=== PATIENT | male | born 1960 | race Caucasian/White ===

== ENCOUNTER 2021-07-21 10:37 | Emergency (ER) | payer OTHER ==
[2021-07-21 12:10] LABS: BUN Blood Urea Nitrogen 10 mg/dL (7-18); Bicarbonate 29 mmol/L (21-32); Glucose Level 88 mg/dL (74-106); Sodium Level 143 mmol/L (136-145)
--- NOTE | 2021-07-21 12:12 | ER ---
Nurse's Notes [facility] Name: Jose Ny Age: 60 yrs Sex: Male : 1960 Arrival Date: 07/21/2021 Time: 10:40 Bed 4 Private MD: Juan Carlos Adams Diagnosis: Pruritus, unspecified Presentation: 07/21 10:57 Chief complaint: Pt's sister states "he had shingles back in June but he says the aa5 burning it's getting worse". Coronavirus screen: At this time, the client does not indicate any symptoms associated with coronavirus-19. Ebola Screen: No symptoms or risks identified at this time. Initial Sepsis Screen: Does the patient meet any 2 criteria? No. Patient's initial sepsis screen is negative. Does the patient have a suspected source of infection? No. Patient's initial sepsis screen is negative. Risk Assessment: Do you want to hurt yourself or someone else? Unable to obtain. Onset of symptoms was July 2021. 10:57 Method Of Arrival: Ambulatory aa5 10:57 Acuity: DREAD 4 aa5 Triage Assessment: 11:00 General: Appears distressed, uncomfortable, Behavior is cooperative, appropriate for bp age, anxious. Pain: Complains of pain in anterior aspect of left shoulder. EENT: No deficits noted. Neuro: Level of Consciousness is awake, alert, obeys commands, Oriented to Appropriate for age. Cardiovascular: Rhythm is sinus rhythm. Respiratory: No deficits noted. GI: No signs and/or symptoms were reported involving the gastrointestinal system. : No signs and/or symptoms were reported regarding the genitourinary system. Derm: Rash noted that is NONE NOTED. Musculoskeletal: No signs and/or symptoms reported regarding the musculoskeletal system. Historical: - Allergies: 10:56 No Known Allergies; aa5 - PMHx: 10:56 CVA; Hypercholesterolemia; aa5 - Immunization history:: Client reports having NOT received the Covid vaccine. - Social history:: Smoking status: Patient denies any tobacco usage or history of. Screenin:00 Abuse screen: Denies threats or abuse. Denies injuries from another. Nutritional bp screening: No deficits noted. Tuberculosis screening: No symptoms or risk factors identified. Fall Risk None identified. Assessment: 11:00 General: SEE TRIAGE NOTE. bp 12:00 Reassessment: No changes from previously documented assessment. Patient and/or family ll1 updated on plan of care and expected duration. Pain level reassessed. 13:00 Reassessment: No changes from previously documented assessment. Patient and/or family ll1 updated on plan of care and expected duration. Pain level reassessed. Vital Signs: 10:57 BP 141 / 90; Pulse 64; Resp 16 S; Temp 97.0(TE); Pulse Ox 100% on R/A; aa5 11:45 BP 137 / 70; Pulse 66; Resp 16; Pulse Ox 100% on R/A; mh5 13:04 BP 131 / 75; Pulse 65; Resp 16; Pulse Ox 100% ; ll1 ED Course: 10:40 Patient arrived in ED. mr 10:40 Juan Carlos Adams DO is Private Physician. mr 10:56 Tabitha Machado FNP-C is [facility]. kb 10:56 Nicole Adams MD is Attending Physician. kb 10:56 Arm band placed on. aa5 10:59 Triage completed. aa5 11:12 Elroy Brown, RN is Primary Nurse. bp 11:44 Patient has correct armband on for positive identification. Bed in low position. Call [facility] light in reach. Side rails up X 1. Warm blanket given. Pulse ox on. NIBP on. 11:44 Basic Metabolic Panel Sent. mh5 11:44 Basic Metabolic Panel Sent. mh5 13:04 No provider procedures requiring assistance completed. Patient did not have IV access ll1 during this emergency room visit. Administered Medications: No medications were administered Outcome: 12:11 Discharge ordered by MD. kb 13:05 Discharged to home ambulatory. ll1 13:05 Condition: stable 13:05 Discharge instructions given to patient, family, Instructed on discharge instructions, follow up and referral plans. medication usage, Demonstrated understanding of instructions, follow-up care, medications, Prescriptions given X 1. 13:06 Patient left the ED. ll1 Signatures: Tabitha Machado FNP-C FNP-Ckb RiveraShea mr BrooksOmayra RN RN Shelby Rodas Elroy Huffman, Jonatan Reilly RN, RN RN ll1 Corrections: (The following items were deleted from the chart) 10:57 10:56 PMHx: CVA 2016; aa5 aa5 11:00 10:57 Acuity: DREAD 5 aa5 aa5
--- NOTE | 2021-07-21 12:12 | EDPHYS ---
Physician Documentation [facility] Name: Jose Ny Age: 60 yrs Sex: Male : 1960 Arrival Date: 07/21/2021 Time: 10:40 Bed 4 Private MD: Bryan [facility] ED Physician Nicole Adams HPI: 07/21 11:24 This 60 yrs old Male presents to ER via Ambulatory with complaints of kb Shingles. 11:24 The patient's rash thought to be caused by an unknown cause. The rash is located on the kb anterior aspect of left shoulder. The rash can be described as erythematous. Onset: The symptoms/episode began/occurred 1 month(s) ago. Associated signs and symptoms: Pertinent positives: burning sensation, itching, Pertinent negatives: fever, Pain. Severity of symptoms: At their worst the symptoms were moderate in the emergency department the symptoms have improved. The patient has not experienced similar symptoms in the past. The patient has not recently seen a physician. Pt reports he had shingles to left shoulder in June. Reports rash has gone away, but burning sensation and itching are still there. Also reports skin burning and itching to right leg, abd, back and head. . Historical: - Allergies: 10:56 No Known Allergies; aa5 - PMHx: 10:56 CVA; Hypercholesterolemia; aa5 - Immunization history:: Client reports having NOT received the Covid vaccine. - Social history:: Smoking status: Patient denies any tobacco usage or history of. ROS: 11:24 Constitutional: Negative for fever, chills, and weight loss. kb 11:24 Skin: Positive for of the face, scalp, chest, abdomen, left arm and right leg, itching and burning. 11:24 All other systems are negative. Exam: 11:24 Constitutional: This is a well developed, well nourished patient who is awake, alert, kb and in no acute distress. Head/Face: Normocephalic, atraumatic. ENT: Moist Mucous membranes Respiratory: Respirations even and unlabored. No increased work of breathing, no retractions or nasal flaring. MS/ Extremity: Pulses equal, no cyanosis. Neurovascular intact. Full, normal range of motion. Neuro: Awake and alert, GCS 15, oriented to person, place, time, and situation. Moves all extremities. Normal gait. Psych: Awake, alert, with orientation to person, place and time. Behavior, mood, and affect are within normal limits. 11:24 Skin: rash a mild rash is noted, rash can be described as erythematous, on the anterior aspect of left shoulder. Vital Signs: 10:57 BP 141 / 90; Pulse 64; Resp 16 S; Temp 97.0(TE); Pulse Ox 100% on R/A; aa5 11:45 BP 137 / 70; Pulse 66; Resp 16; Pulse Ox 100% on R/A; mh5 13:04 BP 131 / 75; Pulse 65; Resp 16; Pulse Ox 100% ; ll1 MDM: 11:02 Patient medically screened. kb 11:26 Data reviewed: vital signs, nurses notes. Data interpreted: Pulse oximetry: on room air kb is 100 %. Interpretation: normal. 12:10 Counseling: I had a detailed discussion with the patient and/or guardian regarding: the kb historical points, exam findings, and any diagnostic results supporting the discharge/admit diagnosis, the need for outpatient follow up, a family practitioner, to return to the emergency department if symptoms worsen or persist or if there are any questions or concerns that arise at home. 07/21 11:13 Order name: Basic Metabolic Panel kb 07/21 11:13 Order name: Basic Metabolic Panel; Complete Time: 12:10 EDMS Administered Medications: No medications were administered Disposition Summary: 07/21/21 12:11 Discharge Ordered Location: Home kb Condition: Stable kb Diagnosis - Pruritus, unspecified kb Followup: kb - With: Emergency Department - When: As needed - Reason: Worsening of condition Followup: kb - With: Private Physician - When: 2 - 3 days - Reason: Recheck today's complaints, Continuance of care, Re-evaluation by your physician Discharge Instructions: - Discharge Summary Sheet kb - Rash, Adult, [id number] kb - Pruritus kb Forms: - Medication Reconciliation Form kb - Thank You Letter kb - Antibiotic Education kb - Prescription Opioid Use kb Prescriptions: - Neurontin 300 mg Oral Capsule - take 1 capsule by ORAL route At bedtime; 20 capsule; Refills: 0, Product kb Selection Permitted Addendum: 07/22/2021 14:20 Co-signature as Attending Physician, Nicole Adams MD I agree with the assessment and s p3 plan of care. Signatures: Dispatcher [employer] Tabitha Dean, [employer]UME CHUTE OPERATOR-Omayra Acevedo RN RN aa5 Nicole dAams MD MD sp3 Corrections: (The following items were deleted from the chart) 07/21 10:57 10:56 PMHx: CVA 2016; aa5 aa5
[2021-07-21 13:20] VITALS: TEMP 97; O2SAT 100
[2021-07-21 13:23] VITALS: BP 131/75
== END 2021-07-21 13:06 | disposition home or self-care (01) ==
LOC: ER 10:37
DX: L29.9 Pruritus, unspecified (principal); Z86.73 Personal history of transient ischemic attack (TIA), and cerebral infarction without residual deficits
CPT/HCPCS: 36415; 80048; 99284

== ENCOUNTER 2021-08-13 17:14 | Emergency (ER) | payer OTHER ==
--- NOTE | 2021-08-13 18:28 | RAD REPORT ---
EXAM DESCRIPTION: CT - Head Brain Wo Cont - 08/13/2021 6:14 pm CLINICAL HISTORY: dizzines, N/V HX of vertigo and CVA Headache, drowsiness COMPARISON: Brain Wo Cont dated 08/11/2021 TECHNIQUE: All CT scans are performed using dose optimization technique as appropriate and may inclu de automated exposure control or mA/KV adjustment according to patient size. FINDINGS: No intracranial hemorrhage, hydrocephalus or extra-axial fluid collection.Large area of gl iosis is seen in the left temporoparietal region compatible with old infarct.No areas of brain edema or evidence of midline shift. Mild vertebral atherosclerosis. The paranasal sinuses and mastoids are clear. The calvarium is intact. IMPRESSION: No acute intracranial abnormality.
[2021-08-13] MEDS ORDERED: ONDANSETRON 4 MG/2 ML VIAL ONE (19:33)
[2021-08-13] MEDS ORDERED: NA CHLORIDE 0.9% 1,000 ML ONE (19:33)
[2021-08-13] MEDS ORDERED: MECLIZINE HCL 12.5 MG TAB ONE (19:36)
[2021-08-13 20:13] LABS: ALT/SGPT 17 U/L (12-78); AST/SGOT 13 U/L (15-37); Albumin 3.3 g/dL (3.4-5.0); Alkaline Phosphatase 97 U/L (45-117); BUN Blood Urea Nitrogen 13 mg/dL (7-18); Bicarbonate 26 mmol/L (21-32); Bilirubin Direct 0.1 mg/dL (0-0.2); Bilirubin Total 0.5 mg/dL (0.2-1.0); Glucose Level 101 mg/dL (74-106); Lipase 44 U/L (73-393); Potassium 3.5 mmol/L (3.5-5.1); Protein, Total 7.8 g/dL (6.4-8.2); Sodium Level 143 mmol/L (136-145)
[2021-08-13 20:19] LABS: Absolute Lymphocytes (CBC) 0.9 K/uL (0.7-4.9); Basophils % 0.7 % (0-1.3); Hematocrit 38.5 % (39.6-49.0); Lymphocytes % 17.1 % (15.3-44.8); MPV 8.9 fL (7.6-11.3); RBC Red Blood Cell Count 4.82 M/uL (4.33-5.43)
--- NOTE | 2021-08-13 20:50 | ER ---
Nurse's Notes [facility] Name: Jose Ny Age: 61 yrs Sex: Male : 1960 Arrival Date: 08/13/2021 Time: 17:16 Bed 15 Private MD: Juan Carlos Adams Diagnosis: Other peripheral vertigo Presentation: 08/13 17:38 Chief complaint: Patient states: N/V and dizziness that began approximately 1630. Pt ss had an episode of vertigo before and states that this feels similar. Coronavirus screen: Client denies travel out of the [place] in the last 14 days. Ebola Screen: Patient denies exposure to infectious person. Patient denies travel to an Ebola-affected area in the 21 days before illness onset. Initial Sepsis Screen: Does the patient meet any 2 criteria? No. Patient's initial sepsis screen is negative. Does the patient have a suspected source of infection? No. Patient's initial sepsis screen is negative. Risk Assessment: Do you want to hurt yourself or someone else? Patient reports no desire to harm self or others. Onset of symptoms was August 13, 2021 at 16:30. 17:38 Method Of Arrival: Wheelchair ss 17:38 Acuity: DREAD 3 ss Historical: - Allergies: 17:41 No Known Allergies; ss - PMHx: 17:41 CVA; Hypercholesterolemia; vertigo; ss - PSHx: 17:41 None; ss - Immunization history:: Client reports having NOT received the Covid vaccine. - Social history:: Smoking status: Patient denies any tobacco usage or history of. Assessment: 19:15 General: Appears uncomfortable, Behavior is calm, cooperative. Pain:. jt3 19:15 Pain:. jt3 19:16 Pain:. jt3 19:59 Reassessment: Patient appears in no apparent distress at this time. Patient and/or ld1 family updated on plan of care and expected duration. Pain level reassessed. Patient is alert, oriented x 3, equal unlabored respirations, skin warm/dry/pink. Patient states feeling better. GI: Abdomen is round non-distended, Bowel sounds present X 4 quads. Abd is soft Abdomen is tender to palpation X 4 quads. Reports nausea, vomiting. Vital Signs: 17:38 BP 145 / 84; Pulse 71; Resp 16; Temp 97.5(TE); Pulse Ox 98% on R/A; Weight 79.38 kg; Height 5 ft. 8 in. (172.72 cm); Pain 0/10; 20:00 BP 144 / 80; Pulse 77; Resp 20; Pulse Ox 100% on R/A; ld1 20:28 BP 138 / 77; Pulse 68; Resp 19; Pulse Ox 99% on R/A; ld1 17:38 Body Mass Index 26.61 (79.38 kg, 172.72 cm) ED Course: 17:16 Patient arrived in ED. mr 17:17 Juan Carlos Adams, is Private Physician. mr 17:41 Triage completed. ss 17:41 Arm band placed on right wrist. 18:07 Kemar Tiwari, VASHTI is Primary Nurse. jt3 18:13 CT Head Brain wo Cont In Process Unspecified. EDWY 19:08 Nicole Adams MD is Attending Physician. sp3 21:01 No provider procedures requiring assistance completed. IV discontinued, intact, ld1 bleeding controlled, No redness/swelling at site. Administered Medications: 19:51 Drug: NS 0.9% 1000 ml Route: IV; Rate: 1 bolus; Site: left forearm; ld1 19:51 Drug: Zofran (Ondansetron) 4 mg Route: IVP; Site: left forearm; ld1 19:51 Follow up: Response: No adverse reaction ld1 19:51 Drug: Meclizine 25 mg Route: PO; ld1 19:51 Follow up: Response: No adverse reaction ld1 Outcome: 20:49 Discharge ordered by . sp3 21:01 Discharged to home ambulatory. ld1 21:01 Condition: stable 21:01 Discharge instructions given to patient, family, Instructed on discharge instructions, follow up and referral plans. medication usage, Demonstrated understanding of instructions, follow-up care, medications, Prescriptions given X 1. 21:01 Patient left the ED. ld1 Signatures: Dispatcher [employer] [facility] RaulShea mr GiordanoMiranda, RN RN Payton Esparza RN RN ld1 Nicole Adams MD MD sp3 Kemar Tiwari RN RN jt3
--- NOTE | 2021-08-13 20:50 | EDPHYS ---
Physician Documentation [facility] Name: Jose Ny Age: 61 yrs Sex: Male : 1960 Arrival Date: 08/13/2021 Time: 17:16 Bed 15 Private MD: Bryan [facility] ED Physician Nicole Adams HPI: 08/13 19:27 This 61 yrs old Male presents to ER via Wheelchair with complaints of sp3 Vomiting, Dizziness. 19:27 61-year-old male with a history of prior CVA, hypercholesterolemia, peripheral vertigo sp3 now presents with nausea, vomiting, dizziness that started approximately 4:30 PM suddenly while preparing to get into the vehicle to attend bahai. Patient denies any pain of any sort including headache, neck pain, chest pain, shortness of breath, back pain, abdominal pain, diarrhea, extremity pain, focal weakness, rash, changes in baseline speech and mentation patterns, memory, any other significant findings on ROS at this time. And of ROS is negative. Symptoms are tolerable at rest but worsened on any movement of his head. Patient's had several bouts of emesis today without any blood or mucus. Patient denies any injury. He also states that this feels like his prior vertigo episodes.. Historical: - Allergies: 17:41 No Known Allergies; ss - PMHx: 17:41 CVA; Hypercholesterolemia; vertigo; ss - PSHx: 17:41 None; ss - Immunization history:: Client reports having NOT received the Covid vaccine. - Social history:: Smoking status: Patient denies any tobacco usage or history of. ROS: 19:28 Constitutional: Negative for fever, chills, and weight loss, Eyes: Negative for injury, sp3 pain, redness, and discharge, ENT: Negative for injury, pain, and discharge, Neck: Negative for injury, pain, and swelling, Cardiovascular: Negative for chest pain, palpitations, and edema, Respiratory: Negative for shortness of breath, cough, wheezing, and pleuritic chest pain, Abdomen/GI: Negative for abdominal, diarrhea, and constipation, MS/Extremity: Negative for injury and deformity, Skin: Negative for injury, rash, and discoloration, Neuro: Negative for headache, weakness, numbness, tingling, and seizure, Psych: Negative for depression, anxiety, suicide ideation, homicidal ideation, and hallucinations, Allergy/Immunology: Negative for hives, rash, and allergies. 19:29 All other systems are negative. sp3 Exam: 19:29 Constitutional: This is a well developed, well nourished patient who is awake, alert, sp3 and in no acute distress. Head/Face: Normocephalic, atraumatic. Eyes: Pupils equal round and reactive to light, extra-ocular motions intact. Lids and lashes normal. Conjunctiva and sclera are non-icteric and not injected. Cornea within normal limits. Periorbital areas with no swelling, redness, or edema. Patient has horizontal nystagmus. Remainder of extraocular movements are normal and patient has no other cranial nerve findings. ENT: Nares patent. No nasal discharge, no septal abnormalities noted. External auditory canals are clear. Oropharynx with no redness, swelling, or masses, exudates, or evidence of obstruction, uvula midline. Mucous membranes moist. Neck: Trachea midline, no thyromegaly or masses palpated, and no cervical lymphadenopathy. Supple, full range of motion without nuchal rigidity, or vertebral point tenderness. No Meningismus. Chest/axilla: Normal chest wall appearance and motion. Nontender with no deformity. No lesions are appreciated. Cardiovascular: Regular rate and rhythm with a normal S1 and S2. No gallops, murmurs, or rubs. Normal PMI, no JVD. No pulse deficits. Respiratory: Lungs have equal breath sounds bilaterally, clear to auscultation and percussion. No rales, rhonchi or wheezes noted. No increased work of breathing, no retractions or nasal flaring. Abdomen/GI: Soft, non-tender, with normal bowel sounds. No distension or tympany. No guarding or rebound. No evidence of tenderness throughout. Back: No spinal tenderness. No costovertebral tenderness. Full range of motion. Skin: Warm, dry with normal turgor. Normal color with no rashes, no lesions, and no evidence of cellulitis. MS/ Extremity: Pulses equal, no cyanosis. Neurovascular intact. Full, normal range of motion. Neuro: Awake and alert, GCS 15, oriented to person, place, time, and situation. Cranial nerves II-XII grossly intact. Motor strength 5/5 in all extremities. Sensory grossly intact. Cerebellar exam normal. Gait not tested. Patient's mentation is slowed secondary to his prior CVA but per family member is at his baseline. Psych: Awake, alert, with orientation to person, place and time. Behavior, mood, and affect are within normal limits. Vital Signs: 17:38 BP 145 / 84; Pulse 71; Resp 16; Temp 97.5(TE); Pulse Ox 98% on R/A; Weight 79.38 kg; ss Height 5 ft. 8 in. (172.72 cm); Pain 0/10; 20:00 BP 144 / 80; Pulse 77; Resp 20; Pulse Ox 100% on R/A; ld1 20:28 BP 138 / 77; Pulse 68; Resp 19; Pulse Ox 99% on R/A; ld1 17:38 Body Mass Index 26.61 (79.38 kg, 172.72 cm) ss MDM: 19:12 Patient medically screened. sp3 19:30 Data reviewed: vital signs, nurses notes. ED course: 61-year-old male with vertigo and sp3 vomiting consistent with another episode of peripheral vertigo as per his history. I am not concerned about another CVA, meningitis, ICH, sepsis/infection, vascular compromise, embolic event, carotid dissection, aortic dissection, ACS, PE, or any other critical findings at this time. Will administer meclizine 25 mg p.o., Zofran 4 mg IV, normal saline 1 L as well as routine laboratory values and CT scan of the head. If work-up is negative patient feels better we will discharge him home on meclizine prescription with follow-up to his PCP.. 20:48 ED course: Patient is mildly improved. CT scan is negative and laboratory values sp3 demonstrate no significant abnormality. Will discharge patient on meclizine with PCP follow-up.. 08/13 19:17 Order name: Basic Metabolic Panel; Complete Time: 20:48 sp3 08/13 19:17 Order name: CBC with Diff; Complete Time: 20:48 sp3 08/13 17:44 Order name: CT Head Brain wo Cont; Complete Time: 18:32 ss 08/13 19:17 Order name: Hepatic Function; Complete Time: 20:48 sp3 08/13 19:17 Order name: Lipase; Complete Time: 20:48 sp3 08/13 19:17 Order name: IV Saline Lock; Complete Time: 19:51 sp3 08/13 19:17 Order name: Labs collected and sent; Complete Time: 19:51 sp3 Administered Medications: 19:51 Drug: NS 0.9% 1000 ml Route: IV; Rate: 1 bolus; Site: left forearm; ld1 19:51 Drug: Zofran (Ondansetron) 4 mg Route: IVP; Site: left forearm; ld1 19:51 Follow up: Response: No adverse reaction ld1 19:51 Drug: Meclizine 25 mg Route: PO; ld1 19:51 Follow up: Response: No adverse reaction ld1 Disposition Summary: 08/13/21 20:49 Discharge Ordered Location: Home sp3 Condition: Stable sp3 Diagnosis - Other peripheral vertigo sp3 Followup: sp3 - With: Private Physician - When: Upon discharge from the Emergency Department - Reason: Recheck today's complaints Discharge Instructions: - Discharge Summary Sheet sp3 - Vertigo sp3 Forms: - Medication Reconciliation Form sp3 - Thank You Letter sp3 - Antibiotic Education sp3 - Prescription Opioid Use sp3 Prescriptions: - Meclizine 25 mg Oral Tablet - take 1 tablet by ORAL route every 8 hours As needed; 30 tablet; Refills: 0, sp3 Product Selection Permitted Signatures: Dispatcher [employer] Miranda Medina RN RN Amando Callahan MD MD ma2 Payton Esparza RN RN ld1 Nicole Adams MD MD sp3
[2021-08-13 21:05] VITALS: TEMP 97.5
[2021-08-13 21:08] VITALS: BP 138/77; O2SAT 99
--- OUTSIDE RECORDS SUMMARY | 2021-08-16 20:08 | XMS REPORT | Continuity of Care Document ---
:1960 Author Organization [facility] t Address [address] [place] [address] Care Team Providers Name Role Phone Aron Adams Primary Care Physician City, Nurse Visit Sandro Attending Clinician Unavailable Payers Payer Name Policy Type Policy Number Effective Date Expiration Date S ource Problems This patient has no known problems. Allergies, Adverse Reactions, Alerts This patient has no known allergies or adverse reactions. Social History Social Habit Start Date Stop Date Quantity Comments Source Sex Assigned At [birth year] [facility] 00:00:00 00:00:00 [facility] Smoking Status Start Date Stop Date Source Unknown if ever smoked General acute hospital Medications This patient has no known medications. Procedures This patient has no known procedures. Encounters Start End Encounter Admission Attending Care Care Encounter Source Date/Time Date/Time Type Type Clinicians Facility Department ID 2021-07-28 2021-07-28 Telephone Justine Rosalind [facility] [id number] [facility] 00:[facility] 00:[facility]:00 Nurse Visit NINO [id number] Jono ABRAHAM [id number] [facility] [id number] [address] [facility] 2021-07-09 2021-07-09 Out[facility] [id number] 2021-06-30 2021-06-30 Out[facility] [id number] [facility] 2021-06-06 2021-06-06 Out[facility] [id number] [facility] 2021-05-05 2021-05-05 Out[facility] [id number] [facility] 2021-04-22 2021-04-22 Out[facility] [id number] [facility] 2021-03-21 2021-03-21 Outpatient [facility] [id number] [facility] Results This patient has no known results.
== END 2021-08-13 21:01 | disposition home or self-care (01) ==
LOC: ER 17:14
DX: H81.399 Other peripheral vertigo, unspecified ear (principal); E78.00 Pure hypercholesterolemia, unspecified; Z86.73 Personal history of transient ischemic attack (TIA), and cerebral infarction without residual deficits
CPT/HCPCS: 85025; 80048; 36415; 80076; 83690; 70450; 96374; 99283; J7030; J2405

== ENCOUNTER 2022-05-27 16:23 | Emergency (ER) | payer OTHER ==
--- OUTSIDE RECORDS SUMMARY | 2022-05-27 16:27 | XMS REPORT | Continuity of Care Document ---
:1960 Author Organization [facility] t Address [address] [place] [address] Care Team Providers Name Role Phone Juan Carlos Adams Primary Care Physician Juan Carlos Adams Attending Clinician Unavailable GUU_SHENG_RADHAW Attending Clinician Unavailable Doctor Unassigned, [place] Attending Clinician Unavailable Lab, Ang - Db Attending Clinician Unavailable Romaine Gary MD Attending Clinician ROMAINE GARY Attending Clinician Unavailable Tiffanie Pat MD Attending Clinician Vasu Mcdermott MD Attending Clinician Marvin Liu MD Attending Clinician Jc Blanchard MD Attending Clinician JC BLANCHARD Attending Clinician Unavailable DESIRE BUCK Attending Clinician Unavailable GUU_SHENG_YAW Admitting Clinician Unavailable Payers Payer Name Policy Type Policy Number Effective Date Expiration Date [facility] [id number] 2021 [employer] [place] 00:00:00 (MEDICAID HMO) Problems Condition Condition Condition Status Onset Resolution Last Treating Co mments Source Name Details Category Date Date Treatment Clinician Date No known No known Disease Unive rs active active ity of problems problems [facility] Allergies, Adverse Reactions, Alerts Allergy Allergy Status Severity Reaction(s) Onset Inactive Treating Comm ents Source Name Type Date Date Clinician NO KNOWN Drug Active Univers ALLERGIE Class ity of S [facility] Social History Social Habit Start Date Stop Date Quantity Comments Source Exposure to Not sure [facility] SARS-CoV-2 (event) Medica l Branch [facility] [birth year] [facility] 00:00:00 00:00:00 Medical Branch Smoking Status Start Date Stop Date Source Tobacco smoking consumption [facility] Medical unknown Branch Medications Ordered Filled Start Stop Current Ordering Indication Dosage Frequency Signature Comments Components Source Medication Medication Date Date Medication? Clinician (SIG) Name Name cortese 2020-10 Yes [id number] Apply to Univers 0.1 % 2-15 area(s) 2 ity of lotion 00:00: (two) [place] 00 times Medical daily. Branch Avoid face, armpits, and groin. clobetasoL 2020-10 Yes [id number] Apply to Univers 0.05 % 2-15 area(s) 2 ity of cream 00:00: (two) [place] 00 times Medical daily. Branch mometasone 2020-10 Yes [id number] Apply to Univers 0.1 % 2-15 area(s) 2 ity of lotion 00:00: (two) [place] 00 times Medical daily. Branch Avoid face, armpits, and groin. clobetasoL 2020-10 Yes [id number] Apply to Univers 0.05 % 2-15 area(s) 2 ity of cream 00:00: (two) [place] 00 times Medical daily. Branch mometasone 2020-10 Yes [id number] Apply to Univers 0.1 % 2-15 area(s) 2 ity of lotion 00:00: (two) [place] 00 times Medical daily. Branch Avoid face, armpits, and groin. clobetasoL 2020- Yes [id number] Apply to Univers 0.05 % 2-15 area(s) 2 ity of cream 00:00: (two) [place] 00 times Medical daily. Branch mometasone 2020-10 Yes [id number] Apply to Univers 0.1 % 2-15 area(s) 2 ity of lotion 00:00: (two) [place] 00 times Medical daily. Branch Avoid face, armpits, and groin. clobetasoL 2020-10 Yes [id number] Apply to Univers 0.05 % 2-15 area(s) 2 ity of cream 00:00: (two) [place] 00 times Medical daily. Branch mometasone 2020-10 Yes [id number] Apply to Univers 0.1 % 2-15 area(s) 2 ity of lotion 00:00: (two) [place] 00 times Medical daily. Branch Avoid face, armpits, and groin. clobetasoL 2020-10 Yes [id number] Apply to Univers 0.05 % 2-15 area(s) 2 ity of cream 00:00: (two) [place] 00 times Medical daily. Branch mometasone 2020-10 Yes [id number] Apply to Univers 0.1 % 2-15 area(s) 2 ity of lotion 00:00: (two) [place] 00 times Medical daily. Branch Avoid face, armpits, and groin. clobetasoL 2020-10 Yes [id number] Apply to Univers 0.05 % 2-15 area(s) 2 ity of cream 00:00: (two) [place] 00 times Medical daily. Branch Procedures Procedure Date / Time Performing Clinician Source Performed AUTHORIZATION FOR 2022-03-08 05:01:00 Doctor Unassigned, No [facility] RELEASE OF PHI Name Medical Branch XR SHOULDER 2+ VW LEFT 2021-10-30 18:57:00 Tiffanie Pat [facility] Encounters Start End Encounter Admission Attending Care Care Encounter Source Date/Time Date/Time Type Type Clinicians Facility Department ID 2022-05-19 Outpatient Adams, [facility] [id number] Common 14:17:02 Juan Carlos [facility] 2022-05-07 Outpatient Adams, [facility] [id number] Common 10:23:02 Juan Carlos [facility] 2022-03-10 Outpatient Adams, [facility] [id number] Common 12:11:00 Juan Carlos [facility] 2022-03-09 Outpatient Adams, [facility] [id number] Common 14:45:01 Juan Carlos [facility] 2022-02-09 Outpatient Adams, [facility] [id number] Common 08:24:02 Juan Carlos [facility] 2021-12-18 Outpatient Adams, [facility] [id number] Common 09:55:02 Juan Carlos [facility] 2021-10-29 Outpatient Adams, [facility] [id number] Common 13:48:11 Juan Carlos 61997 [facility] 2021-10-29 Outpatient Adams, [facility] [id number] Common 13:47:27 Juan Carlos 22578 [facility] 2021-10-29 Outpatient Adams, [facility] [id number] Common 13:45:51 Juan Carlos 92926 [facility] 2021-10-29 Outpatient Adams, [facility] [id number] Common 13:28:02 Juan Carlos [id number] [facility] 2021-10-29 Outpatient Adams, [facility] [id number] Common 13:27:44 Juan Carlos 98217 [facility] 2021-10-29 Outpatient Adams, [facility] [id number] Common 13:16:51 Juan Carlos 83055 [facility] 2021-10-29 Outpatient Adams, [facility] [id number] Common 13:16:31 Juan Carlos 85482 [facility] 2022-05-25 2022-05-25 ambulatory [facility] [id number] Common 00:00:00 00:00:00 [facility] 2022-05-22 2022-05-22 Outpatient GUU_SHENG_Y MEHOP MEHOP [id number] [place] 00:00:00 00:[place] [id number] da [facility] Program 2022-05-21 2022-05-21 Outpatient GUU_SHENG_Y MEHOP MEHOP [id number] [place] 00:00:00 [place] [id number] [facility] 2022-05-21 2022-05-21 ambulatory STLMLC STL[facility]C [id number] Common 00:00:00 00:00:00 [facility] 2022-05-20 2022-05-20 ambulatory STLMLC STLMLC [id number] Common 00:00:00 00:00:00 [facility] 2022-05-19 2022-05-19 ambulatory STLMLC STLMLC [id number] Common 00:00:00 00:00:00 [facility] 2022-05-12 2022-05-12 Outpatient GUU_SHENG_Y MEHOP MEHOP [id number] [place] 00:00:00 00:[place] [id number] [facility] 2022-05-11 2022-05-11 ambulatory STLMLC STLMLC [id number] Common 00:00:00 00:00:00 [facility] 2022-05-08 2022-05-08 ambulatory STLMLC STLMLC [id number] Common 00:00:00 00:00:00 [facility] 2022-05-05 2022-05-05 ambulatory STLMLC STLMLC [id number] Common 00:00:00 00:00:00 [facility] 2022-04-29 2022-04-29 ambulatory STLMLC STLMLC [id number] Common 00:00:00 00:00:00 [facility] 2022-04-27 2022-04-27 ambulatory STLMLC STLMLC [id number] Common 00:00:00 00:00:00 [facility] 2022-04-27 2022-04-27 ambulatory STLMLC STLMLC [id number] Common 00:00:00 00:00:00 [facility] 2022-04-08 2022-04-08 Outpatient GUU_SHENG_Y MEHOP MEHOP [id number]- [place] 10:56:00 10:56:00 [place] [id number] [facility] 2022-04-06 2022-04-06 Outpatient GUU_SHENG_Y MEHOP MEHOP [id number] [place] 11:51:00 11:51:00 AW da [facility] 2022-03-09 2022-03-09 ambulatory STLMLC STLMLC [id number] Common 00:00:00 00:00:00 [facility] 2022-03-08 2022-03-08 Orders Doctor CHA [id number] Univers 00:00:00 00:00:00 Only Unassigned, STEFFEN [id number] [facility] [id number] Mumtaz as [phone] [address] 2022-03-04 2022-03-04 Outpatient GUU_SHENG_Y MEHOP MEHOP [id number] [place] 11:27:00 11:27:00 AW [facility] 2022-02-18 2022-02-18 ambulatory STLMLC STLMLC [id number] Common 00:00:00 00:00:00 [facility] 2022-02-18 2022-02-18 ambulatory STLMLC STLMLC [id number] Common 00:00:00 00:00:00 [facility] 2022-02-18 2022-02-18 ambulatory STLMLC STLMLC [id number] Common 00:00:00 00:00:00 [facility] 2022-02-10 2022-02-10 ambulatory STLMLC STLMLC [id number] Common 00:00:00 00:00:00 [facility] 2022-02-05 2022-02-05 ambulatory STLMLC STLMLC [id number] Common 00:00:00 00:00:00 [facility] 2022-02-02 2022-02-02 ambulatory STLMLC STLMLC [id number] Common 00:00:00 00:00:00 [facility] 2022-01-14 2022-01-14 Outpatient GUU_SHENG_Y MEHOP MEHOP [id number] [place] 03:25:00 03:25:00 AW [facility] 2022-01-13 2022-01-13 Outpatient GUU_SHENG_Y MEHOP MEHOP 116 [id number]- [place] 10:07:00 10:07:00 AW [facility] 2021-12-22 2021-12-22 Outpatient GUU_SHENG_Y MEHOP MEHOP [id number] [place] 11:02:00 11:02:00 AW [facility] 2021-12-10 2021-12-10 Outpatient GUU_SHENG_Y MEHOP MEHOP [id number] [place] 11:08:00 11:08:00 AW [facility] 2021-11-21 2021-11-21 Outpatient GUU_SHENG_Y MEHOP MEHOP [id number] [place] 01:31:00 01:31:00 AW [facility] 2021-11-17 2021-11-17 Asset Administrator Lab, Ang - Db [facility] [id number] Univers 10:30:00 10:45:00 [facility] [id number] [facility] [id number] Mumtaz as PATRICIA?BLEA [phone] [address] MEDICAL OFFICE BUILDING 2021-11-17 2021-11-17 Outpatient R [facility] [id number] Univers 10:30:00 10:30:00 [id number] [facility]-11-17 2021-11-17 [facility] [id number] Univers 10:30:00 10:30:00 [facility] 2021-11-07 2021-11-07 Outpatient GUU_SHENG_Y MEHOP MEHOP [id number] [place] 09:42:00 09:42:00 AW [facility] 2021-11-06 2021-11-06 Outpatient GUU_SHENG_Y MEHOP MEHOP [id number] [place] 06:28:00 06:28:00 AW [facility] 2021-11-05 2021-11-05 ambulatory STLMLC STLMLC [id number] Common 00:00:00 00:00:00 [facility] 2021-11-04 2021-11-04 Telephone Bi [facility] [id number] [id number] Univers 00:00:00 00:00:00 Tiffanie HEALTH [id number] i ty [id number] [id number] [facility] [id number] Branch 2021-10-30 2021-10-30 Hospital Sharron [facility] [id number] Univers 12:32:56 23:59:00 Encounter Vasu Pereyra Y HEALTH [id number] ity [id number] [id number] [facility] [id number] Branch 2021-10-30 2021-10-30 Office Marvin Liu [facility] 1.2.840. 114 [id number] Univers 11:15:00 12:31:56 Visit Jc Blanchard HEALTH [id number] it[id number] [id number] [facility] 027 Branch 2021-10-30 2021-10-30 Outpatient Tavon BLANCHARD [facility] [id number] Univers 11:15:00 12:31:56 JC [facility] 2021-10-13 2021-10-13 Outpatient Tavon BUCK [facility] [id number] Univers 10:15:00 10:11:02 [facility] 2021-10-08 2021-10-08 Outpatient Tavon BUCK [facility] [id number] Univers 10:00:00 11:18:31 [facility] 2021-10-01 2021-10-01 ambulatory STLMLC STLMLC [id number] Common 00:00:00 00:00:00 [facility] 2021-09-29 2021-09-29 ambulatory STLMLC STLC [id number] Common 00:00:00 00:00:00 [facility] 2021-09-19 2021-09-19 Outpatient GUU_SHENG_Y MEHOP MEHOP [id number] [place] 01:51:00 01:51:00 [place] [id number] [facility] 2021-09-18 2021-09-18 Outpatient GUU_SHENG_Y MEHOP MEHOP [id number] [place] 03:47:00 03:47:00 [place] [id number] [facility] 2021-09-17 2021-09-17 [facility] [id number] Univers 09:30:00 10:57:28 DESIRE campos [facility] 2021-07-09 2021-07-09 Outpatient STLC STLC [id number] Common 00:00:00 00:00:00 [facility] 2021-07-02 2021-07-02 Outpatient GUU_SHENG_Y MEHOP MEHOP [id number] [place] 11:34:00 11:34:00 [place] [id number] [facility] 2021-06-30 2021-06-30 Outpatient STLC STLC [id number] Common 00:00:00 00:00:00 [facility] 2021-06-25 2021-06-25 Outpatient GUU_SHENG_Y MEHOP MEHOP [id number] [place] 10:44:00 10:44:00 [place] [id number] [facility] 2021-06-23 2021-06-23 Outpatient GUU_SHENG_Y MEHOP MEHOP [id number] [place] 03:14:00 03:14:00 [place] [id number] [facility] 2021-06-06 2021-06-06 Outpatient STLMLC STLC [id number] Common 00:00:00 00:00:00 [facility] 2021-05-23 2021-05-23 Outpatient GUU_SHENG_Y MEHOP MEHOP [id number] [place] 02:20:00 02:20:00 AW [id number] da [facility] 2021-05-21 2021-05-21 Outpatient NYLAU_WILDERG_Y [facility] 116 [id number] [place] 10:55:00 10:55:00 AW [id number] da [facility] 2021-05-05 2021-05-05 Outpatient STLMLC STLMLC [id number] Common 00:00:00 00:00:00 [facility] 2021-04-22 2021-04-22 Outpatient STLMLC STLMLC [id number] Common 00:00:00 00:00:00 [facility] 2021-03-21 2021-03-21 Outpatient STLMLC STLMLC [id number] Common 00:00:00 00:00:00 [facility] Results This patient has no known results.
--- NOTE | 2022-05-27 18:21 | EDPHYS ---
Physician Documentation [facility] Name: Jose Ny Age: 61 yrs Sex: Male : 1960 Arrival Date: 05/27/2022 Time: 16:26 Bed DIS3 Private MD: ED Physician Yoseph Vail HPI: 05/27 23:50 This 61 yrs old Male presents to ER via Ambulatory with complaints of finger infection. kb 23:50 The patient presents with an abscess of the dorsal aspect of distal phalanx of left kb middle finger. Description: erythematous, swollen, warm. Onset: The symptoms/episode began/occurred 1 week(s) ago. Possible cause(s): unknown. Associated signs and symptoms: Pertinent positives: erythema, swelling. Modifying factors: the symptoms are alleviated by nothing, the symptoms are aggravated by pressure, squeezing the lesion and expressing the contents, touching. Severity of symptoms: At their worst the symptoms were moderate, in the emergency department the symptoms are unchanged. The patient has not experienced similar symptoms in the past. The patient has not recently seen a physician. Historical: - Allergies: 16:32 No Known Allergies; ap3 - PMHx: 16:32 CVA; Hypercholesterolemia; Vertigo; ap3 - Immunization history:: Client reports having NOT received the Covid vaccine. - Social history:: Smoking status: Patient denies any tobacco usage or history of. ROS: 23:29 Constitutional: Negative for fever, chills, and weight loss. kb 23:29 Skin: Positive for abscess, of the left middle fingernail. 23:29 All other systems are negative. Exam: 23:49 Constitutional: This is a well developed, well nourished patient who is awake, alert, kb and in no acute distress. Head/Face: Normocephalic, atraumatic. ENT: Moist Mucous membranes Cardiovascular: Regular rate and rhythm with a normal S1 and S2. No gallops, murmurs, or rubs. No pulse deficits. Respiratory: Respirations even and unlabored. No increased work of breathing. Talking in full sentences MS/ Extremity: Pulses equal, no cyanosis. Neurovascular intact. Full, normal range of motion. Neuro: Awake and alert, GCS 15, oriented to person, place, time, and situation. Moves all extremities. Normal gait. Psych: Awake, alert, with orientation to person, place and time. Behavior, mood, and affect are within normal limits. 23:49 Skin: abscess, that is small, of the left middle fingernail, with fluctuance. Vital Signs: 16:31 BP 134 / 74; Pulse 78; Resp 17; Temp 98.7; Pulse Ox 98% ; Weight 70.76 kg; Height 5 ft. ap3 8 in. (172.72 cm); 16:31 Body Mass Index 23.72 (70.76 kg, 172.72 cm) ap3 Procedures: 23:51 I \T\ D: Incision and drainage was performed for an abscess of the dorsal aspect of kb distal phalanx of left middle finger Prepped with alcohol, Incised with 18G needle. Drained moderate amount purulent fluid. the patient tolerated the procedure well. MDM: 18:13 Patient medically screened. 23:28 Data reviewed: vital signs, nurses notes. Data interpreted: Pulse oximetry: on room air kb is 98 %. Interpretation: normal. Counseling: I had a detailed discussion with the patient and/or guardian regarding: the historical points, exam findings, and any diagnostic results supporting the discharge/admit diagnosis, the need for outpatient follow up, a family practitioner, to return to the emergency department if symptoms worsen or persist or if there are any questions or concerns that arise at home. Administered Medications: 18:47 Drug: Bactrim (trimethoprim-sulfamethoxazole) (160 mg-800 mg (DS) 1 tablet Route: PO; jl7 18:47 Follow up: Response: Medication administered at discharge. jl7 Disposition Summary: 05/27/22 18:20 Discharge Ordered Location: Home kb Condition: Stable kb Diagnosis - Cutaneous abscess of right hand kb Followup: kb - With: Private Physician - When: 2 - 3 days - Reason: Recheck today's complaints, Continuance of care, Re-evaluation by your physician Followup: kb - With: Emergency Department - When: As needed - Reason: Worsening of condition Discharge Instructions: - Discharge Summary Sheet kb - Paronychia, Dyqy-nt-Nisj kb Forms: - Medication Reconciliation Form kb - Thank You Letter kb - Antibiotic Education kb - Prescription Opioid Use kb Prescriptions: - Bactrim DS 800-160 mg Oral Tablet - take 1 tablet by ORAL route every 12 hours for 10 days; 20 tablet; Refills: 0, kb Product Selection Permitted Signatures: Tabitha Machado, Kamron Salcedo, RN RN jl7 Ligia Harper, RN RN ap3
--- NOTE | 2022-05-27 18:21 | ER ---
Nurse's Notes [facility] Name: Jose Ny Age: 61 yrs Sex: Male : 1960 Arrival Date: 05/27/2022 Time: 16:26 Bed DIS3 Private MD: Diagnosis: Cutaneous abscess of right hand Presentation: 05/27 16:31 Chief complaint: Patient states: he has pain and pressure in the tip of his middle ap3 finger of his left hand near the fingernail. Coronavirus screen: At this time, the client does not indicate any symptoms associated with coronavirus-19. Ebola Screen: No symptoms or risks identified at this time. Initial Sepsis Screen: Does the patient meet any 2 criteria? No. Patient's initial sepsis screen is negative. Does the patient have a suspected source of infection? No. Patient's initial sepsis screen is negative. Risk Assessment: Do you want to hurt yourself or someone else? Patient reports no desire to harm self or others. Onset of symptoms was May 27, 2022. 16:31 Method Of Arrival: Ambulatory ap3 16:31 Acuity: DREAD 4 ap3 Triage Assessment: 16:32 General: Appears in no apparent distress. Behavior is calm, cooperative. Pain: ap3 Complains of pain in left middle fingernail. Neuro: Level of Consciousness is awake, alert, obeys commands, Oriented to person, place, time, situation, Gait is steady. Respiratory: Airway is patent Respiratory effort is even, unlabored. Derm: Wound noted left middle fingernail. Historical: - Allergies: 16:32 No Known Allergies; ap3 - PMHx: 16:32 CVA; Hypercholesterolemia; Vertigo; ap3 - Immunization history:: Client reports having NOT received the Covid vaccine. - Social history:: Smoking status: Patient denies any tobacco usage or history of. Screenin:33 Abuse screen: Denies threats or abuse. Nutritional screening: No deficits noted. ap3 Tuberculosis screening: No symptoms or risk factors identified. 18:57 Fall Risk None identified. jl7 Vital Signs: 16:31 BP 134 / 74; Pulse 78; Resp 17; Temp 98.7; Pulse Ox 98% ; Weight 70.76 kg; Height 5 ft. ap3 8 in. (172.72 cm); 16:31 Body Mass Index 23.72 (70.76 kg, 172.72 cm) ap3 ED Course: 16:26 Patient arrived in ED. as 16:32 Triage completed. ap3 16:33 Arm band placed on right wrist. ap3 16:40 Yoseph Vail MD is Attending Physician. kdr 18:13 Tabitha Machado FNP-C is [facility]. kb 18:13 Yoseph Vail MD is Attending Physician. kb 18:41 Park Landon, RN is Primary Nurse. bm7 18:47 Kamron Hernandez, RN is Primary Nurse. jl7 18:57 Patient has correct armband on for positive identification. jl7 18:57 No provider procedures requiring assistance completed. Patient did not have IV access jl7 during this emergency room visit. Administered Medications: 18:47 Drug: Bactrim (trimethoprim-sulfamethoxazole) (160 mg-800 mg (DS) 1 tablet Route: PO; jl7 18:47 Follow up: Response: Medication administered at discharge. jl7 Medication: 18:57 VIS not applicable for this client. jl7 Outcome: 18:20 Discharge ordered by . kb 18:57 Discharged to home ambulatory, with family. jl7 18:57 Condition: stable 18:57 Discharge instructions given to patient, family, Instructed on discharge instructions, follow up and referral plans. medication usage, Demonstrated understanding of instructions, follow-up care, medications, Prescriptions given X 1. 18:57 Patient left the ED. jl7 Signatures: Tabitha Machado FNP-C [facility]-b Yoseph Vail MD MD kdr Martinez, Amelia as Kamron Hernandez, VASHTI RN jl7 Ligia Harper RN RN ap3 Park Landon, VASHTI [place] bm7
[2022-05-27] MEDS ORDERED: SMZ./TMP. 800/160 MG TABLET ONE (18:51)
[2022-05-27 20:42] VITALS: BP 134/74; TEMP 98.7; O2SAT 98
== END 2022-05-27 18:57 | disposition home or self-care (01) ==
LOC: ER 16:23
DX: L02.511 Cutaneous abscess of right hand (principal)

== ENCOUNTER 2022-06-09 05:18 | Emergency (ER) | payer OTHER ==
--- OUTSIDE RECORDS SUMMARY | 2022-06-09 05:22 | XMS REPORT | Continuity of Care Document ---
:1960 Author Organization [facility] t Address [address] [place] [address] Care Team Providers Name Role Phone Juan Carlos Adams Primary Care Physician Juan Carlos Adams Attending Clinician Unavailable Mali Daniel MD Attending Clinician [phone] Abhijeet Soto Attending Clinician GUU_SHENG_YAW Attending Clinician Unavailable Doctor Unassigned, [place] Attending Clinician Unavailable Lab, Ang - Db [...] Type Policy Number Effective Date Expiration Date [facility] [id number] 2021 [employer] [place] 00:00:00 (MEDICAID HMO) Problems Condition Condition Condition Status Onset Resolution Last Treating Co mments Source Name Details Category Date Date Treatment Clinician Date No known No known Disease Metho di active active st problems problems Hospit [facility] l Aphasia Aphasia Problem Active 2022-05-30 Me moria (finding) (finding) 04:06:46 l Active Aryan Problem 05/30/2022 [facility] Hyperlipid Hyperlipi Problem Active 2022-05-30 Memoria emia demia 04:06:46 l (disorder) (disorder) He rmann Active Problem 05/30/2022 [facility] Paresthesi Paresthes Problem Active 2022-05-30 Memoria a ia 04:06:46 l (finding) (finding) Herm simi Active Problem 05/30/2022 [facility] Cerebrovas Cerebrova Problem Resolve 2022-05-30 Memoria cular scular d 04:06:46 l accident accident Krishna n (disorder) (disorder) Resolved Problem 05/30/2022 [facility] Allergies, Adverse Reactions, Alerts Allergy Allergy Status Severity Reaction(s) Onset Inactive Treating Comm ents Source Name Type Date Date Clinician NO KNOWN Drug Active Univers ALLERGIE Class it[facility] of [facility] [place] [facility] [place] Social History Social Habit Start Date Stop Date Quantity Comments Source Exposure to Not sure [facility] SARS-CoV-2 (event) [facility] Social History 2021-05-23 2021-05-23 [facility] 20:00:59 20:00:59 Sex Ass[birth year] At [birth year] [facility] 00:00:00 00:00:00 Smoking Status Start Date Stop Date Source Tobacco smoking consumption unknown [facility] Medications Ordered Filled Start Stop Current Ordering Indication Dosage Frequency Signature Comments Components Source Medication Medication Date Date Medication? Clinician (SIG) Name Name meloxicam 2022- Yes 7.5mg QD Take 1 Meth omaira (Mobic) 7.5 8-29 -[address] mg tablet 00:00: 04:59 (7.5 mg [facility] 00 :00 total) by l mouth daily. simvastatin Yes 10mg QD Take 1 Meth omaira (ZOCOR) 10 8-12 tablet (10 st MG tablet 00:00: mg total) Hos ro 00 by mouth l every evening. simvastatin Yes TAKE 1 Jairo sreedhar 10 mg oral 2-23 TABLET BY l tablet 15:28: MOUTH Aryan 00 EVERY DAY IN THE EVENING simvastatin Yes TAKE 1 Jairo sreedhar 10 mg oral 2-23 TABLET BY l tablet 15:28: MOUTH [place] 00 EVERY DAY IN THE EVENING mometasone 2020-10 Yes [id number] Apply to Univers 0.1 % 2-15 area(s) 2 ity of lotion 00:00: (two) [place] 00 times Medical daily. Branch Avoid face, armpits, and groin. clobetasoL 2020-10 Yes [id number] Apply to Univers 0.05 % 2-15 area(s) 2 ity of cream 00:00: (two) [place] 00 times Medical daily. Branch mometasone 2020-10 Yes [id number] Apply to Univers 0.1 % 2-15 area(s) 2 ity of lotion 00:00: (two) [place] 00 times Medical daily. Branch Avoid face, armpits, and groin. clobetasoL 2020-10 Yes [id number] Apply to Univers 0.05 % 2-15 area(s) 2 ity of cream 00:00: (two) [place] 00 times Medical daily. Branch mometasone 2020-10 Yes [id number] Apply to Univers 0.1 % 2-15 area(s) 2 ity of lotion 00:00: (two) [place] 00 times Medical daily. Branch Avoid face, armpits, and groin. clobetasoL 2020- Yes [id number] Apply to Univers 0.05 % 2-15 area(s) 2 ity of cream 00:00: (two) [place] 00 times Medical daily. Branch mometasone 2020-10 Yes [id number] Apply to Univers 0.1 % 2-15 area(s) 2 ity of lotion 00:00: (two) [place] 00 times Medical daily. Branch Avoid face, armpits, and groin. clobetasoL 2020- Yes [id number] Apply to Univers 0.05 % 2-15 area(s) 2 ity of cream 00:00: (two) [place] 00 times Medical daily. Branch mometasone 2020-10 Yes [id number] Apply to Univers 0.1 % 2-15 area(s) 2 ity of lotion 00:00: (two) [place] 00 times Medical daily. Branch Avoid face, armpits, and groin. clobetasoL 2020-10 Yes [id number] Apply to Univers 0.05 % 2-15 area(s) 2 ity of cream 00:00: (two) [place] 00 times Medical daily. Branch mometasone 2020-10 Yes [id number] Apply to Univers 0.1 % 2-15 area(s) 2 ity of lotion 00:00: (two) [place] 00 times Medical daily. Branch Avoid face, armpits, and groin. clobetasoL 2020-10 Yes [id number] Apply to Univers 0.05 % 2-15 area(s) 2 ity of cream 00:00: (two) [place] 00 times Medical daily. Branch meclizine 2020-10 Yes 0 Memoria 25 mg oral 1-22 Refill(s) l tablet 15:24: gabapentin 2020-10 Yes 0 Memoria 300 MG Oral 1-22 Refill(s) l Capsule 15:24: meclizine 2020-10 Yes 0 Memoria 25 mg oral 1-22 Refill(s) l tablet 15:24: gabapentin 2020-10 Yes 0 Memoria 300 MG Oral 1-22 Refill(s) l Capsule 15:24: atorvastati Yes 20 mg = 1 M emoria n 20 MG 8-20 tab, PO, l Oral Tablet 20:17: Bedtime, # Aryan [Lipitor] 00 30 tab, 2 Refill(s), Pharmacy: [id number], 165.1, cm, 05/23/21 14:27:00 CDT, Height, 75.455, kg, 05/23/21 14:27:00 CDT, Weight atorvastati Yes 20 mg = 1 M emoria n 20 MG 8-20 tab, PO, l Oral Tablet 20:17: Bedtime, # Aryan [Lipitor] 00 30 tab, 2 Refill(s), Pharmacy: [facility] #[id number], 165.1, cm, 05/23/21 14:27:00 CDT, Height, 75.455, kg, 05/23/21 14:27:00 CDT, Weight Aspirin 81 2020-0 Yes 81 mg = 1 Me moria MG Delayed 8-20 tab, PO, l Release 19:47: Daily, 0 Krishna n Oral Tablet 00 Refill(s) [Aspi-Cor] Aspirin 81 2020- Yes 81 mg = 1 Me moria MG Delayed 8-20 tab, PO, l Release 19:47: Daily, 0 Krishna n Oral Tablet 00 Refill(s) [Aspi-Cor] Vital Signs Vital Name Observation Time Observation Value Comments Source Systolic (mm Hg) 2022-05-27 14:11:00 Jairo rial [place] Diastolic (mm Hg) 2022-05-27 14:11:00 Mem orial [place] Heart Rate 2022-05-27 14:11:00 [facility] Respitory Rate 2022-05-27 14:11:00 Memori al [place]ryan Weight 2022-05-27 14:11:00 [facility] [place] Systolic (mm Hg) 2021-11-26 15:18:00 Jairo rial [place] Diastolic (mm Hg) 2021-11-26 15:18:00 Mem orial [place] Heart Rate 2021-11-26 15:18:00 [facility] [place] Respitory Rate 2021-11-26 15:18:00 Memori al [place] Height 2021-11-26 15:18:00 167.64 cm [facility] [place] Weight 2021-11-26 15:18:00 [facility] [place] BMI Calculated 2021-11-26 15:18:00 Memori al [place]ryan Systolic (mm Hg) 2021-08-25 15:12:00 Jairo rial [place] Diastolic (mm Hg) 2021-08-25 15:12:00 Mem orial [place] Heart Rate 2021-08-25 15:12:00 [facility] [place] Respitory Rate 2021-08-25 15:12:00 Memori al Aryan Height 2021-08-25 15:12:00 160.02 cm [facility] [place] Weight 2021-08-25 15:12:00 [facility] [place] BMI Calculated 2021-08-25 15:12:00 Memori al [place] Systolic (mm Hg) 2021-05-23 19:27:00 Jairo Martinann Diastolic (mm Hg) 2021-05-23 19:27:00 Dulce Baeza Heart Rate 2021-05-23 19:27:00 Papi Baeza Respitory Rate 2021-05-23 19:27:00 Diaz Benitez Height 2021-05-23 19:27:00 165.1 cm Papi Baeza Weight 2021-05-23 19:27:00 Papi Baeza BMI Calculated 2021-05-23 19:27:00 Diaz Benitez Procedures Procedure Date / Time Performing Clinician Source Performed PARTIAL THROMBOPLASTIN 2022-06-01 17:22:00 [facility] TIME (PTT) [place] PROTHROMBIN TIME WITH INR 2022-06-01 17:22:00 [facility] [place] COMPREHENSIVE METABOLIC 2022-06-01 17:22:00 [facility] PANEL [place]abel HC COMPLETE BLD COUNT 2022-06-01 17:22:00 [place] [facility] W/AUTO DIFF [place] ESTIMATED GFR 2022-06-01 17:22:00 [facility] Y[place] MRI UPPER EXTREMITY 2022-05-13 21:04:54 [place] [facility] EXTERNAL STUDY [place]abel AUTHORIZATION FOR RELEASE 2022-03-08 05:01:00 Doctor Unassigned, [facility] [place] [facility] XR SHOULDER 2+ VW LEFT 2021-10-30 18:57:00 Tiffanie Pat [facility] Plan of Care Planned Activity Planned Date Details Comments Source Future Scheduled 2022-06-05 HEPATITIS B VACCINES [facility] Test 15:03:14 (1 of 3 - 3-dose series) [code = HEPATITIS B VACCINES (1 of 3 - 3-dose series)] Future Scheduled 2022-06-05 COVID-19 VACCINE (#1) [facility] Test 15:03:14 [code = COVID-19 VACCINE (#1)] Future Scheduled 2022-06-05 Hepatitis C screening [facility] Test 15:03:14 (procedure) [code = 250068593] Future Scheduled 2022-06-05 COLONOSCOPY SCREENING [facility] Test 15:03:14 [code = COLONOSCOPY SCREENING] Future Scheduled 2022-06-05 SHINGLES VACCINES (1 [facility] Test 15:03:14 of 2) [code = SHINGLES VACCINES (1 of 2)] Future Scheduled 2022-06-[address] [facility] Test 15:03:14 [code = INFLUENZA VACCINE] Encounters Start End Encounter Admission Attending Care Care Encounter Source Date/Time Date/Time Type Type Clinicians Facility Department ID 2022-05-19 Outpatient Adams, [facility] [id number] Common 14:17:02 Juan Carlos [facility] 2022-05-07 [facility] [id number] Common 10:23:02 Juan Carlos [facility] 2022-03-10 Out[facility] Adams, [facility] [id number] Common 12:11:00 Juan Carlos [facility] 2022-03-09 Out[facility] Adams, [facility] [id number] Common 14:45:01 Juan Carlos [facility] 2022-02-09 Out[facility] Adams, [facility] [id number] Common 08:24:02 Juan Carlos [facility] 2021-12-18 Out[facility] Adams, [facility] [id number] Common 09:55:02 Juan Carlos [facility] 2021-10-29 Out[facility] Adams, [facility] [id number] Common 13:48:11 Juan Carlos 71518 [facility] 2021-10-29 Out[facility] Adams, [facility] [id number] Common 13:47:27 Juan Carlos [id number] [facility] 2021-10-29 Outpatient Adams, [facility] [id number] Common 13:45:51 Juan Carlos [id number] [facility] 2021-10-29 Out[facility] Adams, [facility] [id number] Common 13:28:02 Juan Carlos 89032 [facility] 2021-10-29 Outpatient Adams, [facility] [id number] Common 13:27:44 Juan Carlos [id number] [facility] 2021-10-29 Outpatient Adams, [facility] [id number] Common 13:16:51 Juan Carlos [id number] [facility] 2021-10-29 Out[facility] Adams, [facility] [id number] Common 13:16:31 Juan Carlos 79717 [facility] 2022-09-02 2022-09-02 Outpatient MHIE MHIE [id number] Memoria 09:00:00 09:00:00 05 [facility] 2022-09-02 2022-09-02 Outpatient MHIE MHIE [id number] Memoria 09:00:00 09:00:00 05 [facility] 2022-06-01 2022-06-01 [facility], 1.2.840.1 [id number] Methodi 11:13:39 23:59:00 Encounter Mali [address]8468.1.[address] [place] 3.430.2.7 Hospit a .3.151569 l .8 2022-06-01 2022-06-01 [facility] 1.2.840.1 [id number] Methodi 10:45:00 12:57:37 Visit [place] 86542.1.[address] [place] 3.430.2.7 Hospit a .3.405331 l .8 2022-06-01 2022-06-01 [place] [address].2.840.1 [id number] Methodi 12:05:00 12:10:[address] [place] 3.430.2.7 Hospit a .3.720971 l .8 2022-06-01 2022-06-01 Outpatient [facility] [id number] [place] 00:00:00 00:00:[address] MALI [address] 2022-06-01 2022-06-01 Travel 1.2.840.1 .2.632.005 [id number] Methodi 00:00:00 00:00:[address] 3.430.2.7 0.2.7.3.698 Ho spita .3.777767 084.8 l .8 2022-06-01 2022-06-01 Orders [place], 1.2.840.1 [id number] Methodi 00:00:00 00:00:00 Only [place] 16648.1.[address] [place] 3.430.2.7 Hospit a .3.607231 l .8 2022-06-01 2022-06-01 Outpatient [facility] [id number] [place] 00:00:00 00:00:00 MALI [address] 2022-06-01 2022-06-01 Outpatient [facility] [id number] [place] 00:00:00 00:00:00 MALI 110 Method i 2022-05-27 2022-05-28 Outpatient nullFlavo MNA [id number] Memoria 14:00:00 04:59:59 r Neurology 04 l Jarvis Baeza 2022-05-27 2022-05-28 Outpatient nullFlavo MNA [id number] Memoria 14:00:00 04:59:59 r Neurology 04 l Jarvis Baeza 2022-05-27 2022-05-27 Outpatient DIANNE Soto NOÉ [id number] 09:00:00 23:59:59 Abhijeet 04 Issac 2022-05-27 2022-05-27 Outpatient IE PAXTON [id number] Memoria 09:00:00 09:00:00 04 l Aryan 2022-05-27 2022-05-27 ambulatory [facility] [id number] Common 00:00:00 00:00:00 [facility] 2022-05-25 2022-05-25 ambulatory [facility]C [facility] [id number] Common 00:00:00 00:00:00 [facility] 2022-05-22 2022-05-22 Outpatient JONATAN_COSTA CAMPBELL 116 357- [place] 00:00:00 00:00:00 [facility] 2022-05-21 2022-05-21 Outpatient NYLAU_SHENG_Y PAHOP PAHOP 116 357- [place] 00:00:00 00:00:00 [facility] 2022-05-21 2022-05-21 Travel 1.2.840.1 1.2.605.464 [id number] Methodi 00:00:00 00:00:[address] 3.430.2.7 0.2.7.3.698 Ho spita .3.514753 084.8 l .8 2022-05-21 2022-05-21 ambulatory [facility]C [facility] [id number] Common 00:00:00 00:00:00 [facility] 2022-05-20 2022-05-20 ambulatory [facility] [id number] Common 00:00:00 00:00:00 [facility] 2022-05-19 2022-05-19 ambulatory [facility] [id number] Common 00:00:00 00:00:00 [facility] 2022-05-12 2022-05-12 Outpatient JONATAN_WILDERG_Y [facility] 116 [id number] [place] 00:00:00 00:00:00 AW [id number] [facility] 2022-05-11 2022-05-11 ambulatory [facility]LMLC ST[facility] [id number] Common 00:00:00 00:00:00 [facility] 2022-05-08 2022-05-08 ambulatory [facility]LMLC [facility] [id number] Common 00:00:00 00:00:00 [facility] 2022-05-05 2022-05-05 ambulatory STLMLC ST[facility]C [id number] Common 00:00:00 00:00:00 [facility] 2022-04-29 2022-04-29 ambulatory [facility]LMLC [facility] [id number] Common 00:00:00 00:00:00 [facility] 2022-04-27 2022-04-27 ambulatory [facility]LMLC [facility] [id number] Common 00:00:00 00:00:00 [facility] 2022-04-27 2022-04-27 ambulatory [facility]LMLC [facility] [id number] Common 00:00:00 00:00:00 [facility] 2022-04-08 2022-04-08 Outpatient GUU_SHENG_Y MEHOP [facility] 116 357- [place] 10:56:00 10:56:00 [place] [id number] [facility] 2022-04-06 2022-04-06 Outpatient GUU_SHENG_Y PAHOP [facility] 116 [place] 11:51:00 11:51:00 AW [id number] [facility] 2022-03-09 2022-03-09 ambulatory [facility]LMLC ST[facility] [id number] Common 00:00:00 00:00:00 [facility] 2022-03-08 2022-03-08 Orders Doctor SEMAJ 1.2.840.114 [id number] Univers 00:00:00 00:00:00 Only Unassigned, STEFFEN 350.1.13.10 ity of [place] [facility] 4.2.7.2.686 Mumtaz as [id number] [place] [address] Branch 2022-03-04 2022-03-04 Outpatient GUU_SHENG_Y PAHOP [facility] 116 [id number] [place] 11:27:00 11:27:00 AW [id number] [facility] 2022-02-18 2022-02-18 ambulatory [facility]LMLC [facility] [id number] Common 00:00:00 00:00:00 [facility] 2022-02-18 2022-02-18 ambulatory [facility]LMLC [facility] [id number] Common 00:00:00 00:00:00 [facility] 2022-02-18 2022-02-18 ambulatory [facility] [id number] Common 00:00:00 00:00:00 [facility] 2022-02-10 2022-02-10 ambulatory [facility]LMLC [facility] [id number] Common 00:00:00 00:00:00 [facility] 2022-02-05 2022-02-05 ambulatory [facility]C [facility] [id number] Common 00:00:00 00:00:00 [facility] 2022-02-02 2022-02-02 ambulatory [facility]LMLC [facility] [id number] Common 00:00:00 00:00:00 [facility] 2022-01-14 2022-01-14 Outpatient GUU_SHENG_Y MEHOP MEHOP [id number] [place] 03:25:00 03:25:00 [facility] 2022-01-13 2022-01-13 Outpatient GUU_SHENG_Y MEHOP MEHOP 116 [id number] [place] 10:07:00 10:07:00 [facility] 2021-12-22 2021-12-22 Outpatient GUU_SHENG_Y MEHOP MEHOP 116 [id number] [place] 11:02:00 11:02:00 AW [id number] [facility] 2021-12-10 2021-12-10 Outpatient GUU_SHENG_Y MEHOP MEHOP 116 [id number] [place] 11:08:00 11:08:00 [facility] 2021-11-26 2021-11-27 Outpatient nullFlavo MNA [id number] Memoria 15:15:00 05:59:59 r Neurology 03 l Jarvis Baeza 2021-11-26 2021-11-27 Outpatient nullFlavo MNA [id number] Memoria 15:15:00 05:59:59 r Neurology 03 l Jarvis Baeza 2021-11-26 2021-11-26 Outpatient DIANNE Soto [id number] 09:15:00 23:59:59 Abhijeet Davenport 2021-11-26 2021-11-26 Outpatient JA PERES [id number] Memoria 09:15:00 09:15:00 Dedrick Baeza 2021-11-21 2021-11-21 Outpatient GUU_SHENG_Y MEHOP MEHOP [id number] [place] 01:31:00 01:31:00 [facility] 2021-11-17 2021-11-17 [facility] Counsel[facility] Lab, Ang - Db [facility] 1.2.840.1 14 [id number] Univers 10:30:00 10:45:00 Visit Romaine Gary [facility] 350.1.13.10 [facility] 4.2.7.2.686 Mumtaz as PATRICIA?BLEA [id number] [address] MEDICAL OFFICE BUILDING 2021-11-17 2021-11-17 Outpatient R VARUN [facility] [id number] Univers 10:30:00 10:30:00 ROMAINE [facility] 2021-11-17 2021-11-17 Outpatient R [facility] [id number] Univers 10:30:00 10:30:00 [id number] [facility] 2021-11-07 2021-11-07 Outpatient GUU_SHENG_Y MEHOP MEHOP [id number] [place] 09:42:00 09:42:00 [facility] 2021-11-06 2021-11-06 Outpatient GUU_SHENG_Y MEHOP MEHOP [id number] [place] 06:28:00 06:28:00 [facility] 2021-11-05 2021-11-05 ambulatory [facility]LMLC [facility] [id number] Common 00:00:00 00:00:00 [facility] 2021-11-04 2021-11-04 Telephone WAI Pat 1.2.840.114 [id number] Univers 00:00:00 00:00:00 Tiffanie Y HEALTH 350.1.13.10 i ty [facility] 4.2.7.2.686 Mark s [id number] [place] [id number] Branch 2021-10-30 2021-10-30 Hospital [facility] 1.2.840.114 [id number] Univers 12:32:56 23:59:00 Encounter Vasu Pereyra Solomon HEALTH 350.1.13.10 ity of [place] [id number] [facility] 807 Branch 2021-10-30 2021-10-30 Office Marvin Liu 1.2.840. 114 [id number] Univers 11:15:00 12:31:56 Visit Jc Blanchard HEALTH 350.1.13.10 ity of [place] [id number] [facility] 027 Branch 2021-10-30 2021-10-30 Outpatient R OL [facility] [id number] Univers 11:15:00 12:31:56 JC [facility] 2021-10-13 2021-10-13 Outpatient Tavon [facility] [id number] Univers 10:15:00 10:11:02 [facility] 2021-10-08 2021-10-08 Outpatient Tavon [facility] [id number] Univers 10:00:00 11:18:31 [facility] 2021-10-01 2021-10-01 ambulatory [facility]LMLC [facility] [id number] Common 00:00:00 00:00:00 [facility] 2021-09-29 2021-09-29 ambulatory STLMLC ST[facility] [id number] Common 00:00:00 00:00:00 [facility] 2021-09-19 2021-09-19 Outpatient GUU_SHENG_Y [facility] 116 357- [place] 01:51:00 01:51:00 AW [id number] [facility] 2021-09-18 2021-09-18 Outpatient GUU_SHENG_Y [facility] 116 357- [place] 03:47:00 03:47:00 AW [id number] [facility] 2021-09-17 2021-09-17 Outpatient Tavon BUCK [facility] [id number] Univers 09:30:00 10:57:28 [facility] 2021-08-25 2021-08-26 Outpatient nullFlavo MNA [id number] Memoria 15:15:00 05:59:59 r Neurology 02 isidra Baeza 2021-08-25 2021-08-26 Outpatient nullFlavo MNA [id number] Memoria 15:15:00 05:59:59 r Neurology 02 isidra Baeza 2021-08-25 2021-08-25 Outpatient ANNIKA SotoSCHNICANOR MISCHER [id number] 09:15:00 23:59:59 Abhijeet 02 Issac 2021-08-25 2021-08-25 Outpatient MHIE MHIE [id number] Memoria 09:15:00 09:15:00 02 isidra Baeza 2021-07-09 2021-07-09 Ambulatory nullFlavo MNA [id number] Memoria 14:15:00 14:15:00 Pre-Reg r Neurology 01 isidra Baeza 2021-07-09 2021-07-09 Ambulatory nullFlavo MNA [id number] Memoria 14:15:00 14:15:00 Pre-Reg r Neurology 01 isidra Baeza 2021-07-09 2021-07-09 Outpatient MHIE MHIE [id number] Memoria 09:15:00 09:15:00 01 isidra Baeza 2021-07-09 2021-07-09 Out[id number] 09:15:00 09:15:00 Abhijeet 01 Issac 2021-07-09 2021-07-09 Out[facility] [id number] Common 00:00:00 00:00:00 [facility] 2021-07-02 2021-07-02 Outpatient GUU_SHENG_Y MEHOP MEHOP [id number] [place] 11:34:00 11:34:00 AW [id number] [facility] 2021-06-30 2021-06-30 Out[facility] [id number] Common 00:00:00 00:00:00 [facility] 2021-06-25 2021-06-25 Outpatient GUU_SHENG_Y MEHOP MEHOP [id number] [place] 10:44:00 10:44:00 AW [id number] [facility] 2021-06-23 2021-06-23 Outpatient GUU_SHENG_Y MEHOP MEHOP [id number] [place] 03:14:00 03:14:00 AW [id number] [facility] 2021-06-06 2021-06-06 Outpatient [facility] ST[facility] [id number] Common 00:00:00 00:00:00 [facility] 2021-05-23 2021-05-24 Outpatient nullFlavo MNA [id number] Memoria 20:15:00 04:59:59 r Neurology 00 l Straffordcharlene Baeza 2021-05-23 2021-05-24 Outpatient nullFlavo MNA [id number] Memoria 20:15:00 04:59:59 r Neurology 00 l Jarvis Martinann 2021-05-23 2021-05-23 Outpatient [facility] [id number] 15:15:00 23:59:59 Abhijeet 00 Issac 2021-05-23 2021-05-23 Out[facility] [id number] 15:15:00 00 l Aryan 2021-05-23 2021-05-23 Outpatient GUU_SHENG_Y MEHOP PAHOP [id number] [place] 02:20:00 02:20:00 AW [id number] [facility] 2021-05-21 2021-05-21 Outpatient GUU_SHENG_Y MEHOP MEHOP [id number] [place] 10:55:00 10:55:00 AW [id number] [facility] 2021-05-05 2021-05-05 Outpatient [facility] [id number] Common 00:00:00 00:00:00 [facility] 2021-04-22 2021-04-22 Outpatient [facility]C [facility] [id number] Common 00:00:00 00:00:00 [facility] 2021-03-21 2021-03-21 Outpatient STLMLC [facility] [id number] Common 00:00:00 00:00:00 [facility] Results This patient has no known results.
[2022-06-09] MEDS ORDERED: NA CHLORIDE 0.9% 500 ML ONE (06:21)
[2022-06-09] MEDS ORDERED: MORPHINE 2 MG/ML SYR ONE (06:21)
[2022-06-09] MEDS ORDERED: ONDANSETRON 4 MG/2 ML VIAL ONE (06:21)
[2022-06-09] MEDS ORDERED: KETOROLAC 30 MG/ML INJ ONE (06:21)
[2022-06-09] MEDS ORDERED: FENTANYL 25 MCG/PATCH TD ONE (06:21)
[2022-06-09] MEDS ORDERED: LIDOCAINE 1% W/EPI 1:100,000 MDV 50 ML VIAL ONE (06:22)
--- NOTE | 2022-06-09 06:32 | RAD REPORT ---
EXAM DESCRIPTION: RAD - Shoulder Left 2 View - 06/09/2022 6:09 am CLINICAL HISTORY: Pain COMPARISON: Shoulder Left Wo Cont dated 05/13/2022 TECHNIQUE: Internal and external rotation views of the left shoulder were obtained. FINDINGS: There is no fracture or dislocation. Acromiohumeral joint space is effaced and the glenohu meral joint space is significantly narrowed. There has been remodeling of the undersurface of the acr omion. These findings are usually associated with chronic rotator cuff tear in addition to degenerati ve joint disease. Superior and inferiorly directed spurs are seen at the head of the clavicle. No abnormal soft tissue calcifications seen. There is fullness of the soft tissues around the shoulde r joint. Patient has known joint abnormality pending further biopsy. IMPRESSION: Advanced shoulder joint degenerative change as detailed. Prominent soft tissues seen around the shoulder joint related to known joint capsule abnormality deta iled on recent MRI.
[2022-06-09 06:59] LABS: Hematocrit 35.7 % (39.6-49.0); Lymphocytes % 19.7 % (15.3-44.8); MCV 80.6 fL (80-100); RBC Red Blood Cell Count 4.42 M/uL (4.33-5.43)
[2022-06-09 07:09] LABS: Albumin 3.2 g/dL (3.4-5.0); Bilirubin Total 0.5 mg/dL (0.2-1.0); Protein, Total 7.2 g/dL (6.4-8.2)
--- NOTE | 2022-06-09 07:10 | ER ---
Nurse's Notes [facility] Name: Jose Ny Age: 61 yrs Sex: Male : 1960 Arrival Date: 06/09/2022 Time: 05:25 Bed 8 Private MD: Diagnosis: Pain in left shoulder-, EFFUSION;Villonodular synovitis (pigmented), left shoulder Presentation: 06/09 05:36 Chief complaint: Sister reports " We have been seeing someone for his shoulder, Dr. aayush Daniel, but he just said the pain in his shoulder is so bad that he cannot stand it. He is suppose to have an biopsy but the pain medication he was given isn't working for him.". Coronavirus screen: Vaccine status: Patient reports being unvaccinated. Ebola Screen: Patient negative for fever greater than or equal to 101.5 degrees Fahrenheit, and additional compatible Ebola Virus Disease symptoms Patient denies exposure to infectious person. Patient denies travel to an Ebola-affected area in the 21 days before illness onset. Initial Sepsis Screen: Does the patient meet any 2 criteria? No. Patient's initial sepsis screen is negative. Does the patient have a suspected source of infection? No. Patient's initial sepsis screen is negative. Risk Assessment: Do you want to hurt yourself or someone else? Patient reports no desire to harm self or others. Onset of symptoms is unknown. 05:36 Method Of Arrival: Ambulatory tw5 05:36 Acuity: DREAD 4 tw5 Triage Assessment: 05:38 General: Appears uncomfortable, Behavior is cooperative, appropriate for age. Pain: tw5 Complains of pain in anterior aspect of left shoulder Pain currently is 10 out of 10 on a pain scale. Historical: - Allergies: 05:38 No Known Allergies; tw5 - Home Meds: 05:38 meloxicam 7.5 mg oral TbDi 1 tab once daily [Active]; simvastatin 10 mg Oral tab 1 tab tw5 once daily [Active]; aspirin 81 mg Oral cap 1 cap once daily [Active]; - PMHx: 05:38 CVA; Hypercholesterolemia; Vertigo; tw5 - Immunization history:: Flu vaccine is not up to date. - Social history:: Smoking status: Patient denies any tobacco usage or history of. - Family history:: not pertinent. Screenin:42 Abuse screen: Denies threats or abuse. Denies injuries from another. Nutritional as6 screening: No deficits noted. Tuberculosis screening: No symptoms or risk factors identified. Fall Risk None identified. Assessment: 06:41 General: Appears uncomfortable, Behavior is calm, cooperative, flat. Pain: Complains of as6 pain in left shoulder and left arm and anterior aspect of left shoulder. Neuro: Level of Consciousness is awake, alert. Respiratory: Respiratory effort is even, unlabored. Musculoskeletal: Swelling present in left shoulder and anterior aspect of left shoulder. 07:00 Reassessment: RECD REPORT FROM PHILIPPE KINGSTON. 61YO WM P/W LEFT SHOULDER PAIN. bp 08:02 Reassessment: D/C HOME VIA W/C. bp Vital Signs: 05:36 BP 152 / 63; Pulse 18; Resp 18; Temp 98.4; Pulse Ox 98% on R/A; Weight 70.76 kg; Height tw5 5 ft. 8 in. (172.72 cm); Pain 10/10; 06:53 BP 166 / 86; Pulse 89; Resp 17 S; Pulse Ox 97% on R/A; as6 08:02 BP 131 / 78; Pulse 58; Resp 16; Pulse Ox 98% ; bp 05:36 Body Mass Index 23.72 (70.76 kg, 172.72 cm) tw5 ED Course: 05:25 Patient arrived in ED. ja2 05:38 Triage completed. tw5 05:38 Arm band placed on. tw5 05:39 Luis Dickson MD is Attending Physician. kaylynn 06:08 Philippe Magallanes, RN is Primary Nurse. as6 06:11 Shoulder Left (2 View) XRAY In Process Unspecified. EDMS 06:40 Inserted saline lock: 22 gauge in right forearm, using aseptic technique. Blood as6 collected. 06:42 Bed in low position. Call light in reach. as6 06:54 Assist provider with aspiration of left shoulder using 18 gauge needle, Lidocaine, as6 fluid removed was cloudy, Specimen sent to lab. Removed 15 ml's of fluid Set up for procedure. Performed by Luis Dickson MD Dressed with band aid, Patient tolerated well. 07:09 Kirk Hernandez MD is Referral Physician. kaylynn 08:02 IV discontinued, intact, bleeding controlled, No redness/swelling at site. Pressure bp dressing applied. Administered Medications: 06:40 Drug: NS 0.9% 500 ml Route: IV; Rate: bolus; Site: right forearm; as6 08:02 Follow up: IV Status: Completed infusion; IV Intake: 500ml bp 06:40 Drug: Ketorolac 30 mg Route: IVP; Site: right forearm; as6 08:01 Follow up: Response: Pain is decreased bp 06:40 Drug: morphine 2 mg Route: IVP; Infused Over: 4 mins; Site: right forearm; as6 08:01 Follow up: Response: Pain is decreased bp 06:41 Drug: Zofran (Ondansetron) 4 mg Route: IVP; Site: right forearm; as6 08:01 Follow up: Response: No adverse reaction bp 06:41 Drug: fentaNYL Patch (50 mcg/hr) 1 patches Route: Transdermal; Site: affected area; as6 08:02 Not Given (Other Intervention Used): morphine 2 mg IVP once over 4 mins bp Medication: 08:02 VIS not applicable for this client. bp Intake: 08:02 IV: 500ml; Total: 500ml. bp Outcome: 07:09 Discharge ordered by . kaylynn 08:02 Discharged to home via wheelchair, with family. bp 08:02 Condition: stable 08:02 Discharge instructions given to patient, Instructed on discharge instructions, follow up and referral plans. medication usage, Demonstrated understanding of instructions, follow-up care, medications, Prescriptions given X 2. 08:04 Patient left the ED. bp Signatures: Dispatcher [employer] Luis Martinez MD MD cha Peltier, Brian, RN RN Sandee Espinoza Tiffany tw Philippe Magallanes RN RN as6
--- NOTE | 2022-06-09 07:11 | EDPHYS ---
Physician Documentation [facility] Name: Jose Ny Age: 61 yrs Sex: Male : 1960 Arrival Date: 06/09/2022 Time: 05:25 Bed 8 Private MD: ALFONSO Physician Luis Dickson HPI: 06/09 06:08 This 61 yrs old Male presents to ER via Ambulatory with complaints of kaylynn Shoulder Pain. 06:08 The patient or guardian complains of decreased range of motion, pain. left shoulder. kaylynn Context: The problem was sustained at an unknown site. Onset: The symptoms/episode began/occurred 1 week(s) ago. Modifying factors: the symptoms are alleviated by remaining still, The symptoms are aggravated by lifting weight, movement, rotation of arm. Associated signs and symptoms: The patient has no apparent associated signs or symptoms. Severity of symptoms: At their worst the symptoms were mild, moderate, in the emergency department the symptoms have improved. Treatment prior to arrival includes: no previous treatment. The patient has experienced a previous episode, approximately 2 years ago. Historical: - Allergies: 05:38 No Known Allergies; tw5 - Home Meds: 05:38 meloxicam 7.5 mg oral TbDi 1 tab once daily [Active]; simvastatin 10 mg Oral tab 1 tab tw5 once daily [Active]; aspirin 81 mg Oral cap 1 cap once daily [Active]; - PMHx: 05:38 CVA; Hypercholesterolemia; Vertigo; tw5 - Immunization history:: Flu vaccine is not up to date. - Social history:: Smoking status: Patient denies any tobacco usage or history of. - Family history:: not pertinent. ROS: 06:08 Constitutional: Negative for fever, chills, and weight loss, Eyes: Negative for injury, kaylynn pain, redness, and discharge, ENT: Negative for injury, pain, and discharge, Neck: Negative for injury, pain, and swelling, Cardiovascular: Negative for chest pain, palpitations, and edema, Respiratory: Negative for shortness of breath, cough, wheezing, and pleuritic chest pain, Abdomen/GI: Negative for abdominal pain, nausea, vomiting, diarrhea, and constipation, Back: Negative for injury and pain, : Negative for injury, bleeding, discharge, and swelling, Skin: Negative for injury, rash, and discoloration, Neuro: Negative for headache, weakness, numbness, tingling, and seizure, Psych: Negative for depression, anxiety, suicide ideation, homicidal ideation, and hallucinations, Allergy/Immunology: Negative for hives, rash, and allergies, Endocrine: Negative for neck swelling, polydipsia, polyuria, polyphagia, and marked weight changes. 06:08 MS/extremity: Positive for decreased range of motion, pain, swelling, tenderness. Exam: 06:08 Constitutional: This is a well developed, well nourished patient who is awake, alert, kaylynn and in no acute distress. Head/Face: Normocephalic, atraumatic. Eyes: Pupils equal round and reactive to light, extra-ocular motions intact. Lids and lashes normal. Conjunctiva and sclera are non-icteric and not injected. Cornea within normal limits. Periorbital areas with no swelling, redness, or edema. ENT: Nares patent. No nasal discharge, no septal abnormalities noted. Tympanic membranes are normal and external auditory canals are clear. Oropharynx with no redness, swelling, or masses, exudates, or evidence of obstruction, uvula midline. Mucous membranes moist. Neck: Trachea midline, no thyromegaly or masses palpated, and no cervical lymphadenopathy. Supple, full range of motion without nuchal rigidity, or vertebral point tenderness. No Meningismus. Chest/axilla: Normal chest wall appearance and motion. Nontender with no deformity. No lesions are appreciated. Cardiovascular: Regular rate and rhythm with a normal S1 and S2. No gallops, murmurs, or rubs. Normal PMI, no JVD. No pulse deficits. Respiratory: Lungs have equal breath sounds bilaterally, clear to auscultation and percussion. No rales, rhonchi or wheezes noted. No increased work of breathing, no retractions or nasal flaring. Abdomen/GI: Soft, non-tender, with normal bowel sounds. No distension or tympany. No guarding or rebound. No evidence of tenderness throughout. Back: No spinal tenderness. No costovertebral tenderness. Full range of motion. Male : Normal genitalia with no discharge or lesions. Skin: Warm, dry with normal turgor. Normal color with no rashes, no lesions, and no evidence of cellulitis. Neuro: Awake and alert, GCS 15, oriented to person, place, time, and situation. Cranial nerves II-XII grossly intact. Motor strength 5/5 in all extremities. Sensory grossly intact. Cerebellar exam normal. Normal gait. Psych: Awake, alert, with orientation to person, place and time. Behavior, mood, and affect are within normal limits. 06:08 Musculoskeletal/extremity: ROM: limited active range of motion, limited passive range of motion, Circulation is intact in all extremities. Sensation intact. Compartment Syndrome exam of affected extremity: is normal. Vital Signs: 05:36 BP 152 / 63; Pulse 18; Resp 18; Temp 98.4; Pulse Ox 98% on R/A; Weight 70.76 kg; Height tw5 5 ft. 8 in. (172.72 cm); Pain 10/10; 06:53 BP 166 / 86; Pulse 89; Resp 17 S; Pulse Ox 97% on R/A; as6 08:02 BP 131 / 78; Pulse 58; Resp 16; Pulse Ox 98% ; bp 05:36 Body Mass Index 23.72 (70.76 kg, 172.72 cm) tw5 Procedures: 06:08 Joint Treatment: Aspiration of left shoulder. kaylynn 07:02 Joint Treatment: using 18 gauge needle, Lidocaine, Removed cloudy fluid, bloody fluid, kaylynn Specimen sent to lab. Dressed with band aid, 4x4s, Patient tolerated well. MDM: 05:39 Patient medically screened. kaylynn 06:18 Differential diagnosis: humeral head fracture, glenoid fracture, DJD, tendonitis. Data kaylynn reviewed: vital signs, nurses notes, lab test result(s), radiologic studies, plain films. Data interpreted: athletic monitor: rate is 81 beats/min. Counseling: I had a detailed discussion with the patient and/or guardian regarding: the historical points, exam findings, and any diagnostic results supporting the discharge/admit diagnosis, lab results, radiology results, the need for outpatient follow up. 06/09 05:58 Order name: CBC with Diff; Complete Time: 07:03 kaylynn 06/09 05:58 Order name: Comprehensive Metabolic Panel; Complete Time: 07:13 kaylynn 06/09 05:58 Order name: Shoulder Left (2 View) XRAY; Complete Time: 07:03 kaylynn 06/09 07:19 Order name: Body Fluid Cell Count EDMS 06/09 05:58 Order name: Misc. Order: SUTURE SET UP , 30 CC SYRINGES; Complete Time: 06:40 [facility] [place] 06/09 06:06 Order name: Sling; Complete Time: 08:01 [facility] [place] 06/09 07:19 Order name: Cytology Orders EDMS Administered Medications: 06:40 Drug: NS 0.9% 500 ml Route: IV; Rate: bolus; Site: right forearm; as6 08:02 Follow up: IV Status: Completed infusion; IV Intake: 500ml bp 06:40 Drug: Ketorolac 30 mg Route: IVP; Site: right forearm; as6 08:01 Follow up: Response: Pain is decreased bp 06:40 Drug: morphine 2 mg Route: IVP; Infused Over: 4 mins; Site: right forearm; as6 08:01 Follow up: Response: Pain is decreased bp 06:41 Drug: Zofran (Ondansetron) 4 mg Route: IVP; Site: right forearm; as6 08:01 Follow up: Response: No adverse reaction bp 06:41 Drug: fentaNYL Patch (50 mcg/hr) 1 patches Route: Transdermal; Site: affected area; as6 08:02 Not Given (Other Intervention Used): morphine 2 mg IVP once over 4 mins bp Disposition Summary: 06/09/22 07:09 Discharge Ordered Location: Home kaylynn Problem: new kaylynn Symptoms: have improved kaylynn Condition: Stable kaylynn Diagnosis - Pain in left shoulder - , EFFUSION kaylynn - Villonodular synovitis (pigmented), left shoulder kaylynn Followup: kaylynn - With: Private Physician - When: 2 - 3 days - Reason: Recheck today's complaints, Continuance of care, Re-evaluation by your physician Followup: kaylynn - With: - When: 2 - 3 days - Reason: Recheck today's complaints, Continuance of care, Re-evaluation by your physician Discharge Instructions: - Discharge Summary Sheet kaylynn - Joint Pain kaylynn - Musculoskeletal Pain kaylynn - Shoulder Pain kaylynn - Shoulder Pain, Post-yd-Nugi kaylynn Forms: - Medication Reconciliation Form kaylynn - Thank You Letter kaylynn - Antibiotic Education kaylynn - Prescription Opioid Use kaylynn Prescriptions: - Diclofenac Sodium 75 mg Oral tablet,delayed release (DR/EC) - take 1 tablet by ORAL route 2 times per day; 20 tablet; Refills: 0, Product kaylynn Selection Permitted - Tylenol-Codeine #3 300 mg-30 mg Oral - take 1 tablet by ORAL route every 4 hours; 20 tablet; Refills: 0, Product kaylynn Selection Permitted Signatures: Dispatcher [employer] Luis Martinez MD MD cha Wood, Tiffany tw5 Philippe Magallanes RN RN as6 Elroy Brown RN bp
[2022-06-09 09:48] VITALS: TEMP 98.4
[2022-06-09 09:52] VITALS: BP 131/78; O2SAT 98
[2022-06-09 14:26] LABS: Body Fluid Source OTHER
[2022-06-09 14:27] LABS: Appearance TURBID (CLEAR); Body Fluid WBC 22717 /mm^3; Color of fluid Pink (COLORLESS)
== END 2022-06-09 08:04 | disposition home or self-care (01) ==
LOC: ER 05:18
PROC: 0R9K3ZX Drainage of Left Shoulder Joint, Percutaneous Approach, Diagnostic (ICD-10-PCS; principal; 2022-06-09)
DX: M12.212 Villonodular synovitis (pigmented), left shoulder (principal); E78.00 Pure hypercholesterolemia, unspecified; Z86.73 Personal history of transient ischemic attack (TIA), and cerebral infarction without residual deficits
CPT/HCPCS: 85025; 36415; 88108; 89050; 88305; 80053; 73030; 20610; J2270; J7040; J2405; 96361; 96374; 96375; 99284

== ENCOUNTER 2022-06-11 08:25 | Observation (INO) | payer OTHER ==
--- OUTSIDE RECORDS SUMMARY | 2022-06-11 08:28 | XMS REPORT | Continuity of Care Document ---
:1960 Author Organization [facility] t Address [address] [place] [address] Care Team Providers Name Role Phone Juan Carlos Adams DO Nathan Primary Care Physician [phone] Juan Carlos Adams Attending Clinician Unavailable Mali Daniel MD Attending Clinician [phone] Abhijeet Soto Attending Clinician GUU_SHENG_YAW Attending Clinician Unavailable Doctor Unassigned, [place] Attending Clinician Unavailable Lab, Ang - Db [...] Number Effective Date Expiration Date S ource [facility] [id number] 2021 [employer] [place] 00:00:00 (MEDICAID HMO) [...] Active Univers ALLERGIE Class ity of S [facility] Social History Social Habit Start Date Stop Date Quantity Comments Source Exposure to Not sure [facility] SARS-CoV-2 (event) [facility] Social History 2021-05-23 2021-05-23 [facility] 20:00:59 20:00:59 Sex Ass[birth year] At [birth year] [facility] 00:00:00 00:00:00 Smoking Status Start Date Stop Date Source Tobacco smoking consumption unknown [facility] Medications Ordered Filled Start Stop Current Ordering Indication Dosage Frequency Signature Comments Components Source Medication Medication Date Date Medication? Clinician (SIG) Name Name meloxicam 2022- Yes 7.5mg QD Take 1 Meth omaira (Mobic) 7.5 06-[address] mg tablet 00:00: 04:59 (7.5 mg [facility] 00 :00 total) by l mouth daily. meloxicam 2022- Yes 7.5mg QD Take 1 Meth omaira (Mobic) 7.5 8-29 08-[address] mg tablet 00:00: 04:59 (7.5 mg [facility] 00 :00 total) by l mouth daily. simvastatin 0 Yes 10mg QD Take 1 Meth omaira (ZOCOR) 10 8-12 tablet (10 st MG tablet 00:00: mg total) Hos ro 00 by mouth l every evening. simvastatin 0 Yes 10mg QD Take 1 Meth omaira (ZOCOR) 10 8-12 tablet (10 st MG tablet 00:00: mg total) Hos ro 00 by mouth l every evening. simvastatin 0 Yes TAKE 1 Jairo sreedhar 10 mg oral 2-23 TABLET BY l tablet 15:28: MOUTH Aryan 00 EVERY DAY IN THE EVENING simvastatin 2021-0 Yes TAKE 1 Jairo sreedhar 10 mg oral 2-23 TABLET BY l tablet 15:28: MOUTH Ravena 00 EVERY DAY IN THE EVENING mometasone 2020- Yes [id number] Apply to Univers 0.1 % 2-15 area(s) 2 ity of lotion 00:00: (two) [place] 00 times Medical daily. Branch Avoid face, armpits, and groin. clobetasoL 2020- Yes [id number] Apply to Univers 0.05 % 2-15 area(s) 2 ity of cream 00:00: (two) [place] 00 times Medical daily. Branch mometasone 2020-10 Yes [id number] Apply to Univers 0.1 % 2-15 area(s) 2 ity of lotion 00:00: (two) [place] 00 times Medical daily. Branch Avoid face, armpits, and groin. clobetasoL 2020- Yes [id number] Apply to Univers 0.05 % 2-15 area(s) 2 ity of cream 00:00: (two) [place] 00 times Medical daily. Branch mometasone 2020- Yes [id number] Apply to Univers 0.1 % 2-15 area(s) 2 ity of lotion 00:00: (two) [place] 00 times Medical daily. Branch Avoid face, armpits, and groin. clobetasoL 2020- Yes [id number] Apply to Univers 0.05 % 2-15 area(s) 2 ity of cream 00:00: (two) [place] 00 times Medical daily. Branch mometasone 2020-10 Yes [id number] Apply to Univers 0.1 % 2-15 area(s) 2 ity of lotion 00:00: (two) [place] 00 times Medical daily. Branch Avoid face, armpits, and groin. clobetasoL 2020-10 Yes [id number] Apply to Univers 0.05 % 2-15 area(s) 2 ity of cream 00:00: (two) [place] 00 times Medical daily. Branch mometasone 2020-10 Yes [id number] Apply to Univers 0.1 % 2-15 area(s) 2 ity of lotion 00:00: (two) [place] 00 times Medical daily. Branch Avoid face, armpits, and groin. clobetasoL 2020-10 Yes [id number] Apply to Univers 0.05 % 2-15 area(s) 2 ity of cream 00:00: (two) [place] 00 times Medical daily. Branch mometasone 2020-10 Yes [id number] Apply to Univers 0.1 % 2-15 area(s) 2 ity of lotion 00:00: (two) [place] 00 times Medical daily. Branch Avoid face, armpits, and groin. clobetasoL 2020-10 Yes [id number] Apply to Univers 0.05 % 2-15 area(s) 2 ity of cream 00:00: (two) [place] 00 times Medical daily. Branch meclizine 2020-10 [...] [Lipitor] 00 30 tab, 2 Refill(s), Pharmacy: [facility] ST[facility] #[id number], 165.1, cm, 05/23/21 14:27:00 CDT, Height, 75.455, kg, 05/23/21 14:27:00 CDT, Weight atorvastati Yes 20 mg = 1 M emoria n 20 MG 8-20 tab, PO, l Oral Tablet 20:17: Bedtime, # Ravena [Lipitor] 00 30 tab, 2 Refill(s), Pharmacy: [facility] STORE #[id number], 165.1, cm, 05/23/21 14:27:00 CDT, Height, 75.455, kg, 05/23/21 14:27:00 CDT, Weight Aspirin 81 Yes 81 mg = 1 Me moria MG Delayed 8-20 tab, PO, l Release 19:47: Daily, 0 Krishna n Oral Tablet 00 Refill(s) [Aspi-Cor] Aspirin 81 Yes 81 mg = 1 Me moria MG Delayed 8-20 tab, PO, l Release 19:47: Daily, 0 Krishna n Oral Tablet 00 Refill(s) [Aspi-Cor] Vital Signs Vital Name Observation Time Observation Value Comments Source Systolic (mm Hg) 2022-05-27 14:11:00 Jairo rial Ravena Diastolic (mm Hg) 2022-05-27 14:11:00 Mem orial Aryan Heart Rate 2022-05-27 14:11:00 [facility] Respitory Rate 2022-05-27 14:11:00 Memori al Aryan Weight 2022-05-27 14:11:00 [facility] Systolic (mm Hg) 2021-11-26 15:18:00 Jairo rial Aryan Diastolic (mm Hg) 2021-11-26 15:18:00 Mem orial Aryan Heart Rate 2021-11-26 15:18:00 [facility] Respitory Rate 2021-11-26 15:18:00 Memori al [place]ena Height 2021-11-26 15:18:00 167.64 cm [facility] Weight 2021-11-26 15:18:00 [facility] BMI Calculated 2021-11-26 15:18:00 Memori al [place]ena Systolic (mm Hg) 2021-08-25 15:12:00 Jairo rial [place]ena Diastolic (mm Hg) 2021-08-25 15:12:00 Mem orial A[facility] Heart Rate 2021-08-25 15:12:00 [facility] Respitory Rate 2021-08-25 15:12:00 Memori al [place] Height 2021-08-25 15:12:00 160.02 cm [facility] Weight 2021-08-25 15:12:00 [facility] BMI Calculated 2021-08-25 15:12:00 Memori al [place]ena Systolic (mm Hg) 2021-05-23 19:27:00 Jairo rial Aryan Diastolic (mm Hg) 2021-05-23 19:27:00 Mem orial [facility] Heart Rate 2021-05-23 19:27:00 [facility] Respitory Rate 2021-05-23 19:27:00 Memori al [place] Height 2021-05-23 19:27:00 165.1 cm [facility] Weight 2021-05-23 19:27:00 [facility] BMI Calculated 2021-05-23 19:27:00 Memori al [facility] Procedures Procedure Date / Time Performing Clinician Source Performed COMPREHENSIVE METABOLIC 2022-06-01 17:22:00 [facility] PANEL [place] HC COMPLETE BLD COUNT 2022-06-01 17:22:00 [facility] W/AUTO DIFF [place] ESTIMATED GFR 2022-06-01 17:22:00 [facility] Y[place] PARTIAL THROMBOPLASTIN 2022-06-01 17:22:00 [facility] TIME (PTT) Ysabel PROTHROMBIN TIME WITH INR 2022-06-01 17:22:00 [facility] Ysabel MRI UPPER EXTREMITY 2022-05-13 21:04:54 [facility] EXTERNAL STUDY Ysabel AUTHORIZATION FOR RELEASE 2022-03-08 05:01:00 Doctor Unassigned, [facility] [place] [facility] XR SHOULDER 2+ VW LEFT 2021-10-30 18:57:00 Tiffanie Pat [facility] Plan of Care Planned Activity Planned Date Details Comments Source Future Scheduled 2022-06-11 HEPATITIS B VACCINES [facility] Test 08:27:28 (1 of 3 - 3-dose series) [code = HEPATITIS B VACCINES (1 of 3 - 3-dose series)] Future Scheduled 2022-06-11 COVID-19 VACCINE (#1) [facility] Test 08:27:28 [code = COVID-19 VACCINE (#1)] Future Scheduled 2022-06-11 Hepatitis C screening [facility] Test 08:27:28 (procedure) [code = 690980165] Future Scheduled 2022-06-11 COLONOSCOPY SCREENING [facility] Test 08:27:28 [code = COLONOSCOPY SCREENING] Future Scheduled 2022-06-11 SHINGLES VACCINES (1 Met [facility] Test 08:27:28 of 2) [code = SHINGLES VACCINES (1 of 2)] Future Scheduled 2022-06-11 INFLUENZA VACCINE [facility] Test 08:27:28 [code = INFLUENZA VACCINE] Future Scheduled 2022-06-05 HEPATITIS B VACCINES [facility] Test 15:03:14 (1 of 3 - 3-dose series) [code = HEPATITIS B VACCINES (1 of 3 - 3-dose series)] Future Scheduled 2022-06-05 COVID-19 VACCINE (#1) [facility] Test 15:03:14 [code = COVID-19 VACCINE (#1)] Future Scheduled 2022-06-05 Hepatitis C screening [facility] Test 15:03:14 (procedure) [code = 389091696] Future Scheduled 2022-06-05 COLONOSCOPY SCREENING [facility] Test 15:03:14 [code = COLONOSCOPY SCREENING] Future Scheduled 2022-06-05 SHINGLES VACCINES (1 [facility] Test 15:03:14 of 2) [code = SHINGLES VACCINES (1 of 2)] Future Scheduled 2022-06-05 INFLUENZA VACCINE [facility] Test 15:03:14 [code = INFLUENZA VACCINE] Encounters Start End Encounter Admission Attending Care Care Encounter Source Date/Time Date/Time Type Type Clinicians Facility Department ID 2022-05-19 Outpatient Bryan [facility] [id number] Common 14:17:02 [facility] [id number] [facility] 2022-05-07 Outpatient Adams, [facility] [id number] Common 10:23:02 Juan Carlos [facility] 2022-03-10 Outpatient Adams, [facility] [id number] Common 12:11:00 Juan Carlos [facility] 2022-03-09 Outpatient Adams, [facility] [id number] Common 14:45:01 Juan Carlos [facility] 2022-02-09 Outpatient Adams, [facility] [id number] Common 08:24:02 Juan Carlos [facility] 2021-12-18 Outpatient Adams, [facility] [id number] Common 09:55:02 Juan Carlos [facility] 2021-10-29 Outpatient Adams, [facility] [id number] Common 13:48:11 Juan Carlos 05417 [facility] 2021-10-29 Outpatient Adams, [facility] [id number] Common 13:47:27 Juan Carlos [id number] [facility] 2021-10-29 Outpatient Adams, [facility] Common 13:45:51 Juan Carlos [id number] [facility] 2021-10-29 Outpatient Adams, [facility] Common 13:28:02 Juan Carlos [id number] [facility] 2021-10-29 Outpatient Adams, [facility] Common 13:27:44 Juan Carlos [id number] [facility] 2021-10-29 Outpatient Adams, [facility] Common 13:16:51 Juan Carlos 82725 [facility] 2021-10-29 Outpatient Adasm, [facility] [id number] Common 13:16:31 Juan Carlos [id number] [facility] 2022-09-02 2022-09-02 Outpatient MHIE JA [id number] Memoria 09:00:00 09:00:00 05 isidra Baeza 2022-09-02 2022-09-02 [id number] Memoria 09:00:00 09:00:00 05 l Aryan 2022-06-01 2022-06-01 [facility], 1.2.840.1 [id number] Methodi 11:13:39 23:59:00 Encounter [place] [address]94.1.[address] Ysabel 3.430.2.7 Hospit a .3.968960 l .8 2022-06-01 2022-06-01 [facility], 1.2.840.1 [id number] 21 [id number] Methodi 10:45:00 12:57:37 Visit [place] 41228.1.[address] [place] 3.430.2.7 Hospit a .3.856238 l .8 2022-06-01 2022-06-01 [facility], 1.2.840.1 [id number] 21 [id number] Methodi 10:45:00 12:57:37 Visit [place] [address]220.1.[address] [place] 3.430.2.7 Hospit a .3.717105 l .8 2022-06-01 2022-06-01 [facility], 1.2.840.1 [id number] 21 [id number] Methodi 12:05:00 12:10:[address] [place] 3.430.2.7 Hospit a .3.760274 l .8 2022-06-01 2022-06-01 [facility], 1.2.840.1 [id number] 21 [id number] Methodi 12:05:00 12:10:[address] [place] 3.430.2.7 Hospit a .3.633793 l .8 2022-06-01 2022-06-01 Travel 1.2.840.1 1.2.165.990 8596 [id number] Methodi 00:00:00 00:00:[address] 3.430.2.7 0.2.7.3.698 Ho spita .3.650514 084.8 l .8 2022-06-01 2022-06-01 [facility], 1.2.840.1 [id number] 21 [id number] Methodi 00:00:00 00:00:00 Only [place] [address]377.1.[address] [place] 3.430.2.7 Hospit a .3.984107 l .8 2022-06-01 2022-06-01 [facility], 1.2.840.1 [id number] 21 [id number] Methodi 00:00:00 00:00:00 Only [place] 09522.1.[address] [place] 3.430.2.7 Hospit a .3.314117 l .8 2022-06-01 2022-06-01 [facility], 1.2.840.1 [id number] [id number] [facility] 00:00:00 00:00:00 Encounter MALI 59370.1.[address] .3.342679 .8 2022-06-01 2022-06-01 Travel 1.2.840.1 1.2.634.094 8005 [id number] Methodi 00:00:00 00:00:[address] 3.430.2.7 0.2.7.3.698 Ho spita .3.833653 084.8 l .8 2022-05-27 2022-05-28 Outpatient nullFlavo MNA [id number] Memoria 14:00:00 04:59:59 r Neurology 04 l Jarvis Baeza 2022-05-27 2022-05-28 Outpatient nullFlavo MNA [id number] Memoria 14:00:00 04:59:59 r Neurology 04 l Jarvis Baeza 2022-05-27 2022-05-27 Outpatient DIANNE Soto [id number] 09:00:00 23:59:59 Abhijeet Rolando Davenport 2022-05-27 2022-05-27 Outpatient JA PERES [id number] Memoria 09:00:00 09:00:00 Rolando Baeza 2022-05-27 2022-05-27 ambulatory STLMLC STLMLC [id number] Common 00:00:00 00:00:00 [facility] 2022-05-25 2022-05-25 ambulatory STLMLC STLMLC [id number] Common 00:00:00 00:00:00 [facility] 2022-05-22 2022-05-22 Outpatient GUU_SHENG_Y [facility] 116 [id number] [place] 00:00:00 00:00:00 AW da [facility] 2022-05-21 2022-05-21 Outpatient GUU_SHENG_Y [facility] 116 357- [place] 00:00:00 00:00:00 AW da [facility] 2022-05-21 2022-05-21 Travel 1.2.840.1 1.2.435.503 5314 [id number] Methodi 00:00:00 00:00:[address] 3.430.2.7 0.2.7.3.698 Ho spita .3.082972 084.8 l .8 2022-05-21 2022-05-21 Travel 1.2.840.1 1.2.936.582 9400 [id number] Methodi 00:00:00 00:00:[address] 3.430.2.7 0.2.7.3.698 Ho spita .3.453166 084.8 l .8 2022-05-21 2022-05-21 ambulatory STLMLC STLMLC [id number] Common 00:00:00 00:00:00 [facility] 2022-05-20 2022-05-20 ambulatory STLMLC STLMLC [id number] Common 00:00:00 00:00:00 [facility] 2022-05-19 2022-05-19 ambulatory STLMLC STLMLC [id number] Common 00:00:00 00:00:00 [facility] 2022-05-12 2022-05-12 Outpatient GUU_SHENG_Y [facility] [id number] [place] 00:00:00 00:00:00 [place] [id number] [facility] 2022-05-11 2022-05-11 ambulatory STLMLC STLMLC [id number] Common 00:00:00 00:00:00 [facility] 2022-05-08 2022-05-08 ambulatory STLMLC STLMLC [id number] Common 00:00:00 00:00:00 [facility] 2022-05-05 2022-05-05 ambulatory STLMLC STLMLC [id number] Common 00:00:00 00:00:00 [facility] 2022-04-29 2022-04-29 ambulatory STLMLC STLMLC [id number] Common 00:00:00 00:00:00 [facility] 2022-04-27 2022-04-27 ambulatory STLMLC STLMLC [id number] Common 00:00:00 00:00:00 [facility] 2022-04-27 2022-04-27 ambulatory STLMLC STLMLC [id number] Common 00:00:00 00:00:00 [facility] 2022-04-08 2022-04-08 Outpatient GUU_SHENG_Y [facility] 116 [id number] [place] 10:56:00 10:56:00 AW 50697 [facility] 2022-04-06 2022-04-06 Outpatient GUU_SHENG_Y [facility] 116 [id number] [place] 11:51:00 11:51:00 AW 87535 [facility] 2022-03-09 2022-03-09 ambulatory STLMLC STLMLC [id number] Common 00:00:00 00:00:00 [facility] 2022-03-08 2022-03-08 Orders Doctor CH[facility] 1.2.840.114 [id number] Univers 00:00:00 00:00:00 Only Unassigned, STEFFEN 350.1.13.10 ity [facility] 4.2.7.2.686 Mumtaz as [id number] [place] [address] Branch 2022-03-04 2022-03-04 Outpatient GUU_SHENG_Y [facility] [id number] [place] 11:27:00 11:27:00 AW [facility] 2022-02-18 2022-02-18 ambulatory STLMLC STLMLC [id number] Common 00:00:00 00:00:00 [facility] 2022-02-18 2022-02-18 ambulatory STLMLC STLMLC [id number] Common 00:00:00 00:00:00 [facility] 2022-02-18 2022-02-18 ambulatory STLMLC STLMLC [id number] Common 00:00:00 00:00:00 [facility] 2022-02-10 2022-02-10 ambulatory STLMLC STLMLC [id number] Common 00:00:00 00:00:00 [facility] 2022-02-05 2022-02-05 ambulatory STLMLC STLMLC [id number] Common 00:00:00 00:00:00 [facility] 2022-02-02 2022-02-02 ambulatory STLMLC STLMLC [id number] Common 00:00:00 00:00:00 [facility] 2022-01-14 2022-01-14 Outpatient GUU_SHENG_Y [facility] [id number] [place] 03:25:00 03:25:00 AW [id number] [facility] 2022-01-13 2022-01-13 Outpatient GUU_SHENG_Y [facility] 116 [id number] [place] 10:07:00 10:07:00 AW [facility] 2021-12-22 2021-12-22 Outpatient GUU_SHENG_Y [facility] 116 [id number] [place] 11:02:00 11:02:00 AW [facility] 2021-12-10 2021-12-10 Outpatient GUU_SHENG_Y [facility] 116 [id number] [place] 11:08:00 11:08:00 AW [facility] 2021-11-26 2021-11-27 Outpatient nullFlavo MNA [id number] Memoria 15:15:00 05:59:59 r Neurology 03 l Jarvis Baeza 2021-11-26 2021-11-27 Outpatient nullFlavo MNA [id number] Memoria 15:15:00 05:59:59 r Neurology 03 l Jarvis Martinann 2021-11-26 2021-11-26 Outpatient Charles MHMISCHER MHMISCHER [id number] 09:15:00 23:59:59 Abhijeet Dedrick [facility] 2021-11-26 2021-11-26 Outpatient MHIE MHIE [id number] Memoria 09:15:00 09:15:00 03 l Ravena 2021-11-21 2021-11-21 Outpatient GUU_SHENG_Y [facility] 116 [place] 01:31:00 01:31:00 AW [facility] 2021-11-17 2021-11-17 [facility], Ang - Db [facility] 1.2.840.1 14 [id number] Univers 10:30:00 10:45:00 [facility] 350.1.13.10 [facility] 4.2.7.2.686 Mumtaz as PATRICIA?BLEA [phone] [address] MEDICAL OFFICE BUILDING 2021-11-17 2021-11-17 Outpatient R [facility] [id number] Univers 10:30:00 10:30:00 [id number] [facility] 2021-11-17 2021-11-17 [facility] [id number] Univers 10:30:00 10:30:00 [facility] 2021-11-07 2021-11-07 Outpatient GUU_SHENG_Y [facility] 116 [place] 09:42:00 09:42:00 AW [facility] 2021-11-06 2021-11-06 Outpatient GUU_SHENG_Y [facility] 116 [id number] [place] 06:28:00 06:28:00 AW [facility] 2021-11-05 2021-11-05 ambulatory STLMLC STLMLC [id number] Common 00:00:00 00:00:00 [facility] 2021-11-04 2021-11-04 Telephone Bi [facility] 1.2.840.114 [id number] Univers 00:00:00 00:00:00 Tiffanie HEALTH 350.1.13.10 i ty of [place] [phone] [facility] 027 Branch 2021-10-30 2021-10-30 Hospital Sharron [facility] 1.2.840.114 [id number] Univers 12:32:56 23:59:00 Encounter Vasu Pereyra Y HEALTH 350.1.13.10 ity of CL[place] [phone] [facility] 807 Branch 2021-10-30 2021-10-30 Office Marvin Liu [facility] 1.2.840. 114 [id number] Univers 11:15:00 12:31:56 Visit Jc Blanchard HEALTH 350.1.13.10 ity of [place] [id number] [facility] 027 Branch 2021-10-30 2021-10-30 Outpatient Tavon BLANCHARD [facility] [id number] Univers 11:15:00 12:31:56 JC [facility] 2021-10-13 2021-10-13 Outpatient Tavon BUCK [facility] [id number] Univers 10:15:00 10:11:02 [facility] 2021-10-08 2021-10-08 Outpatient Tavon BUCK [facility] [id number] Univers 10:00:00 11:18:31 [facility] 2021-10-01 2021-10-01 ambulatory STLMLC STLMLC [id number] Common 00:00:00 00:00:00 [facility] 2021-09-29 2021-09-29 ambulatory STLMLC STLMLC [id number] Common 00:00:00 00:00:00 [facility] 2021-09-19 2021-09-19 Outpatient GUU_SHENG_Y [facility] [id number] [place] 01:51:00 01:51:00 AW 16662 [facility] 2021-09-18 2021-09-18 Outpatient GUU_SHENG_Y [facility] 116 [place] 03:47:00 03:47:00 AW 13603 [facility] 2021-09-17 2021-09-17 Outpatient Tavon BUCK [facility] [id number] [facility] 09:30:00 10:57:28 DESIRE campos [facility] 2021-08-25 2021-08-26 Outpatient nullFlavo MNA [id number] Memoria 15:15:00 05:59:59 r Neurology 02 isidra Baeza 2021-08-25 2021-08-26 Outpatient nullFlavo MNA [id number] Memoria 15:15:00 05:59:59 r Neurology 02 isidra Baeza 2021-08-25 2021-08-25 Outpatient DIANNE Soto MHMISCHER [id number] 09:15:00 23:59:59 Abhijeet Livier Davenport 2021-08-25 2021-08-25 Outpatient MHIE MHIE [id number] Memoria 09:15:00 09:15:00 02 isidra Baeza 2021-07-09 2021-07-09 Ambulatory nullFlavo MNA [id number] Memoria 14:15:00 14:15:00 Pre-Reg r Neurology 01 isidra Baeza 2021-07-09 2021-07-09 Ambulatory nullFlavo MNA [id number] Memoria 14:15:00 14:15:00 Pre-Reg r Neurology 01 isidra Baeza 2021-07-09 2021-07-09 Outpatient MHIE MHIE [id number] Memoria 09:15:00 09:15:00 01 isidra Baeza 2021-07-09 2021-07-09 Outpatient ANNIKA SotoSCHNICANOR MHMISCHER [id number] 09:15:00 09:15:00 Abhijeet 01 Issac 2021-07-09 2021-07-09 [facility] [id number] Common 00:00:00 00:00:00 [facility] 2021-07-02 2021-07-02 Outpatient GUU_SHENG_Y [facility] [id number] [place] 11:34:00 11:34:00 AW 04153 [facility] 2021-06-30 2021-06-30 [facility] [id number] Common 00:00:00 00:00:00 [facility] 2021-06-25 2021-06-25 Outpatient GUU_SHENG_Y [facility] 116 [place] 10:44:00 10:44:00 AW 66559 [facility] 2021-06-23 2021-06-23 Outpatient GUU_SHENG_Y [facility] 116 [id number]- [place] 03:14:00 03:14:00 AW 74222 [facility] 2021-06-06 2021-06-06 [facility] [id number] Common 00:00:00 00:00:00 [facility] 2021-05-23 2021-05-24 Outpatient nullFlavo MNA [id number] Memoria 20:15:00 04:59:59 r Neurology 00 l [facility] 2021-05-23 2021-05-24 Outpatient nullFlavo MNA [id number] Memoria 20:15:00 04:59:59 r Neurology 00 l [facility] 2021-05-23 2021-05-23 Outpatient DIANNE Soto [facility]UFS[facility]NICANOR [id number] 15:15:00 23:59:59 Abhijeet 00 Issac 2021-05-23 2021-05-23 Outpatient JA PERES [id number] Memoria 15:15:00 15:15:00 00 l [place] 2021-05-23 2021-05-23 Outpatient GUU_SHENG_Y MEHOP MEHOP [id number] [place] 02:20:00 02:20:00 [place] [id number] [facility] 2021-05-21 2021-05-21 Outpatient NYLAU_SHENG_Y [facility] [id number] [place] 10:55:00 10:55:00 [place] [id number] da [facility] 2021-05-05 2021-05-05 Outpatient STLMLC STLMLC [id number] Common 00:00:00 00:00:00 [facility] 2021-04-22 2021-04-22 Outpatient STLMLC STLMLC [id number] Common 00:00:00 00:00:00 [facility] 2021-03-21 2021-03-21 Outpatient STLMLC STLMLC [id number] Common 00:00:00 00:00:00 [facility] Results This patient has no known results.
--- NOTE | 2022-06-11 08:59 | RAD REPORT ---
EXAM DESCRIPTION: RAD - Chest Single View - 06/11/2022 8:48 am CLINICAL HISTORY: MALAISE COMPARISON: Chest Pa And Lat (2 Views) dated 08/11/2021 FINDINGS: Lines: None. Lungs: No evidence of edema or pneumonia. Pleural: No significant pleural effusions or pneumothorax. Cardiac: The heart size is within normal limits. Mediastinum: Within normal limits. Bones: No acute fractures. Other: None IMPRESSION: No acute cardiopulmonary disease.
--- NOTE | 2022-06-11 09:12 | RAD REPORT ---
EXAM DESCRIPTION: CT - Head Brain Wo Cont - 06/11/2022 9:00 am CLINICAL HISTORY: dizziness, nausea COMPARISON: Head Brain Wo Cont dated 08/13/2021 TECHNIQUE: All CT scans are performed using dose optimization technique as appropriate and may inclu de automated exposure control or mA/KV adjustment according to patient size. FINDINGS: No intracranial hemorrhage, hydrocephalus or extra-axial fluid collection.No areas of brai n edema or evidence of midline shift. Large remote left MCA territory infarct. The paranasal sinuses and mastoids are clear. The calvarium is intact. IMPRESSION: No acute intracranial abnormality. Remote large left MCA territory infarct.
[2022-06-11] MEDS ORDERED: ONDANSETRON 4 MG/2 ML VIAL ONE (09:14)
[2022-06-11] MEDS ORDERED: NA CHLORIDE 0.9% 1,000 ML ONE (09:14)
[2022-06-11 09:34] LABS: Absolute Lymphocytes (CBC) 0.6 K/uL (0.7-4.9); Hematocrit 37.6 % (39.6-49.0); Lymphocytes % 7.8 % (15.3-44.8); MCV 80.6 fL (80-100); MPV 7.5 fL (7.6-11.3); RBC Red Blood Cell Count 4.66 M/uL (4.33-5.43)
[2022-06-11 09:38] LABS: Protime INR 1.27
[2022-06-11] MEDS ORDERED: MECLIZINE HCL 12.5 MG TAB ONE (10:05)
[2022-06-11 10:14] LABS: Albumin 3.3 g/dL (3.4-5.0); Bilirubin Direct 0.2 mg/dL (0-0.2); Bilirubin Total 0.6 mg/dL (0.2-1.0); Magnesium 1.8 mg/dL (1.8-2.4); Protein, Total 7.7 g/dL (6.4-8.2); Troponin High Sensitivity 3.9 pg/mL (<58.9)
--- NOTE | 2022-06-11 11:02 | ER ---
Nurse's Notes [facility] Name: Jose Ny Age: 61 yrs Sex: Male : 1960 Arrival Date: 06/11/2022 Time: 08:27 Bed 8 Private MD: Juan Carlos Adams Diagnosis: Nausea with vomiting, unspecified;Dizziness Presentation: 06/11 08:33 Chief complaint: Patient states: nausea dizziness since yesterday, hasn't eaten since iw Wednesday, hx of stroke with right sided deficits. Coronavirus screen: Client presents with at least one sign or symptom that may indicate coronavirus-19. Ebola Screen: Patient negative for fever greater than or equal to 101.5 degrees Fahrenheit, and additional compatible Ebola Virus Disease symptoms Patient denies exposure to infectious person. Patient denies travel to an Ebola-affected area in the 21 days before illness onset. No symptoms or risks identified at this time. Initial Sepsis Screen: Does the patient meet any 2 criteria? No. Patient's initial sepsis screen is negative. Does the patient have a suspected source of infection? No. Patient's initial sepsis screen is negative. Risk Assessment: Do you want to hurt yourself or someone else? Patient reports no desire to harm self or others. Onset of symptoms was June 10, 2022. 08:33 Method Of Arrival: Wheelchair iw 08:33 Acuity: DREAD 3 iw Historical: - Allergies: 08:34 No Known Allergies; iw - Home Meds: 08:34 aspirin 81 mg Oral cap 1 cap once daily [Active]; simvastatin 10 mg Oral tab 1 tab once iw daily [Active]; Tylenol #3 Oral [Active]; diclofenac oral [Active]; - PMHx: 08:34 CVA; Hypercholesterolemia; Vertigo; iw Screenin:15 Abuse screen: Denies threats or abuse. Nutritional screening: No deficits noted. aa5 Tuberculosis screening: No symptoms or risk factors identified. Fall Risk Secondary diagnosis (15 points) impaired mobility, CVA, IV access (20 points). Gait- Impaired (20 pts.). Total Arciniega Fall Scale indicates High Risk Score (45 or more points). Fall prevention measures have been instituted. Side Rails Up X 2 Placed Close to Nursing Station. Assessment: 09:00 General: Appears uncomfortable, Behavior is calm, cooperative. Pain: Complains of pain aa5 in left shoulder. Reports he has follow-up appointment for possible biopsy to left shoulder. Neuro: Level of Consciousness is awake, alert, obeys commands, Oriented to person, place, time, situation, [employer].[place] are weak on right Weakness in right hand(s) arm(s) leg(s) foot/feet Reports he is ambulatory with limp and reports baseline numbness/tingling to right arm and right leg. . Speech slow with some difficulty speaking. . Facial symmetry appears normal, Reports dizziness. Cardiovascular: Heart tones S1 S2 present Rhythm is regular. Respiratory: Airway is patent Respiratory effort is even, unlabored, Respiratory pattern is regular, symmetrical. GI: Abdomen is flat, non-distended, Bowel sounds present X 4 quads. Abd is soft and non tender X 4 quads. Reports nausea, vomiting, Patient currently denies diarrhea. : No signs and/or symptoms were reported regarding the genitourinary system. EENT: No signs and/or symptoms were reported regarding the EENT system. Derm: Skin is pink, warm \T\ dry. Musculoskeletal: Right sided weakness noted, pt reports he is ambulatory with limp. 09:00 Reassessment: Pt's family/sister at bedside . aa5 09:30 Reassessment: Patient is alert, oriented x 3, equal unlabored respirations, skin aa5 warm/dry/pink. 10:45 Reassessment: Patient is alert, oriented x 3, equal unlabored respirations, skin aa5 warm/dry/pink. Patient states feeling better. Patient states symptoms have improved. 11:18 Reassessment: Pt tolerated cup of water well. . aa5 11:45 Reassessment: Patient is alert, oriented x 3, equal unlabored respirations, skin aa5 warm/dry/pink. 11:45 Neuro: Denies dizziness. GI: Patient currently denies nausea. aa5 13:00 Reassessment: Patient is alert, oriented x 3, equal unlabored respirations, skin aa5 warm/dry/pink. Awaiting room assigment. 16:30 Reassessment: Patient is alert, oriented x 3, equal unlabored respirations, skin aa5 warm/dry/pink. 17:00 Reassessment: Patient is alert, oriented x 3, equal unlabored respirations, skin aa5 warm/dry/pink. Vital Signs: 08:42 BP 139 / 78; Pulse 65; Resp 16; Pulse Ox 98% on R/A; iw 09:30 BP 140 / 71; Pulse 75; Resp 14 S; Temp 97.9(TE); Pulse Ox 97% on R/A; aa5 10:45 BP 136 / 75; Pulse 70; Resp 18 S; Pulse Ox 98% on R/A; aa5 11:45 BP 138 / 70; Pulse 65; Resp 16 S; Pulse Ox 98% on R/A; aa5 13:00 BP 135 / 69; Pulse 63; Resp 16 S; Temp 98.0(TE); Pulse Ox 99% on R/A; aa5 16:30 BP 131 / 69; Pulse 60; Resp 14 S; Temp 98.0(TE); Pulse Ox 98% on R/A; aa5 NIH Stroke Scale Scores: 09:46 NIHSS Score: 3 [facility] ED Course: 08:27 Patient arrived in ED. am2 08:27 Juan Carlos Adams DO is Private Physician. am2 08:27 Ting Szymanski FNP [facility] jh7 08:27 Nathaniel Jaramillo DO is Attending Physician. jh7 08:34 Triage completed. iw 08:35 Arm band placed on. iw 08:37 Omayra Brooks, RN is Primary Nurse. aa5 08:50 XRAY Chest (1 view) In Process Unspecified. EDMS 08:51 EKG done, by ED staff, reviewed by Ting GIRON. em1 09:00 Patient has correct armband on for positive identification. Bed in low position. Call aa5 light in reach. Side rails up X2. Adult w/ patient. Client placed on continuous cardiac and pulse oximetry monitoring. NIBP monitoring applied. 09:02 CT Head Brain wo Cont In Process Unspecified. EDMS 09:10 Missed attempt(s): 22 gauge in right wrist. Bleeding controlled, band aid applied, aa5 catheter tip intact. 09:15 Initial lab(s) drawn, by id, sent to lab. Inserted saline lock: 22 gauge in right aa5 antecubital area, using aseptic technique. Blood collected. 11:00 Nick Ross is Hospitalizing Provider. jh7 12:29 XRAY Abdomen 1 View (KUB) In Process Unspecified. EDMS 17:00 No provider procedures requiring assistance completed. Patient admitted, IV remains in aa5 place. Administered Medications: 09:20 Drug: NS 0.9% 1000 ml Route: IV; Rate: 1 bolus; Site: right antecubital; aa5 10:45 Follow up: IV Status: Completed infusion; IV Intake: 1000ml aa5 09:20 Drug: Zofran (Ondansetron) 4 mg Route: IVP; Site: right antecubital; aa5 09:25 Follow up: Response: No adverse reaction aa5 10:13 Drug: Meclizine 25 mg Route: PO; aa5 10:45 Follow up: Response: No adverse reaction aa5 Medication: 17:00 VIS not applicable for this client. aa5 Intake: 10:45 IV: 1000ml; Total: 1000ml. aa5 Outcome: 11:01 Decision to Hospitalize by Provider. 7 17:00 Admitted to Med/surg accompanied by tech, via stretcher, with chart, Report called to [facility] VASHTI Haywood 17:00 Condition: stable 17:00 Discharge instructions given to patient, family, Instructed on the need for admit, Demonstrated understanding of instructions. 17:15 Patient left the ED. aa5 NIH Stroke Scale - NIH Stroke Score Date: 06/11/2022 Time: 09:46 Total Score = 3 1a. Level of Consciousness (LOC) - 0(Alert) 1b. Level of Consciousness (LOC) (Month \T\ Age) - 0(Both) 1c. LOC Commands (Open \T\ Closes Eyes/Price Analyst) - 0(Both) 2. Best Gaze (Lateral Gaze Paresis) - 0(Normal) 3. Visual Field Loss - 0(No visual loss) 4. Facial Palsy - 0(Normal) 5a. Left Arm: Motor (10-second hold) - 0(No drift) 5b. Right Arm: Motor (10-second hold) - 0(No drift) 6a. Left Leg: Motor (5-second hold - always test supine) - 0(No drift) 6b. Right Leg: Motor (5-second hold - always test supine) - 0(No drift) 7. Limb Ataxia (finger/nose \T\ heel/west - test with eyes open) - 0(Absent) 8. Sensory Loss (pinprick arms/legs/face) - 1(Mild to moderate loss) 9. Best Language: Aphasia (description/naming/reading) - 1(Mild to moderate aphasia) 10. Dysarthria (speech clarity - read or repeat words) - 1(Mild to Moderate) 11. Extinction and Inattention (visual/tactile/auditory/spatial/personal) - 0(No abnormality) Initials: jh7 Signatures: Dispatcher [employer] Ysabel Maradiaga, Garcia Stacy RN em1 Omayra Brooks RN RN aa5 Ligia Turner am2 Ting Szymanski, BARREL STAVE INSPECTOR BARREL STAVE INSPECTOR jh7
--- NOTE | 2022-06-11 11:02 | EDPHYS ---
Physician Documentation [facility] Name: Jose Ny Age: 61 yrs Sex: Male : 1960 Arrival Date: 06/11/2022 Time: 08:27 Bed 8 Private MD: [facility] ED Physician Nathaniel Jaramillo HPI: 06/11 08:36 This 61 yrs old Male presents to ER via Wheelchair with complaints of Nausea, Dizziness.7 08:36 The patient presents to the emergency department with nausea, vomiting. Onset: The jh7 symptoms/episode began/occurred 1 day(s) ago. Associated signs and symptoms: Pertinent positives: nausea, vomiting, Pertinent negatives: abdominal pain, diarrhea, fever. 61-year-old male presents for nausea, vomiting, and dizziness since 3 PM on Wednesday. Reports a stroke in 2017 with right-sided deficits and HLD. Denies any increased difficulty with speech, weakness, syncope, or visual changes. States that he takes simvastatin and a baby aspirin daily.. Historical: - Allergies: 08:34 No Known Allergies; iw - Home Meds: 08:34 aspirin 81 mg Oral cap 1 cap once daily [Active]; simvastatin 10 mg Oral tab 1 tab once iw daily [Active]; Tylenol #3 Oral [Active]; diclofenac oral [Active]; - PMHx: 08:34 CVA; Hypercholesterolemia; Vertigo; iw ROS: 08:36 Constitutional: Negative for fever, chills, and weight loss, Eyes: Negative for injury, jh7 pain, redness, and discharge, ENT: Negative for injury, pain, and discharge, Cardiovascular: Negative for chest pain, palpitations, and edema, Respiratory: Negative for shortness of breath, cough, wheezing, and pleuritic chest pain, Back: Negative for injury and pain, MS/Extremity: Negative for injury and deformity, Skin: Negative for injury, rash, and discoloration. 08:36 Abdomen/GI: Positive for nausea, vomiting, Negative for abdominal pain, diarrhea, dysphagia. 08:36 Neuro: Positive for dizziness, Negative for altered mental status, headache, loss of consciousness, speech changes, syncope. 08:36 All other systems are negative. Exam: 08:36 Constitutional: The patient appears alert, awake, uncomfortable. jh7 08:36 Abdomen/GI: Inspection: abdomen appears normal, Bowel sounds: normal, Palpation: abdomen is soft and non-tender, in all quadrants. 08:36 Neuro: Orientation: is normal, Mentation: is normal, Memory: is normal, Motor: 08:41 Head/Face: Normocephalic, atraumatic. Eyes: Pupils equal round and reactive to light, jh7 extra-ocular motions intact. Lids and lashes normal. Conjunctiva and sclera are non-icteric and not injected. Cornea within normal limits. Periorbital areas with no swelling, redness, or edema. ENT: Nares patent. No nasal discharge, no septal abnormalities noted. Oropharynx with no redness, swelling, or masses, exudates, or evidence of obstruction, uvula midline. Mucous membranes moist. Neck: Trachea midline, no thyromegaly or masses palpated, and no cervical lymphadenopathy. Supple, full range of motion without nuchal rigidity, or vertebral point tenderness. No Meningismus. Cardiovascular: Regular rate and rhythm with a normal S1 and S2. No gallops, murmurs, or rubs. Normal PMI, no JVD. No pulse deficits. Respiratory: Lungs have equal breath sounds bilaterally, clear to auscultation and percussion. No rales, rhonchi or wheezes noted. No increased work of breathing, no retractions or nasal flaring. Back: No spinal tenderness. No costovertebral tenderness. Full range of motion. Skin: Warm, dry with normal turgor. Normal color with no rashes, no lesions, and no evidence of cellulitis. 09:46 Neuro: Cranial nerves: visual quintan[place] are intact. Funduscopic exam reveals no obvious jh7 abnormalities, extraocular movements are intact, Facial palsy and sensory deficits are absent. no gross hearing deficit,. Nystagmus is absent. Speech is slowed, Gag reflex present. Tongue strength is normal, Cerebellar function: is grossly normal, Sensation: numbness, that is moderate, of the right arm and right leg, Gait: not tested. Vital Signs: 08:42 BP 139 / 78; Pulse 65; Resp 16; Pulse Ox 98% on R/A; iw 09:30 BP 140 / 71; Pulse 75; Resp 14 S; Temp 97.9(TE); Pulse Ox 97% on R/A; aa5 10:45 BP 136 / 75; Pulse 70; Resp 18 S; Pulse Ox 98% on R/A; aa5 11:45 BP 138 / 70; Pulse 65; Resp 16 S; Pulse Ox 98% on R/A; aa5 13:00 BP 135 / 69; Pulse 63; Resp 16 S; Temp 98.0(TE); Pulse Ox 99% on R/A; aa5 16:30 BP 131 / 69; Pulse 60; Resp 14 S; Temp 98.0(TE); Pulse Ox 98% on R/A; aa5 NIH Stroke Scale Scores: 09:46 NIHSS Score: 3 [facility] MDM: 08:[address] [facility] 11:30 Differential diagnosis: viral gastroenteritis, Acute CVA, peripheral vertigo. Data [facility] reviewed: vital signs, nurses notes, lab test result(s), EKG, radiologic studies, CT scan, plain films. Data interpreted: front desk monitor: rate is 75 beats/min, rhythm is normal sinus rhythm, Interpretation: normal rate, normal rhythm, Pulse oximetry: is 97 %. Interpretation: normal. Counseling: I had a detailed discussion with the patient and/or guardian regarding: the historical points, exam findings, and any diagnostic results supporting the discharge/admit diagnosis, the need for further work-up and treatment in the hospital. Response to treatment: the patient's symptoms have mildly improved after treatment. ED course: Spoke to Dr. Ross regarding patient admission. The patient will be placed under observation and admitted for IV fluid therapy and antiemetics. The patient and family understood and agreed with the plan of care.. 06/11 08:36 Order name: Basic Metabolic Panel; Complete Time: 10:15 [facility] 06/11 08:36 Order name: CBC with Diff; Complete Time: : [facility] 06/11 08:36 Order name: LFT's; Complete Time: 10:15 [facility] 06/11 08:36 Order name: Magnesium; Complete Time: 10:15 [facility] 06/11 08:36 Order name: NT PRO-BNP; Complete Time: 10:15 [facility] 06/11 08:36 Order name: PT-INR; Complete Time: 09:42 [facility] 06/11 08:36 Order name: Troponin HS; Complete Time: 10:15 [facility] 06/11 08:36 Order name: XRAY Chest (1 view); Complete Time: 09:12 [facility] 06/11 08:36 Order name: CT Head Brain wo Cont; Complete Time: 09:12 [facility] 06/11 10:48 Order name: SARS RAPID; Complete Time: 12:33 [facility] 06/11 11:09 Order name: Urine Microscopic Only; Complete Time: 13:12 [facility] 06/11 11:44 Order name: XRAY Abdomen 1 View (KUB); Complete Time: 13:12 [facility] 06/11 12:21 Order name: Urine Dipstick-Ancillary; Complete Time: 12:33 EDMS 06/11 08:36 Order name: EKG; Complete Time: 08:37 [facility] 06/11 08:36 Order name: Cardiac monitoring; Complete Time: 09:08 [facility] 06/11 08:36 Order name: EKG - Nurse/Tech; Complete Time: 08:51 [facility] 06/11 08:36 Order name: IV Saline Lock; Complete Time: 09:43 [facility] 06/11 08:36 Order name: Labs collected and sent; Complete Time: 09:08 [facility] 06/11 08:36 Order name: O2 Per Protocol; Complete Time: 09:08 [facility] 06/11 08:36 Order name: O2 Sat Monitoring; Complete Time: 09:08 [facility] 06/11 10:25 Order name: PO challenge; Complete Time: 11:18 [facility] EC:50 Rate is 70 beats/min. Rhythm is regular. QRS [place] is Normal. [place] interval is normal at 7 116 msec. QRS interval is normal at 86 msec. QT interval is normal at 370 msec. No Q waves. T waves are Normal. No ST changes noted. Clinical impression: Normal ECG. Administered Medications: 09:20 Drug: NS 0.9% 1000 ml Route: IV; Rate: 1 bolus; Site: right antecubital; aa5 10:45 Follow up: IV Status: Completed infusion; IV Intake: 1000ml aa5 09:20 Drug: Zofran (Ondansetron) 4 mg Route: IVP; Site: right antecubital; aa5 09:25 Follow up: Response: No adverse reaction aa5 10:13 Drug: Meclizine 25 mg Route: PO; aa5 10:45 Follow up: Response: No adverse reaction aa5 Disposition: 08:36 Co-signature as Attending Physician, Nathaniel Jaramillo DO PA/RESOLUTION REP's history reviewed, patient ms3 interviewed, and examined. HPI: 61-year-old male with past medical history of stroke, hypercholesterolemia, vertigo presents for dizziness and vomiting that began yesterday. Patient denies abdominal pain. Patient endorses subjective fever and chills. My personal exam of patient reveals: On exam patient is alert, in no apparent distress, nontoxic-appearing. Heart rate and rhythm are regular without murmurs rubs or gallops. Lungs clear to auscultation bilaterally. Abdomen is nontender to palpation with bowel sounds present. Skin is without diaphoresis or rashes. Patient has previous right-sided deficits that family reports have not become worse. I agree with assessment and care plan and confirm the diagnosis (es) above. 16:23 Co-signature as Attending Physician, Nathaniel Jaramillo DO. ms3 Disposition Summary: 06/11/22 11:01 Hospitalization Ordered Hospitalization Status: Observation [facility] Provider: Nick Ross [facility] Location: Telemetry/MedSurg (observation) [facility] Condition: Stable [facility] Problem: new [facility] Symptoms: are unchanged [facility] Bed/Room Type: Standard [facility] Room Assignment: 410(06/11/22 15:34) bd Diagnosis - Nausea with vomiting, unspecified [facility] - Dizziness [facility] Forms: - Medication Reconciliation Form [facility] - SBAR form [facility] NIH Stroke Scale - NIH Stroke Score Date: 06/11/2022 Time: 09:46 Total Score = 3 1a. Level of Consciousness (LOC) - 0(Alert) 1b. Level of Consciousness (LOC) (Month \T\ Age) - 0(Both) 1c. LOC Commands (Open \T\ Closes Eyes/Keg Raiser) - 0(Both) 2. Best Gaze (Lateral Gaze Paresis) - 0(Normal) 3. Visual Field Loss - 0(No visual loss) 4. Facial Palsy - 0(Normal) 5a. Left Arm: Motor (10-second hold) - 0(No drift) 5b. Right Arm: Motor (10-second hold) - 0(No drift) 6a. Left Leg: Motor (5-second hold - always test supine) - 0(No drift) 6b. Right Leg: Motor (5-second hold - always test supine) - 0(No drift) 7. Limb Ataxia (finger/nose \T\ heel/west - test with eyes open) - 0(Absent) 8. Sensory Loss (pinprick arms/legs/face) - 1(Mild to moderate loss) 9. Best Language: Aphasia (description/naming/reading) - 1(Mild to moderate aphasia) 10. Dysarthria (speech clarity - read or repeat words) - 1(Mild to Moderate) 11. Extinction and Inattention (visual/tactile/auditory/spatial/personal) - 0(No abnormality) Initials: [facility] Signatures: Dispatcher [employer] EDDiana Prince Irene, RN RN iw Omayra Brooks RN RN aa5 Nathaniel Jaramillo, DO ms3 Ting Szymanski, MACHINE FILLER SHREDDER MACHINE FILLER SHREDDER [facility] Corrections: (The following items were deleted from the chart) 08:41 08:36 Constitutional: The patient appears alert, awake, uncomfortable, [place] [id number] 15:14 11:01 [facility] 15:34 15:[address] [place] [id number]
[2022-06-11 12:03] LABS: SARS-CoV-2 Antigen Rapid Res Negative (Negative)
[2022-06-11 12:21] LABS: Urine Blood 2+ (Negative); Urine Glucose Negative (Negative); Urine Protein Negative (Negative); Urine pH 5.5 (5.0-7.0)
--- NOTE | 2022-06-11 12:44 | RAD REPORT ---
EXAM DESCRIPTION: RAD - Abdomen 1 View (KUB) - 06/11/2022 12:27 pm CLINICAL HISTORY: CONSTIPATION COMPARISON: <Comparisons> FINDINGS: Moderately large stool volume is seen throughout most of the colon. The colon is not abnor reyes dilated. No small bowel dilatation. No obstruction, free air or pneumatosis. No suspicious calc ifications. Phleboliths are seen along the pelvic floor. Patient probably has punctate nonobstructing calyx calculi lower pole of the left kidney. No significant bony findings IMPRESSION: No obstruction or other acute abdomen or pelvis finding. Moderately large stool volume is present throughout most of the colon.
[2022-06-11 12:48] LABS: Urine Mucus 4+ /HPF (None Seen); Urine RBC <5 /HPF (None Seen)
--- NOTE | 2022-06-11 13:04 | P.HP ---
Certification for Inpatient Patient admitted to: Observation With expected LOS: <2 Midnights Practitioner: I am a practitioner with admitting privileges, knowledge of patient current condition, hospital course, and medical plan of care. Services: Services provided to patient in accordance with Admission requirements found in Title 42 Section 412.3 of the Code of Federal Regulations Patient History Date of Service: 06/11/22 Reason for admission: Nausea and vomiting History of Present Illness: 61-year-old gentleman with a history of CVA with right hemiparesis and aphasia was brought to the emergency department due to intractable nausea and vomiting of 2 days duration. Patient has been dry heaving, and complaining of dizziness. He denied any change in right extremity weakness or visual disturbance. He denied any fever but endorsed about 4 days of constipation. Head CT done in the emergency department showed old labs left MCA stroke, no acute event, UA negative for UTI. KUB demonstrates large amount of retained stool. He does not meet criteria for sepsis. Patient is not tolerating p.o. He is hospitalized for further management. Allergies No Known Allergies Allergy (Unverified 06/09/22 07:10) - Past Medical/Surgical History -: History of CVA -: Hyperlipidemia - Family History Father -: Hypertension - Social History Smoking Status: Never smoker Alcohol use: No CD- Drugs: No Place of Residence: Home Review of Systems Other: Except as documented, all other systems reviewed and negative. Physical Examination - Physical Exam General: Alert, In no apparent distress, Oriented x3 HEENT: Atraumatic, PERRLA, Mucous membr. moist/pink, EOMI, Sclerae nonicteric Neck: Supple, JVD not distended Respiratory: Clear to auscultation bilaterally, Normal air movement Cardiovascular: No edema, Regular rate/rhythm Capillary refill: <2 Seconds Gastrointestinal: Normal bowel sounds, Soft and benign, Non-distended, No tenderness Musculoskeletal: No swelling, No tenderness Integumentary: No rashes, No cyanosis Neurological: Other (Right-sided weakness) Lymphatics: No axilla or inguinal lymphadenopathy - Studies Laboratory Data (last 24 hrs) 06/11/22 09:21: PT 14.0 H, INR 1.27 06/11/22 09:21: WBC 7.60 D, Hgb 12.7 L, Hct 37.6 L, Plt Count 208 06/11/22 09:21: Sodium 136, Potassium 4.0, BUN 12, Creatinine 0.72, Glucose 107 H, Magnesium 1.8, Total Bilirubin 0.6, AST 9 L, ALT 13, Alkaline Phosphatase 99 Assessment and Plan - Problems (Diagnosis) (1) Intractable nausea and vomiting Current Visit: Yes Status: Acute (2) Dizziness Current Visit: Yes Status: Acute (3) History of CVA (cerebrovascular accident) Current Visit: Yes Status: Acute (4) Functional constipation Current Visit: Yes Status: Acute - Plan Place patient under observation. Patient's symptoms likely related to constipation. Possible acute viral illness. Hydrate with IV fluid Supportive measures-antiemetics as needed for nausea. Monitor and optimize electrolytes. Laxatives for constipation. UA shows no UTI. Reconcile and resume other home medications. - Advance Directives Does patient have a Living Will: No Does patient have a Durable POA for Healthcare: No
[2022-06-11] MEDS: NA CHLORIDE 0.9% 1,000 ML IV SCH (16:32)
[2022-06-11] MEDS ORDERED: ONDANSETRON 4 MG/2 ML VIAL IV PRN (16:32)
[2022-06-11] MEDS: LACTULOSE 20 GM/30 ML UCUP PO SCH ×2 (17:18→20:32)
[2022-06-11] MEDS: ENOXAPARIN 40 MG/0.4 ML SQ SCH (17:18)
[2022-06-11 17:32] VITALS: BMI 23.0
[2022-06-11] MEDS ORDERED: HYDROCODONE/APAP 5/325 MG TAB PO PRN (17:41)
[2022-06-11 18:26] VITALS: O2SAT 97
[2022-06-12] MEDS: NA CHLORIDE 0.9% 1,000 ML IV SCH (01:59)
[2022-06-12] MEDS: LACTULOSE 20 GM/30 ML UCUP PO SCH (08:06)
[2022-06-12] MEDS: ENOXAPARIN 40 MG/0.4 ML SQ SCH (08:07)
[2022-06-12 08:19] VITALS: BP 166/79; TEMP 98.5
--- NOTE | 2022-06-12 10:42 | P.DS ---
Admission Date: 06/11/22 Discharge Date: 06/12/22 Disposition: ROUTINE DISCHARGE Discharge Condition: FAIR Reason for Admission: Nausea and vomiting - Problems (1) Intractable nausea and vomiting Current Visit: Yes Status: Acute (2) Dizziness Current Visit: Yes Status: Acute (3) History of CVA (cerebrovascular accident) Current Visit: Yes Status: Acute (4) Functional constipation Current Visit: Yes Status: Acute Brief History of Present Illness: 61-year-old gentleman with a history of CVA with right hemiparesis and aphasia was brought to the emergency department due to intractable nausea and vomiting of 2 days duration. Patient has been dry heaving, and complaining of dizziness. He denied any change in right extremity weakness or visual disturbance. He denied any fever but endorsed about 4 days of constipation. Head CT done in the emergency department showed old labs left MCA stroke, no acute event, UA negative for UTI. KUB demonstrates large amount of retained stool. He does not meet criteria for sepsis. Patient was not tolerating p.o. He was hospitalized for further management. Hospital Course: Patient placed under observation on the medical floor. Patient symptoms likely related to constipation. Constipation was treated with lactulose. Patient successfully had multiple bowel movement and his symptoms resolved. Patient currently tolerating his meals. He has no complaint and is deemed stable for discharge. Vital Signs/Physical Exam: Temp Pulse Resp BP Pulse Ox 98.5 F 89 18 166/79 H 97 06/12/22 08:00 06/12/22 08:00 06/12/22 08:00 06/12/22 08:00 06/12/22 08:00 General: Alert, In no apparent distress, Oriented x3 HEENT: Mucous membr. moist/pink Neck: JVD not distended Respiratory: Clear to auscultation bilaterally, Normal air movement Cardiovascular: No edema, Regular rate/rhythm, Normal S1 S2 Gastrointestinal: Normal bowel sounds, Soft and benign, Non-distended, No tenderness Musculoskeletal: No swelling Integumentary: No cyanosis Neurological: Other (Right-sided weakness) Laboratory Data at Discharge: WBC 7.60 K/uL (4.3-10.9) D 06/11/22 09:21 Hgb 12.7 g/dL (13.6-17.9) L 06/11/22 09:21 Hct 37.6 % (39.6-49.0) L 06/11/22 09:21 Plt Count 208 K/uL (152-406) 06/11/22 09:21 PT 14.0 SECONDS (9.5-12.5) H 06/11/22 09:21 INR 1.27 06/11/22 09:21 Sodium 136 mmol/L (136-145) 06/11/22 09:21 Potassium 4.0 mmol/L (3.5-5.1) 06/11/22 09:21 BUN 12 mg/dL (7-18) 06/11/22 09:21 Creatinine 0.72 mg/dL (0.55-1.3) 06/11/22 09:21 Glucose 107 mg/dL (74-106) H 06/11/22 09:21 Magnesium 1.8 mg/dL (1.8-2.4) 06/11/22 09:21 Total Bilirubin 0.6 mg/dL (0.2-1.0) 06/11/22 09:21 AST 9 U/L (15-37) L 06/11/22 09:21 ALT 13 U/L (12-78) 06/11/22 09:21 Alkaline Phosphatase 99 U/L (45-117) 06/11/22 09:21 Home Medications: Aspirin 81 mg PO DAILY 06/11/22 Codeine/APAP [Tylenol #3*] 1 tab PO Q4HR PRN 06/11/22 Diclofenac Sodium [Voltaren] 75 mg PO BID 06/11/22 Simvastatin 10 mg PO BEDTIME 06/11/22 Polyethylene Glycol 3350 [Miralax] 17 gm PO BID PRN #30 packet 06/12/22 Sennosides [Senna] 17.2 mg PO BID #120 06/12/22 New Medications: Polyethylene Glycol 3350 [Miralax] 17 gm PO BID PRN #30 packet PRN Reason: Constipation Sennosides [Senna] 17.2 mg PO BID #120 Diet: AHA Activity: Fall precautions Followup: Juan Carlos Adams DO [Primary Care Provider] - (Call to schedule appointment.)
--- NOTE | 2022-06-12 13:58 | EKG ---
Test Date: 2022-06-11 Test Time: 08:43:40 Cook Supervisor: DIXIE MEASUREMENT RESULTS: Intervals: Rate: 70 GA: 116 QRSD: 86 QT: 370 QTc: 399 [place]: P: 69 GA: 116 QRS: 52 T: 62 INTERPRETIVE STATEMENTS: Normal sinus rhythm Normal ECG No previous ECG available for comparison Electronically Signed On 06-12-22 13:55:57 CDT by Barry Castro
== END 2022-06-12 11:55 | disposition home or self-care (01) ==
LOC: ER 08:25 → ERHOLD 12:45 → 4TH 16:32
PROVIDERS: ADMIT Internal Medicine; ATTEND Internal Medicine
DX: K59.04 Chronic idiopathic constipation (principal); R11.2 Nausea with vomiting, unspecified; R42 Dizziness and giddiness; E78.5 Hyperlipidemia, unspecified; I69.951 Hemiplegia and hemiparesis following unspecified cerebrovascular disease affecting right dominant side; I69.920 Aphasia following unspecified cerebrovascular disease; Z20.822 Contact with and (suspected) exposure to COVID-19
CPT/HCPCS: 96361; 93005; 85025; 80048; 36415; 83735; 85610; 80076; 84484; 83880; 70450; 74018; 71045; 97116; 97161; 96374; 99285; 87811; J8597; J1650; J7030 ×3; J2405 ×2; G0378 ×3; 81003; 81015

== ENCOUNTER 2022-06-14 10:26 | Emergency (ER) | payer OTHER ==
--- OUTSIDE RECORDS SUMMARY | 2022-06-14 10:30 | XMS REPORT | Continuity of Care Document ---
:1960 Author Organization [facility] t Address [address] [place] [address] Care Team Providers Name Role Phone Juan Carlos Adams DO Nathan Primary Care Physician [phone] Juan Carlos Adams Attending Clinician Unavailable Dinorah Daniel MD Attending Clinician [phone] Abhijeet Soto Attending Clinician GUU_SHENG_YAW Attending Clinician Unavailable Doctor Unassigned, [place] Attending Clinician Unavailable Lab, Ang - Db [...] Number Effective Date Expiration Date S ource [facility] [id number] 2021 [employer] [place] 00:00:00 (MEDICAID HMO) [...] Drug Active Univers ALLERGIE Class ity of [facility] Social History Social Habit Start Date Stop Date Quantity Comments Source Exposure to Not sure [facility] SARS-CoV-2 (event) [facility] Social History 2021-05-23 2021-05-23 [facility] 20:00:59 20:00:59 Sex [birth year] At [birth year] [facility] 00:00:00 00:00:00 Smoking Status Start Date Stop Date Source Tobacco smoking consumption unknown [facility] Medications Ordered Filled Start Stop [...] 2-23 TABLET BY l tablet 15:28: MOUTH [place] 00 EVERY DAY IN THE EVENING simvastatin 0 Yes TAKE 1 Jairo sreedhar 10 mg oral 2-23 TABLET BY l tablet 15:28: MOUTH [place] 00 EVERY DAY IN THE EVENING mometasone 2020-10 Yes [id number] Apply to Univers 0.1 % 2-15 area(s) 2 ity of lotion 00:00: (two) [place] 00 times Medical daily. Branch Avoid face, armpits, and groin. clobetasoL 2020-10 Yes [id number] Apply to Univers 0.05 % 2-15 area(s) 2 ity of cream 00:00: (two) [place] 00 times Medical daily. Branch mometasone 2020-10 Yes [id number] Apply to Univers 0.1 % 2-15 area(s) 2 ity of lotion 00:00: (two) [place] 00 times Medical daily. Branch Avoid face, armpits, and groin. clobetasoL 2020-10 Yes [id number] Apply to Univers 0.05 % 2-15 area(s) 2 ity of cream 00:00: (two) [place] 00 times Medical daily. Branch mometasone 2020-10 Yes [id number] Apply to Univers 0.1 % 2-15 area(s) 2 ity of lotion 00:00: (two) [place] 00 times Medical daily. Branch Avoid face, armpits, and groin. clobetasoL 2020- Yes [id number] Apply to Univers 0.05 % 2-15 area(s) 2 ity of cream 00:00: (two) [place] 00 times Medical daily. Branch mometasone 2020-10 Yes [id number] Apply to Univers 0.1 % 2-15 area(s) 2 ity of lotion 00:00: (two) [place] 00 times Medical daily. Branch Avoid face, armpits, and groin. clobetasoL 2020-10 Yes [id number] Apply to Univers 0.05 % 2-15 area(s) 2 ity of cream 00:00: (two) [place] 00 times Medical daily. Branch mometasone 2020-10 Yes [id number] Apply to Univers 0.1 % 2-15 area(s) 2 ity of lotion 00:00: (two) [place] 00 times Medical daily. Branch Avoid face, armpits, and groin. clobetasoL 2020- Yes [id number] Apply to Univers 0.05 % 2-15 area(s) 2 ity of cream 00:00: (two) [place] 00 times Medical daily. Branch mometasone 2020-10 Yes [id number] Apply to Univers 0.1 % 2-15 area(s) 2 ity of lotion 00:00: (two) [place] 00 times Medical daily. Branch Avoid face, armpits, and groin. clobetasoL 2020-10 Yes [id number] Apply to Univers 0.05 % 2-15 area(s) 2 ity of cream 00:00: (two) [place] 00 times Medical daily. Branch gabapentin 2020-10 Yes 0 Memoria 300 MG Oral 1-22 Refill(s) l Capsule 15:24: meclizine 2020-10 Yes 0 Memoria 25 mg oral 1-22 Refill(s) l tablet 15:24: gabapentin 2020-10 Yes 0 Memoria 300 MG Oral 1-22 Refill(s) l Capsule 15:24: [place] 00 meclizine 2020-10 Yes 0 Memoria 25 mg oral 1-22 Refill(s) l tablet 15:24: atorvastati Yes 20 mg = 1 M emoria n 20 MG 8-20 tab, PO, l Oral Tablet 20:17: Bedtime, # [place] [Lipitor] 00 30 tab, 2 Refill(s), [id number], 165.1, cm, 05/23/21 14:27:00 CDT, Height, 75.455, kg, 05/23/21 14:27:00 CDT, Weight atorvastati Yes 20 mg = 1 M emoria n 20 MG 8-20 tab, PO, l Oral Tablet 20:17: Bedtime, # [place] [Lipitor] 00 30 tab, 2 Refill(s), Pharmacy: [facility] #[id number], 165.1, cm, 05/23/21 14:27:00 CDT, Height, 75.455, [...] Source Systolic (mm Hg) 2022-05-27 14:11:00 Jairo Baeza Diastolic (mm Hg) 2022-05-27 14:11:00 Dulce Baeza Heart Rate 2022-05-27 14:11:00 [facility] Resp[facility] Rate 2022-05-27 14:11:00 Diaz al Aryan Weight 2022-05-27 14:11:00 [facility] Systolic (mm Hg) 2021-11-26 15:18:00 Jairo Baeza Diastolic (mm Hg) 2021-11-26 15:18:00 Mem orial Aryan Heart Rate 2021-11-26 15:18:00 [facility] [place] Respitory Rate 2021-11-26 15:18:00 Memori al Aryan Height 2021-11-26 15:18:00 167.64 cm [facility] [place] Weight 2021-11-26 15:18:00 [facility] Aryan BMI Calculated 2021-11-26 15:18:00 Memori al [place]ryan Systolic (mm Hg) 2021-08-25 15:12:00 Jairo rial [place] Diastolic (mm Hg) 2021-08-25 15:12:00 Mem orial [place] Heart Rate 2021-08-25 15:12:00 [facility] [place] Respitory Rate 2021-08-25 15:12:00 Memori al [place]ryan Height 2021-08-25 15:12:00 160.02 cm [facility] [place] Weight 2021-08-25 15:12:00 [facility] [place] BMI Calculated 2021-08-25 15:12:00 Memori al [place]ryan Systolic (mm Hg) 2021-05-23 19:27:00 Jairo rial [place] Diastolic (mm Hg) 2021-05-23 19:27:00 Mem orial [place]ryan Heart Rate 2021-05-23 19:27:00 [facility] [place] Respitory Rate 2021-05-23 19:27:00 Memori al [place] Height 2021-05-23 19:27:00 165.1 cm [facility] [place] Weight 2021-05-23 19:27:00 [facility] [place] BMI Calculated 2021-05-23 19:27:00 Memori al Aryan Procedures Procedure Date / Time Performing Clinician Source Performed PARTIAL THROMBOPLASTIN 2022-06-01 17:22:00 [place] [facility] TIME (PTT) [place] PROTHROMBIN TIME WITH INR 2022-06-01 17:22:00 [place] Dinorah [facility] [place] COMPREHENSIVE METABOLIC 2022-06-01 17:22:00 Daniel, [facility] PANEL [place] HC COMPLETE BLD COUNT 2022-06-01 17:22[facility] [place] ESTIMATED GFR 2022-06-01 17:22:00 [facility] [place] MRI UPPER EXTREMITY 2022-05-13 21:04:54 [facility] EXTERNAL STUDY [place] AUTHORIZATION FOR RELEASE 2022-03-08 05:01:00 Doctor Un[facility] XR SHOULDER 2+ VW LEFT 2021-10-30 18:57:[address] [facility] Plan of Care Planned Activity Planned Date Details Comments Source Future Scheduled 2022-06-11 INFLUENZA VACCINE Method [facility] Hospital Test 08:27:28 [code = INFLUENZA VACCINE] Future Scheduled 2022-06-11 HEPATITIS B VACCINES Met [facility] Test 08:27:28 (1 of 3 - 3-dose series) [code = HEPATITIS B VACCINES (1 of 3 - 3-dose series)] Future Scheduled 2022-06-11 COVID-19 VACCINE (#1) [facility] Test 08:27:28 [code = COVID-19 VACCINE (#1)] Future Scheduled 2022-06-11 Hepatitis C screening [facility] Test 08:27:28 (procedure) [code = 659140136] Future Scheduled 2022-06-11 COLONOSCOPY SCREENING [facility] Test 08:27:28 [code = COLONOSCOPY SCREENING] Future Scheduled 2022-06-11 SHINGLES VACCINES (1 Met [facility] Test 08:27:28 of 2) [code = SHINGLES VACCINES (1 of 2)] Future Scheduled 2022-06-11 INFLUENZA VACCINE Method [facility] Hospital Test 08:27:28 [code = INFLUENZA VACCINE] Future Scheduled 2022-06-11 HEPATITIS B VACCINES Met [facility] Test 08:27:28 (1 of 3 - 3-dose series) [code = HEPATITIS B VACCINES (1 of 3 - 3-dose series)] Future Scheduled 2022-06-11 COVID-19 VACCINE (#1) [facility] Hospital Test 08:27:28 [code = COVID-19 VACCINE (#1)] Future Scheduled 2022-06-11 Hepatitis C screening [facility] Test 08:27:28 (procedure) [code = 657754713] Future Scheduled 2022-06-11 COLONOSCOPY SCREENING [facility] Test 08:27:28 [code = COLONOSCOPY SCREENING] Future Scheduled 2022-06-11 SHINGLES VACCINES (1 Met [facility] Test 08:27:28 of 2) [code = SHINGLES VACCINES (1 of 2)] Future Scheduled 2022-06-05 HEPATITIS B VACCINES Met [facility] Test 15:03:14 (1 of 3 - 3-dose series) [code = HEPATITIS B VACCINES (1 of 3 - 3-dose series)] Future Scheduled 2022-06-05 COVID-19 VACCINE (#1) [facility] Test 15:03:14 [code = COVID-19 VACCINE (#1)] Future Scheduled 2022-06-05 Hepatitis C screening [facility] Test 15:03:14 (procedure) [code = [id number]] Future Scheduled 2022-06-05 COLONOSCOPY SCREENING [facility] Test 15:03:14 [code = COLONOSCOPY SCREENING] Future Scheduled 2022-06-05 SHINGLES VACCINES (1 Met [facility] Test 15:03:14 of 2) [code = SHINGLES VACCINES (1 of 2)] Future Scheduled 2022-06-05 INFLUENZA VACCINE Method [facility] Hospital Test 15:03:14 [code = INFLUENZA VACCINE] Encounters Start End Encounter Admission Attending Care Care Encounter Source Date/Time Date/Time Type Type Clinicians Facility Department ID 2022-05-19 Outpatient Adams, [facility] [id number] Common 14:17:02 Juan Carlos [facility] 2022-05-07 Outpatient Adams, [facility] [id number] Common 10:23:02 Juan Carlos [facility] 2022-03-10 Outpatient Adams, [facility] [id number] Common 12:11:00 Juan Carlos [facility] 2022-03-09 Outpatient Adams, [facility] [id number] Common 14:45:01 Juan Carlos [facility] 2022-02-09 Outpatient Adams, [facility] [id number] Common 08:24:02 Juan Carlos [facility] 2021-12-18 Outpatient Adams, [facility] [id number] Common 09:55:02 Juan Carlos [facility] 2021-10-29 Out[facility] Adams, [facility] [id number] Common 13:48:11 Juan Carlos [id number] [facility] 2021-10-29 Outpatient Adams, [facility] [id number] Common 13:47:27 Juan Carlos [id number] [facility] 2021-10-29 Outpatient Adams, [facility] [id number] Common 13:45:51 Juan Carlos [id number] [facility] 2021-10-29 Outpatient Adams, [facility] [id number] Common 13:28:02 Juan Carlos [id number] [facility] 2021-10-29 Outpatient Adams, [facility] [id number] Common 13:27:44 Juan Carlos [id number] [facility] 2021-10-29 Outpatient Adams, [facility] [id number] Common 13:16:51 Juan Carlos [id number] [facility] 2021-10-29 Outpatient Adams, [facility] [id number] Common 13:16:31 Juan Carlos [id number] [facility] 2022-09-02 2022-09-02 Outpatient MHIE MHIE [id number] Memoria 09:00:00 09:00:00 05 isidra MartinAryan 2022-09-02 2022-09-02 Outpatient MHIE MHIE [id number] Memoria 09:00:00 09:00:00 05 isidra Baeza 2022-06-01 2022-06-01 [facility], 2.840.1 [id number] Methodi 11:13:39 23:59:00 Encounter Dinorah [address]6071.1.[address] [place] 3.430.2.7 Hospit a .3.484222 l .8 2022-06-01 2022-06-01 [facility], 2.840.1 [id number] Methodi 11:13:39 23:59:00 Encounter Dinorah [address]8560.1.[address] [place] 3.430.2.7 Hospit a .3.363100 l .8 2022-06-01 2022-06-01 [facility], 1.2.840.1 [id number] 21 [id number] Methodi 10:45:00 12:57:37 Visit Dinorah 71073.1.[address] [place] 3.430.2.7 Hospit a .3.852544 l .8 2022-06-01 2022-06-01 [facility], 1.2.840.1 [id number] 21 [id number] Methodi 10:45:00 12:57:37 Visit Dinorah 10592.1.[address] [place] 3.430.2.7 Hospit a .3.017644 l .8 2022-06-01 2022-06-01 [facility], 1.2.840.1 [id number] Methodi 12:05:00 12:10:[address] [place] 3.430.2.7 Hospit a .3.827153 l .8 2022-06-01 2022-06-01 [facility], 1.2.840.1 [id number] 21 [id number] Methodi 12:05:00 12:10:[address] [place] 3.430.2.7 Hospit a .3.876456 l .8 2022-06-01 2022-06-01 Travel 1.2.840.1 1.2.297.717 8023 [id number] Methodi 00:00:00 00:00:[address] 3.430.2.7 0.2.7.3.698 Ho spita .3.525238 084.8 l .8 2022-06-01 2022-06-01 [facility], 1.2.840.1 [id number] 21 [id number] Methodi 00:00:00 00:00:00 Only Dinorah 06728.1.[address] [place] 3.430.2.7 Hospit a .3.715425 l .8 2022-06-01 2022-06-01 Orders Daniel, 1.2.840.1 [id number] 21 [id number] Methodi 00:00:00 00:00:00 Only Dinorah 29805.1.[address] [place] 3.430.2.7 Hospit a .3.647144 l .8 2022-06-01 2022-06-01 Travel 1.2.840.1 1.2.129.715 5626 [id number] Methodi 00:00:00 00:00:[address] 3.430.2.7 0.2.7.3.698 Ho spita .3.316976 084.8 l .8 2022-05-27 2022-05-28 Outpatient nullFlavo MNA [id number] Memoria 14:00:00 04:59:59 r Neurology 04 l Jarvis [place] 2022-05-27 2022-05-28 Outpatient nullFlavo MNA [id number] Memoria 14:00:00 04:59:59 r Neurology 04 l Jarvis Baeza 2022-05-27 2022-05-27 Outpatient DANIAL SotoMISCHNICANOR MISCHER [id number] 09:00:00 23:59:59 Abhijeet 04 Issac 2022-05-27 2022-05-27 Outpatient JA PERES [id number] [facility] 09:00:00 09:00:00 04 l Aryan 2022-05-27 2022-05-27 ambulatory STLMLC ST[facility]C [id number] Common 00:00:00 00:00:00 [facility] 2022-05-25 2022-05-25 ambulatory STLMLC STLMLC [id number] Common 00:00:00 00:00:00 [facility] 2022-05-22 2022-05-22 Outpatient GUU_SHENG_Y [facility] [id number] [place] 00:00:00 00:[place] [address] da [facility] Program 2022-05-21 2022-05-21 Outpatient GUU_SHENG_Y [facility]OP [facility] [id number] [place] 00:00:00 00:00:[address] [place] [address] [facility] 2022-05-21 2022-05-21 Travel 1.2.840.1 1.2.905.112 [id number] Methodi 00:00:00 00:00:[address] 3.430.2.7 0.2.7.3.698 Ho spita .3.053375 084.8 l .8 2022-05-21 2022-05-21 Travel 1.2.840.1 1.2.053.230 5542 [id number] Methodi 00:00:00 00:00:[address] 3.430.2.7 0.2.7.3.698 Ho spita .3.454930 084.8 l .8 2022-05-21 2022-05-21 ambulatory STLMLC STL[facility]C [id number] Common 00:00:00 00:00:00 [facility] 2022-05-20 2022-05-20 ambulatory STLMLC STLMLC [id number] Common 00:00:00 00:00:00 [facility] 2022-05-19 2022-05-19 ambulatory STLMLC STLMLC [id number] Common 00:00:00 00:00:00 [facility] 2022-05-12 2022-05-12 Outpatient GUU_SHENG_Y [facility] [id number] [place] 00:00:00 00:00:00 AW [address]335 [facility] 2022-05-11 2022-05-11 ambulatory STLMLC STLMLC [id number] Common 00:00:00 00:00:00 [facility] 2022-05-08 2022-05-08 ambulatory STLMLC STLMLC [id number] Common 00:00:00 00:00:00 [facility] 2022-05-05 2022-05-05 ambulatory STLMLC STLMLC [id number] Common 00:00:00 00:00:00 [facility] 2022-04-29 2022-04-29 ambulatory STLMLC STLMLC [id number] Common 00:00:00 00:00:00 [facility] 2022-04-27 2022-04-27 ambulatory STLMLC STLMLC [id number] Common 00:00:00 00:00:00 [facility] 2022-04-27 2022-04-27 ambulatory STLMLC STLMLC [id number] Common 00:00:00 00:00:00 [facility] 2022-04-08 2022-04-08 Outpatient GUU_SHENG_Y [facility] 116 357- [place] 10:56:00 10:56:00 [place] [address] [facility] 2022-04-06 2022-04-06 Outpatient GUU_SHENG_Y [facility] 116 357- [place] 11:51:00 11:51:00 [place] 42705 [facility] 2022-03-09 2022-03-09 ambulatory STLMLC STLMLC [id number] Common 00:00:00 00:00:00 [facility] 2022-03-08 2022-03-08 Orders Doctor SEMAJ 1.2.840.114 [id number] Univers 00:00:00 00:00:00 Only Unassigned, STEFFEN 350.1.13.10 ity of [place] [facility] 4.2.7.2.686 Mumtaz as [id number] [place] [address] Branch 2022-03-04 2022-03-04 Outpatient GUU_SHENG_Y [facility] 116 [id number]- [place] 11:27:00 11:27:00 [place] [address]82 [facility] 2022-02-18 2022-02-18 ambulatory STLMLC STLMLC [id number] Common 00:00:00 00:00:00 [facility] 2022-02-18 2022-02-18 ambulatory STLMLC STLMLC [id number] Common 00:00:00 00:00:00 [facility] 2022-02-18 2022-02-18 ambulatory STLMLC STLMLC [id number] Common 00:00:00 00:00:00 [facility] 2022-02-10 2022-02-10 ambulatory STLMLC STLMLC [id number] Common 00:00:00 00:00:00 [facility] 2022-02-05 2022-02-05 ambulatory STLMLC STLMLC [id number] Common 00:00:00 00:00:00 [facility] 2022-02-02 2022-02-02 ambulatory STLMLC STLMLC [id number] Common 00:00:00 00:00:00 [facility] 2022-01-14 2022-01-14 Outpatient GUU_SHENG_Y [facility] [id number] [place] 03:25:00 03:25:00 AW [facility] 2022-01-13 2022-01-13 Outpatient GUU_SHENG_Y [facility] [id number] [place] 10:07:00 10:07:00 [place] [address] [facility] 2021-12-22 2021-12-22 Outpatient GUU_SHENG_Y [facility]OP [facility] [id number] [place] 11:02:00 11:02:00 AW 59214 [facility] 2021-12-10 2021-12-10 Outpatient GUU_SHENG_Y [facility]HOP [facility]OP [id number] [place] 11:08:00 11:08:00 AW [facility] 2021-11-26 2021-11-27 Outpatient nullFlavo MNA [id number] Memoria 15:15:00 05:59:59 r Neurology 03 l Venangocharlene Martinann 2021-11-26 2021-11-27 Outpatient nullFlavo MNA [id number] Memoria 15:15:00 05:59:59 r Neurology 03 l Jarvis Baeza 2021-11-26 2021-11-26 Outpatient DIANNE Soto [id number] 09:15:00 23:59:59 Abhijeet [place]en[place] 2021-11-26 2021-11-26 [id number] Memoria 09:15:00 09:15:00 03 isidra Baeza 2021-11-21 2021-11-21 Outpatient GUU_SHENG_Y [facility] [id number] [place] 01:31:00 01:31:00 AW [facility] 2021-11-17 2021-11-17 [employer] Manager Lab, Ang - Db [facility] 1.2.840.1 14 [id number] Univers 10:30:00 10:45:00 [facility] 350.1.13.10 [facility] 4.2.7.2.686 Mumtaz as PATRICIA?BLEA [phone] [address] MEDICAL OFFICE BUILDING 2021-11-17 2021-11-17 Outpatient R ABDIRAHMAN [facility] [id number] Univers 10:30:00 10:30:00 [facility] 2021-11-17 2021-11-17 Outpatient R [facility] [id number] Univers 10:30:00 10:30:00 [id number] [facility] 2021-11-07 2021-11-07 Outpatient GUU_SHENG_Y [facility] [id number] [place] 09:42:00 09:42:00 AW [facility] 2021-11-06 2021-11-06 Outpatient GUU_SHENG_Y [facility]OP [facility] [id number] [place] 06:28:00 06:28:00 AW [facility] 2021-11-05 2021-11-05 ambulatory STLMLC STLMLC [id number] Common 00:00:00 00:00:00 [facility] 2021-11-04 2021-11-04 Telephone WAI Pat 1.2.840.114 [id number] Univers 00:00:00 00:00:00 Tiffanie Y HEALTH 350.1.13.10 i ty of [facility] [place]2.[place] [id number] [address] 2021-10-30 2021-10-30 [facility] WAI Mcdermott 1.2.840.114 [id number] Univers 12:32:56 23:59:00 Encounter Vasu Hafsa Moya HEALTH 350.1.13.10 ity of [place] [id number] [facility] [address] 2021-10-30 2021-10-30 Office [facility] 1.2.840. 114 [id number] Univers 11:15:00 12:31:56 Visit Gianna Jc Solomon HEALTH 350.1.13.10 ity of [place] [id number] [facility] 0[address] Branch 2021-10-30 2021-10-30 Outpatient Tavon BLANCHARD [facility] [id number] Univers 11:15:00 12:31:56 JC [facility] 2021-10-13 2021-10-13 Outpatient Tavon [facility] [id number] Univers 10:15:00 10:11:02 [facility] 2021-10-08 2021-10-08 Outpatient Tavon [facility] [id number] Univers 10:00:00 11:18:31 [facility] 2021-10-01 2021-10-01 ambulatory STLMLC STLMLC [id number] Common 00:00:00 00:00:00 [facility] 2021-09-29 2021-09-29 ambulatory STLMLC STLMLC [id number] Common 00:00:00 00:00:00 [facility] 2021-09-19 2021-09-19 Outpatient GUU_SHENG_Y [facility] 116 [id number]- [place] 01:51:00 01:51:00 AW 87202 [facility] 2021-09-18 2021-09-18 Outpatient GUU_SHENG_Y [facility] 116 [id number] [place] 03:47:00 03:47:00 [place] 35548 [facility] 2021-09-17 2021-09-17 [facility]patient [facility] [id number] Univers 09:30:00 10:57:28 [facility] 2021-08-25 2021-08-26 Outpatient nullFlavo MNA [id number] Memoria 15:15:00 05:59:59 r Neurology 02 isidra Baeza 2021-08-25 2021-08-26 Outpatient nullFlavo MNA [id number] Memoria 15:15:00 05:59:59 r Neurology 02 isidra Baeza 2021-08-25 2021-08-25 Outpatient ANNIKA SotoSCHER MHMISCHER [id number] 09:15:00 23:59:59 Abhijeet 02 Issac 2021-08-25 2021-08-25 Outpatient MHIE MHIE [id number] Memoria 09:15:00 09:15:00 02 isidra Baeza 2021-07-09 2021-07-09 Ambulatory nullFlavo MNA [id number] Memoria 14:15:00 14:15:00 Pre-Reg r Neurology 01 isidra Baeza 2021-07-09 2021-07-09 Ambulatory nullFlavo MNA [id number] Memoria 14:15:00 14:15:00 Pre-Reg r Neurology 01 isidra Baeza 2021-07-09 2021-07-09 Outpatient MHIE MHIE [id number] Memoria 09:15:00 09:15:00 01 isidra Baeza 2021-07-09 2021-07-09 Outpatient ANNIKA SotoSCHNICANOR MISCHER [id number] 09:15:00 09:15:00 Abhijeet 01 Issac 2021-07-09 2021-07-09 [facility] [id number] Common 00:00:00 00:00:00 [facility] 2021-07-02 2021-07-02 Outpatient GUU_SHENG_Y [facility] [id number] [place] 11:34:00 11:34:00 AW 57463 da [facility] Out[facility] Program 2021-06-30 2021-06-30 [facility] [id number] Common 00:00:00 00:00:00 [facility] 2021-06-25 2021-06-25 Outpatient GUU_SHENG_Y [facility] [id number] [place] 10:44:00 10:44:00 AW 06946 [facility] 2021-06-23 2021-06-23 Outpatient GUU_SHENG_Y [facility] [id number] [place] 03:14:00 03:14:00 AW [id number] [facility] 2021-06-06 2021-06-06 Outpatient [facility] [id number] Common 00:00:00 00:00:00 [facility] 2021-05-23 2021-05-24 Outpatient nullFlavo MNA [id number] [facility] 20:15:00 04:59:59 r Neurology 00 l Jarivs Baeza 2021-05-23 2021-05-24 Outpatient nullFlavo MNA [id number] [facility] 20:15:00 04:59:59 r Neurology 00 l Jarvis Baeza 2021-05-23 2021-05-23 [id number] 15:15:00 23:59:59 Abhijeet 00 Issac 2021-05-23 2021-05-23 Outpatient JA PERES [id number] [facility] 15:15:00 15:15:00 00 l Aryan 2021-05-23 2021-05-23 Outpatient GUU_SHENG_Y [facility] [id number] [place] 02:20:00 02:20:[place] [id number] [facility] 2021-05-21 2021-05-21 Outpatient GUU_SHENG_Y [facility] [id number] [place] 10:55:00 10:55:00 [place] [id number] [facility] 2021-05-05 2021-05-05 Outpatient [facility] [id number] Common 00:00:00 00:00:00 [facility] 2021-04-22 2021-04-22 Outpatient [facility] [id number] Common 00:00:00 00:00:00 [facility] 2021-03-21 2021-03-21 Outpatient [facility]LMLC ST[facility] [id number] Common 00:00:00 00:00:00 [facility] Results This patient has no known results.
[2022-06-14] MEDS ORDERED: ACETAMINOPHEN 500 MG TAB ONE (11:26)
[2022-06-14] MEDS ORDERED: NA CHLORIDE 0.9% 100 ML ONE (11:28)
[2022-06-14] MEDS ORDERED: ONDANSETRON 4 MG/2 ML VIAL ONE (11:28)
[2022-06-14] MEDS ORDERED: FENTANYL CITR 100 MCG/2 ML ONE (11:28)
[2022-06-14] MEDS ORDERED: PIPERACIL/TAZO 3.375 GM VIAL IV ONE (11:29)
[2022-06-14] MEDS ORDERED: NA CHLORIDE 0.9% 1,000 ML ONE (11:29)
--- NOTE | 2022-06-14 11:55 | EDPHYS ---
Physician Documentation [facility] Name: Jose Ny Age: 61 yrs Sex: Male : 1960 Arrival Date: 06/14/2022 Time: 10:27 Bed 20 Private MD: [facility] ED Physician Luis Dickson HPI: 06/14 11:48 This 61 yrs old Male presents to ER via Wheelchair with complaints of kaylynn Decreased Appetite, Nausea. 11:48 The patient presents to the emergency department with nausea, vomiting, that is kaylynn intermittent. Onset: The symptoms/episode began/occurred yesterday. Possible causes: unknown. The symptoms are aggravated by movement, The symptoms are alleviated by nothing. 11:48 The patient or guardian complains of decreased range of motion, pain, that is chronic. kaylynn left shoulder. Context: The problem was sustained at an unknown site, resulted from an unknown reason, The patient experiences decreased range of motion, The patient notes a deformity. Modifying factors: the symptoms are alleviated by nothing. remaining still, The symptoms are aggravated by nothing. Associated signs and symptoms: Pertinent positives:. Historical: - Allergies: 11:00 No Known Allergies; jl7 - Home Meds: 11:00 simvastatin 10 mg Oral tab 1 tab once daily [Active]; aspirin 81 mg Oral cap 1 cap once jl7 daily [Active]; - PMHx: 11:00 CVA; Hypercholesterolemia; Vertigo; jl7 - Immunization history:: Client reports having NOT received the Covid vaccine. - Social history:: Smoking status: Patient denies any tobacco usage or history of. - Family history:: not pertinent. ROS: 11:48 Constitutional: Negative for fever, chills, and weight loss, Eyes: Negative for injury, kaylynn pain, redness, and discharge, ENT: Negative for injury, pain, and discharge, Neck: Negative for injury, pain, and swelling, Cardiovascular: Negative for chest pain, palpitations, and edema, Respiratory: Negative for shortness of breath, cough, wheezing, and pleuritic chest pain, Abdomen/GI: Negative for abdominal pain, nausea, vomiting, diarrhea, and constipation, Back: Negative for injury and pain, : Negative for injury, bleeding, discharge, and swelling, Skin: Negative for injury, rash, and discoloration, Neuro: Negative for headache, weakness, numbness, tingling, and seizure, Psych: Negative for depression, anxiety, suicide ideation, homicidal ideation, and hallucinations, Allergy/Immunology: Negative for hives, rash, and allergies, Endocrine: Negative for neck swelling, polydipsia, polyuria, polyphagia, and marked weight changes, Hematologic/Lymphatic: Negative for swollen nodes, abnormal bleeding, and unusual bruising. 11:48 MS/extremity: Positive for decreased range of motion, pain, swelling, tenderness, of the anterior aspect of left shoulder and posterior aspect of left shoulder. Exam: 11:48 Head/Face: Normocephalic, atraumatic. Eyes: Pupils equal round and reactive to light, kaylynn extra-ocular motions intact. Lids and lashes normal. Conjunctiva and sclera are non-icteric and not injected. Cornea within normal limits. Periorbital areas with no swelling, redness, or edema. ENT: Nares patent. No nasal discharge, no septal abnormalities noted. Tympanic membranes are normal and external auditory canals are clear. Oropharynx with no redness, swelling, or masses, exudates, or evidence of obstruction, uvula midline. Mucous membranes moist. Neck: Trachea midline, no thyromegaly or masses palpated, and no cervical lymphadenopathy. Supple, full range of motion without nuchal rigidity, or vertebral point tenderness. No Meningismus. Chest/axilla: Normal chest wall appearance and motion. Nontender with no deformity. No lesions are appreciated. Cardiovascular: Regular rate and rhythm with a normal S1 and S2. No gallops, murmurs, or rubs. Normal PMI, no JVD. No pulse deficits. Respiratory: Lungs have equal breath sounds bilaterally, clear to auscultation and percussion. No rales, rhonchi or wheezes noted. No increased work of breathing, no retractions or nasal flaring. Abdomen/GI: Soft, non-tender, with normal bowel sounds. No distension or tympany. No guarding or rebound. No evidence of tenderness throughout. Back: No spinal tenderness. No costovertebral tenderness. Full range of motion. Skin: Warm, dry with normal turgor. Normal color with no rashes, no lesions, and no evidence of cellulitis. Neuro: Awake and alert, GCS 15, oriented to person, place, time, and situation. Cranial nerves II-XII grossly intact. Motor strength 5/5 in all extremities. Sensory grossly intact. Cerebellar exam normal. Normal gait. Psych: Awake, alert, with orientation to person, place and time. Behavior, mood, and affect are within normal limits. 11:48 Musculoskeletal/extremity: ROM: limited active range of motion due to pain, limited passive range of motion due to pain, Circulation is intact in all extremities. Sensation intact. Compartment Syndrome exam of affected extremity: is normal. Joints: the left shoulder displays limited range of motion, pain at rest, painful range of motion, swelling, tenderness. 11:58 ECG was reviewed by the Attending Physician. kaylynn Vital Signs: 10:55 BP 161 / 83; Pulse 82; Resp 17; Temp 101.3; Pulse Ox 97% ; Weight 70.76 kg; Height 5 jl7 ft. 9 in. (175.26 cm); 12:32 BP 108 / 67; Pulse 88; Resp 18; Pulse Ox 100% on R/A; bm7 14:50 BP 162 / 93; Pulse 80; Resp 16; Temp 99.1(TE); Pulse Ox 100% on R/A; Pain 4/10; bm7 16:49 BP 160 / 88; Pulse 78; Resp 16; Pulse Ox 100% on R/A; bm7 10:55 Body Mass Index 23.04 (70.76 kg, 175.26 cm) jl7 MDM: 11:02 Patient medically screened. [facility] 11:51 Differential diagnosis: DJD, tendonitis, viral gastroenteritis, gastroenteritis. Data kaylynn reviewed: vital signs, nurses notes, lab test result(s), EKG, radiologic studies, CT scan, plain films. Data interpreted: conveyor monitor: rate is 82 beats/min, rhythm is regular, Pulse oximetry: on room air is 97 %. Test interpretation: by ED physician or midlevel provider: ECG, plain radiologic studies. Counseling: I had a detailed discussion with the patient and/or guardian regarding: the historical points, exam findings, and any diagnostic results supporting the discharge/admit diagnosis, lab results, radiology results, the need to transfer to another facility, for higher level of care, [facility] does not immediately have the required specialist, pt choice is Dr Daniel. 14:19 Physician consultation: John Alejandro MD after a discussion of the case, a [facility] recommendation for transfer for higher level of care is made, dr munson at [facility] , keep there your doc can do it. 06/14 11:09 Order name: Basic Metabolic Panel; Complete Time: 13:55 [facility] 06/14 11:09 Order name: CBC with Diff; Complete Time: 12:49 [facility] 06/14 11:09 Order name: LFT's; Complete Time: 13:55 [facility] 06/14 11:09 Order name: Magnesium; Complete Time: 13:55 [facility] 06/14 11:09 Order name: NT PRO-BNP; Complete Time: 13:55 [facility] 06/14 11:09 Order name: PT-INR; Complete Time: 12:49 [facility] 06/14 11:09 Order name: Troponin HS; Complete Time: 13:55 [facility] 06/14 11:09 Order name: Blood Culture Adult (2) [facility] 06/14 11:09 Order name: Lactate; Complete Time: 12:49 [facility] 06/14 11:09 Order name: Urine Microscopic Only; Complete Time: 13:55 [facility] 06/14 11:09 Order name: SARS RAPID; Complete Time: 12:49 [facility] 06/14 11:09 Order name: Lipase; Complete Time: 13:55 [facility] 06/14 13:24 Order name: Urine Dipstick-Ancillary; Complete Time: 13:55 [facility] 06/14 16:37 Order name: Body Fluid Cell Count [facility] 06/14 11:09 Order name: XRAY Chest (1 view); Complete Time: 12:49 [facility] 06/14 11:09 Order name: EKG; Complete Time: 11:10 [facility] 06/14 11:09 Order name: Cardiac monitoring; Complete Time: 12:32 [facility] 06/14 11:09 Order name: Shoulder Left (2 View) XRAY; Complete Time: 12:49 [facility] 06/14 11:34 Order name: CT Chest, Abdomen, Pelvis - W/Contrast; Complete Time: 13:55 [facility] 06/14 16:37 Order name: Body Fluid Crystals [facility] 06/14 16:37 Order name: GLUCOSE, SYNOVIAL FLUID [facility] 06/14 16:37 Order name: TOTAL PROTEIN, SYNOVIAL FLUID [facility] 06/14 16:37 Order name: Body Fluid Culture [facility] 06/14 11:09 Order name: EKG - Nurse/Tech; Complete Time: 11:44 [facility] 06/14 11:09 Order name: IV Saline Lock; Complete Time: 12:32 [facility] 06/14 11:09 Order name: Labs collected and sent; Complete Time: 12:32 [facility] 06/14 11:09 Order name: O2 Per Protocol; Complete Time: 11:44 [facility] 06/14 11:09 Order name: O2 Sat Monitoring; Complete Time: 11:44 [facility] 06/14 11:09 Order name: Urine Dipstick-Ancillary (obtain specimen); Complete Time: 16:41 [facility] 06/14 15:52 Order name: Misc. Order: set up for joint aspiration; Complete Time: 15:56 [facility] EC:58 Rate is 70 beats/min. Rhythm is regular. QRS [place] is Normal. CA interval is normal. QRS kaylynn interval is normal. QT interval is normal. No Q waves. T waves are Normal. No ST changes noted. Clinical impression: Normal ECG and No evidence of ischemia. Interpreted by me. Reviewed by me. Administered Medications: 12:28 Drug: fentaNYL (PF) 50 mcg Route: IVP; Site: left antecubital; bm7 14:19 Follow up: Response: Pain is unchanged, physician notified bm7 12:28 Drug: Zofran (Ondansetron) 4 mg Route: IVP; Site: left antecubital; bm7 14:19 Follow up: Response: Nausea is decreased bm7 12:29 Drug: NS 0.9% 1000 ml Route: IV; Rate: 1 bolus; Site: left antecubital; bm7 14:19 Follow up: IV Status: Completed infusion bm7 12:29 Drug: Tylenol 1000 mg Route: PO; bm7 14:19 Follow up: Response: Temperature is decreased bm7 12:29 Drug: Zosyn (piperacillin-tazobactam) 3.375 grams Route: IVPB; Infused Over: 60 mins; bm7 Site: left antecubital; 14:19 Follow up: Response: No adverse reaction; IV Status: Completed infusion bm7 14:18 Drug: [place] (HYDROcodone-acetaminophen) 10 mg-325 mg 1 tabs Route: PO; bm7 16:37 Follow up: Response: Pain is decreased bm7 16:37 Drug: vancoMYCIN 1 grams Route: IVPB; Infused Over: 2 hrs; Site: left antecubital; bm7 17:06 Follow up: IV Status: Infusion continued bm7 Disposition Summary: 06/14/22 11:55 Transfer Ordered Reason: Higher level of care kaylynn Condition: Stable kaylynn Problem: an ongoing problem kaylynn Symptoms: have worsened kaylynn Transfer Location: [facility](06/14/22 15:46) kaylynn Accepting Physician: to [facility](06/14/22 17:07) bm7 Diagnosis - Fever, unspecified kaylynn - Pain in left shoulder - Effusion kaylynn - Vomiting kaylynn Forms: - Medication Reconciliation Form kaylynn - SBAR form kaylynn Signatures: Dispatcher [employer] EDLuis Mckeon MD MD cha Smirch, Shelby, RN RN ss Kamron Hernandez RN RN jl7 Park Landon RN RN bm7 Corrections: (The following items were deleted from the chart) 12:52 11:55 to Eric Pat kaylynn kaylynn 12:52 11:55 [facility] kaylynn kaylynn 14:17 12:52 to [facility] kaylynn kaylynn 14:17 12:52 [facility] kaylynn 15:46 14:17 to [facility] kaylynn kaylynn 15:46 14:17 [facility] kaylynn kaylynn 17:07 15:[address] [facility] kaylynn bm7
--- NOTE | 2022-06-14 11:55 | ER ---
Nurse's Notes [facility] Name: Jose Ny Age: 61 yrs Sex: Male : 1960 Arrival Date: 06/14/2022 Time: 10:27 Bed 20 Private MD: Juan Carlos Adams Diagnosis: Fever, unspecified;Pain in left shoulder-Effusion;Vomiting Presentation: 06/14 10:55 Chief complaint: Sister, Elena reports pt seen on Wednesday and a fentanyl patch was jl7 placed on him and he's been nauseous since then. He can't take the pain medications because he is nauseous. Currently referred to orthopedic oncology for left shoulder. Coronavirus screen: fever, Client presents with at least one sign or symptom that may indicate coronavirus-19. Standard/surgical mask placed on the client. Provider contacted for isolation considerations. Ebola Screen: No symptoms or risks identified at this time. Initial Sepsis Screen: Does the patient meet any 2 criteria? No. Patient's initial sepsis screen is negative. Does the patient have a suspected source of infection? No. Patient's initial sepsis screen is negative. Risk Assessment: Do you want to hurt yourself or someone else? Patient reports no desire to harm self or others. Onset of symptoms is unknown. 10:55 Method Of Arrival: Wheelchair jl7 10:55 Acuity: DREAD 3 jl7 Triage Assessment: 11:00 General: Appears in no apparent distress. uncomfortable, Behavior is calm, cooperative, jl7 appropriate for age. Pain: Complains of pain in posterior aspect of left shoulder. GI: Reports nausea. Historical: - Allergies: 11:00 No Known Allergies; jl7 - Home Meds: 11:00 simvastatin 10 mg Oral tab 1 tab once daily [Active]; aspirin 81 mg Oral cap 1 cap once jl7 daily [Active]; - PMHx: 11:00 CVA; Hypercholesterolemia; Vertigo; jl7 - Immunization history:: Client reports having NOT received the Covid vaccine. - Social history:: Smoking status: Patient denies any tobacco usage or history of. - Family history:: not pertinent. Screenin:06 Abuse screen: Denies threats or abuse. Nutritional screening: No deficits noted. bm7 Tuberculosis screening: No symptoms or risk factors identified. Fall Risk None identified. Assessment: 11:06 General: Appears in no apparent distress. uncomfortable, Behavior is calm, cooperative, bm7 appropriate for age. Pain: Complains of pain in anterior aspect of left shoulder. Neuro: No deficits noted. Cardiovascular: No deficits noted. Respiratory: No deficits noted. GI: Abdomen is flat, non-distended, Abd is soft and non tender X 4 quads. Reports nausea. : No deficits noted. No signs and/or symptoms were reported regarding the genitourinary system. EENT: No deficits noted. No signs and/or symptoms were reported regarding the EENT system. Derm: No deficits noted. No signs and/or symptoms reported regarding the dermatologic system. Musculoskeletal: Reports pain in anterior aspect of left shoulder. 12:29 Reassessment: No changes from previously documented assessment. Patient and/or family bm7 updated on plan of care and expected duration. Pain level reassessed. Patient is alert, oriented x 3, equal unlabored respirations, skin warm/dry/pink. Vital Signs: 10:55 BP 161 / 83; Pulse 82; Resp 17; Temp 101.3; Pulse Ox 97% ; Weight 70.76 kg; Height 5 jl7 ft. 9 in. (175.26 cm); 12:32 BP 108 / 67; Pulse 88; Resp 18; Pulse Ox 100% on R/A; bm7 14:50 BP 162 / 93; Pulse 80; Resp 16; Temp 99.1(TE); Pulse Ox 100% on R/A; Pain 4/10; bm7 16:49 BP 160 / 88; Pulse 78; Resp 16; Pulse Ox 100% on R/A; bm7 10:55 Body Mass Index 23.04 (70.76 kg, 175.26 cm) 7 ED Course: 10:27 Patient arrived in ED. mr 10:27 Juan Carlos Adams, is Private Physician. mr 10:28 Luis Dickson MD is Attending Physician. [facility] 10:50 Kamron Hernandez, VASHTI is Primary Nurse. [facility] 10:51 Kamron Hernandez, VASHTI is Primary Nurse. jl7 11:00 Triage completed. jl7 11:00 Arm band placed on right wrist. jl7 11:06 Patient has correct armband on for positive identification. Placed in gown. Bed in low bm7 position. Call light in reach. Side rails up X2. Adult w/ patient. Client placed on continuous cardiac and pulse oximetry monitoring. NIBP monitoring applied. 12:29 No provider procedures requiring assistance completed. bm7 12:30 No apparent distress. Resting quietly. Awaiting lab results. bm7 12:30 Initial lab(s) drawn, by me, sent to lab. First set of blood cultures drawn by me, bm7 Second set of blood cultures drawn EKG done, by ED staff, reviewed by Luis Dickson MD COVROSEMARY swab sent to lab. X-ray(s) taken. Inserted saline lock: 20 gauge in left antecubital area, using aseptic technique. Blood collected. Patient maintains SpO2 saturation greater than 95% on room air. 12:33 XRAY Chest (1 view) In Process Unspecified. EDMS 12:33 Shoulder Left (2 View) XRAY In Process Unspecified. EDMS 12:36 initiated a transfer Mylin from the [facility] Transfer [place]. eb 12:44 per Mydemetria from the [facility] they will have to decline the patient in eb transfer due to being at capacity. 12:[address] via stretcher. bm7 12:58 CT Chest, Abdomen, Pelvis - W/Contrast In Process Unspecified. EDMS 13:12 initiated a transfer Paige Adame Rn from the [facility]. eb 13:55 connected the ortho mobile sales consultant for [facility] with Dr. Dickson for patient transfer eb consultation. 14:[address] Dickson with Cynthia from the [facility].eb 14:26 per Cynthia [facility] with have to decline the patient in transfer due to them eb being at capacity/ she will try the [facility]. 14:37 connected the hospitalist mobile sales consultant for [facility] with Dr. Dickson for eb patient transfer consultation. 14:49 Assisted with urinal. bm7 15:[address] Katz the general surgeon mobile sales consultant for [facility] with eb Dr. Dickson for patient transfer consultation. 15:08 [facility] Denied the patient due to orthopedic mobile sales consultant denying. eb 15:15 initiated a transfer with Sharron from the [facility] transfer center. eb 15:18 Cynthia from [facility] called to decline the patient / [facility] is at capacity. 15:[address] Pacheco the hospitalist mobile sales consultant for [facility] with Dr. Dickson for eb patient transfer consultation. 15:46 administrative approval given by Ligia Hankins/ patient has been accepted to [facility] 110 [id number]/ Dr. Pacheco has accepted the patient in transfer/ report to be called to [phone]. 16:19 Surgical consent explained by staff, explained by physician, signed by guardian. bm7 16:19 Assist provider with aspiration of left shoulder using 18 gauge needle, Lidocaine, bm7 fluid removed was bloody, Specimen sent to lab. Removed 100 ml's of fluid Set up for procedure. Performed by Luis Dickson MD Dressed with band aid, Patient tolerated well. 17:05 Patient transferred, IV remains in place. bm7 Administered Medications: 12:28 Drug: fentaNYL (PF) 50 mcg Route: IVP; Site: left antecubital; bm7 14:19 Follow up: Response: Pain is unchanged, physician notified bm7 12:28 Drug: Zofran (Ondansetron) 4 mg Route: IVP; Site: left antecubital; bm7 14:19 Follow up: Response: Nausea is decreased bm7 12:29 Drug: NS 0.9% 1000 ml Route: IV; Rate: 1 bolus; Site: left antecubital; bm7 14:19 Follow up: IV Status: Completed infusion bm7 12:29 Drug: Tylenol 1000 mg Route: PO; bm7 14:19 Follow up: Response: Temperature is decreased bm7 12:29 Drug: Zosyn (piperacillin-tazobactam) 3.375 grams Route: IVPB; Infused Over: 60 mins; bm7 Site: left antecubital; 14:19 Follow up: Response: No adverse reaction; IV Status: Completed infusion bm7 14:18 Drug: [place] (HYDROcodone-acetaminophen) 10 mg-325 mg 1 tabs Route: PO; bm7 16:37 Follow up: Response: Pain is decreased bm7 16:37 Drug: vancoMYCIN 1 grams Route: IVPB; Infused Over: 2 hrs; Site: left antecubital; bm7 17:06 Follow up: IV Status: Infusion continued bm7 Medication: 11:06 VIS not applicable for this client. bm7 Output: 14:49 Urine: 700ml (Voided); Total: 700ml. bm7 Outcome: 11:55 ER care complete, transfer ordered by MD. chaidez 17:05 Transferred by private ambulance to [facility]. bm7 17:05 Condition: improved 17:05 Discharge instructions given to patient, family, Instructed on the need for transfer, Demonstrated understanding of instructions. 17:07 Patient left the ED. bm7 Signatures: Dispatcher [employer] EDMS Luis Dickson MD MD cha Rivera, Mary mr LealKamron, RN RN jl7 Dana Bonilla Brittany, RN RN bm7
[2022-06-14 12:32] LABS: Absolute Lymphocytes (CBC) 1.3 K/uL (0.7-4.9); Hematocrit 38.9 % (39.6-49.0); Lymphocytes % 21.9 % (15.3-44.8); MCV 79.5 fL (80-100); MPV 7.9 fL (7.6-11.3); RBC Red Blood Cell Count 4.89 M/uL (4.33-5.43)
[2022-06-14 12:33] LABS: Protime INR 1.28
--- NOTE | 2022-06-14 12:40 | RAD REPORT ---
EXAM DESCRIPTION: RAD - Chest Single View - 06/14/2022 12:32 pm CLINICAL HISTORY: COUGH Chest pain. COMPARISON: Abdomen 1 View (KUB) dated 06/11/2022; Chest Single View dated 06/11/2022; Chest Pa And Lat (2 Views) dated 08/11/2021; Shoulder Left Wo Cont dated 05/13/2022; Shoulder Left 2 View dated 2; Head Brain Wo Cont dated 06/11/2022 FINDINGS: Portable technique limits examination quality. The lungs are emphysematous but grossly clear. The heart is normal in size. No displaced fractures. IMPRESSION: Mild COPD.
--- NOTE | 2022-06-14 12:42 | RAD REPORT ---
EXAM DESCRIPTION: RAD - Shoulder Left 2 View - 06/14/2022 12:32 pm CLINICAL HISTORY: PAIN COMPARISON: Shoulder Left 2 View dated 06/09/2022; Shoulder Left Wo Cont dated 05/13/2022 FINDINGS: Prominent soft tissue swelling about the left shoulder. The left shoulder joint appears si gnificantly distended. Mild arthritic changes. No fracture.
[2022-06-14 12:43] LABS: Albumin 3.4 g/dL (3.4-5.0); Bilirubin Direct 0.2 mg/dL (0-0.2); Magnesium 1.9 mg/dL (1.8-2.4); Potassium 3.7 mmol/L (3.5-5.1)
[2022-06-14 12:43] LABS: SARS-CoV-2 Antigen Rapid Res Negative (Negative)
[2022-06-14 12:56] LABS: Bilirubin Total 0.6 mg/dL (0.2-1.0); Protein, Total 7.8 g/dL (6.4-8.2); Troponin High Sensitivity 5.7 pg/mL (<58.9)
--- NOTE | 2022-06-14 13:07 | RAD REPORT ---
EXAM DESCRIPTION: CT - Chest Abdomen Pelvis W Cont - 06/14/2022 12:56 pm CLINICAL HISTORY: Chest and abdomen pain. pain COMPARISON: Abdomen 1 View (KUB) dated 06/11/2022 TECHNIQUE: Approximately 100 mL nonionic IV contrast was administered to the patient. All CT scans are performed using dose optimization technique as appropriate and may include automated exposure control or mA/KV adjustment according to patient size. FINDINGS: The lungs are clear.No pleural or pericardial effusion.No intrathoracic adenopathy.Signifi cant fluid with distention present of the left shoulder joint. The liver, spleen, pancreas, adrenal glands are within normal limits. Bilateral renal cysts are prese nt. Punctate calculi are present both kidneys. No hydronephrosis. No bowel obstruction, free air, free fluid or abscess. Moderate stool is present throughout the colon . Nonvisualized appendix. No pathologic lymphadenopathy in the abdomen or pelvis. Mild lumbosacral degenerative changes. IMPRESSION: Significant fluid and distention of the left shoulder joint noted. Punctate stones in both kidneys without hydronephrosis. Bilateral renal cysts noted. Moderate stool is present throughout the colon.
[2022-06-14 13:24] LABS: Urine Blood 1+ (Negative); Urine Glucose Negative (Negative); Urine Protein Negative (Negative); Urine Specific Gravity 1.015 (1.005-1.030)
[2022-06-14 13:41] LABS: Urine Mucus Slight /HPF (None Seen); Urine RBC <5 /HPF (None Seen)
[2022-06-14] MEDS ORDERED: HYDROCODONE/APAP 10/325 TAB ONE (14:07)
[2022-06-14] MEDS ORDERED: LIDOCAINE 1% W/EPI 1:100,000 MDV 50 ML VIAL ONE (16:03)
[2022-06-14] MEDS ORDERED: NA CHLORIDE 0.9% 250 ML ONE (16:38)
[2022-06-14] MEDS ORDERED: VANCOMYCIN 1 GM/VIAL ONE (16:38)
[2022-06-14 18:01] VITALS: O2SAT 100
[2022-06-14 18:03] VITALS: TEMP 99.1
[2022-06-14 18:05] VITALS: BP 160/88
[2022-06-14 18:51] LABS: Body Fluid WBC 13498 /mm^3
[2022-06-14 18:57] LABS: Body Fluid Source SYNOVIAL; Color of fluid Yellow (COLORLESS)
[2022-06-14 18:58] LABS: Appearance TURBID (CLEAR)
--- NOTE | 2022-06-16 15:42 | EKG ---
Test Date: 2022-06-14 Test Time: 11:36:25 Front Office Secretary: POLINA MEASUREMENT RESULTS: Intervals: Rate: 70 HI: 112 QRSD: 76 QT: 368 QTc: 397 [place]: P: 53 HI: 112 QRS: 46 T: 55 INTERPRETIVE STATEMENTS: Normal sinus rhythm Normal ECG Compared to ECG 06/11/2022 08:43:40 No significant changes Electronically Signed On 06-16-22 15:40:23 CDT by Barry Castro
== END 2022-06-14 17:07 | disposition short-term general hospital (02) ==
LOC: ER 10:26
DX: R50.9 Fever, unspecified (principal); R11.2 Nausea with vomiting, unspecified; M25.512 Pain in left shoulder; Z20.822 Contact with and (suspected) exposure to COVID-19
CPT/HCPCS: 96365; 96367; 93005; 87040 ×2; 87070; 85025; 80048; 36415; 88108; 89050; 83735; 84157; 85610; 82945; 80076; 83605; 88305; 84484; 83690; 89060; 83880; 71260; 74177; 71045; 73030; 96375; 99285; 87811; Q9967; J2543; J3010; J3370; J7050; J7030; J2405; 81003; 81015

== ENCOUNTER 2023-04-09 15:35 | Emergency (ER) | payer OTHER ==
--- OUTSIDE RECORDS SUMMARY | 2023-04-09 15:52 | XMS REPORT | Continuity of Care Document ---
:1960 Author Organization [facility] t Address [address] [place] [address] Care Team Providers Name Role Phone Juan Carlos Adams DO Nathan Primary Care Physician [phone] Juan Carlos Adams Attending Clinician Unavailable ISSAC FONSECA Attending Clinician Unavailable Doctor Unassigned, [place] Attending Clinician Unavailable Abhijeet Soto Attending Clinician Issac Fonseca MD Attending Clinician JONATAN_CHRISTIAN_YAHannah Attending Clinician Unavailable MADDIE BRUNSON Attending Clinician Unavailable Maddie Brunson MD Attending Clinician Boyd De Santiago MD Attending Clinician Mali Daniel MD Attending Clinician [phone] Lab, Ang - Db Attending Clinician Unavailable Carlos Gary MD Attending Clinician CARLOS GARY Attending Clinician Unavailable Tiffanie Pat MD Attending Clinician VASU MCDERMOTT Attending Clinician Unavailable VASU MCDERMOTT Attending Clinician Unavailable Vasu Mcdermott MD Attending Clinician Marvin Liu MD Attending Clinician Jc Katz MD Attending Clinician [facility] Attending Clinician Unavailable Desire Raymundo MD Attending Clinician DESIRE RAYMUNDO Attending Clinician Unavailable Ann Delgado MD Attending Clinician NYLAU_SHENG_YAW Admitting Clinician Unavailable MADDIE BRUNSON Admitting Clinician Unavailable Maddie Brunson MD Admitting Clinician Payers Payer Name Policy Type Policy Number Effective Date Expiration Date S apoorva [facility] [id number] 2021 PLUS 00:00:00 [place] [id number] 2022 [facility] 00:00:00 [facility] [id number] 2021 HEALTHCARE 00:00:00 [place]MEDICA[place] Problems Condition Condition Condition Status Onset Resolution Last Treating Co mments Source Name Details Category Date Date Treatment Clinician Date Effusion Effusion Disease Active Unive rs of joint of joint 06-14 ity of of left of left 00:00: [place] shoulder shoulder 00 Medica l Branch Aphasia Aphasia Problem Active 2022-09-05 Me moria (finding) (finding) 14:15:31 l Active [place] Problem 09/05/2022 [facility] Hyperlipid Hyperlipi Problem Active 2022-09-05 Memoria emia demia 14:15:31 l (disorder) (disorder) He rmann Active Problem 09/05/2022 [facility] Paresthesi Paresthes Problem Active 2022-09-05 Memoria a ia 14:15:31 l (finding) (finding) Herm simi Active Problem 09/05/2022 [facility] Rupture of Rupture Problem Active 2022-09-05 Memoria rotator of rotator 14:15:31 l cuff of cuff of [place] shoulder shoulder Active Problem 09/05/2022 [facility] Cerebrovas Problem Resolve 2022-05-30 Memoria cular Cerebrovas d 04:06:46 l accident cular [place] (disorder) accident (disorder) Resolved Problem 05/30/2022 [facility] Burning Burning Problem Common sensation sensation Spir it of skin of skin - [facility] [id number] [place] [address] 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 [facility] [id number] Elevated [place] 63[address] C-reactive Spirit protein - CHI (CRP) [facility] [id number] Hypocalcem Problem Comm on ia Spirit - [facility] [id number] Disseminat Problem Com mon ed herpes Spirit zoster - [facility] [id number] Tingling Problem Comm on of skin Spirit - [facility] [id number] Hemiparesi Problem Co mmon s Spirit affecting - [facility] right side [facility] cular accident [id number] Hemiplegia Problem C ommon of right Spirit dominant - [facility]I side [facility] cular disease, unspecifie d cerebrovas cular disease type, unspecifie d hemiplegia type [id number] History of Problem Co mmon cerebrovas Spirit cular - CHI accident St (CVA) with [facility] No known No known Disease Metho di active active st problems problems Hospit a l Allergies, Adverse Reactions, Alerts Allergy Allergy Status Severity Reaction(s) Onset Inactive Treating Comm ents Source Name Type Date Date Clinician NO KNOWN Drug Active Univers ALLERGIE Class ity of S [facility] Social History Social Habit Start Date Stop Date Quantity Comments Source History of Tobacco Common [facility] - Use [facility] Gender [facility] Sexual orientation [facility] Exposure to 2022-11-24 2022-12-04 Not sure University SARS-CoV-2 (event) 00:00:00 12:29:00 [facility] Tobacco Comment 2022-06-15 2022-06-15 Pt poor Universit y of 00:00:00 00:00:00 historian [facility] [place] [facility] Sex Ass[birth year] At [birth year] [facility] 00:00[facility] 00:[facility]:00 Hospital Smoking Status Start Date Stop Date Source Tobacco smoking consumption unknown [facility] Tobacco smoking status [facility] [place] [facility] Medications Ordered Filled Start Stop Current Ordering Indication Dosage Frequency Signature Comments Components Source Medication Medication Date Date Medication? Clinician (SIG) Name Name non-formula 2021-10 Yes cortisone Aron emoria ry 1-30 shot every l 15:13: 3 months, [place] 00 Refill(s) 0 non-formula 2021-10 Yes cortisone Aron emoria ry 1-30 shot every l 15:13: 3 months, [place] 00 Refill(s) 0 non-formula 2021-10 Yes cortisone Aron emoria ry 1-30 shot every l 15:13: 3 months, [place] 00 Refill(s) 0 methylPREDN 2021-10- No [id number] 80mg Univers ISolone 10-21 [id number] ity of acetate 21:00: 20:04 [place] (DEPO-MEDRO 00 :00 Medical L) Branch injection 80 mg methylPREDN 2021-10- No [id number] 80mg 80 mg, Univers ISolone 10-21 [id number] Intramuscu ity of acetate 21:00: 20:04 lar, ONCE, Mumtaz as (DEPO-MEDRO 00 :00 1 dose, On Me dical L) Fri Branch injection 08/21/22 80 mg at 1500, Routine methylPREDN 2021-10- No [id number] 80mg Univers ISolone 10-21 [id number] ity of acetate 21:00: 20:04 [place] (DEPO-MEDRO 00 :00 Medical L) Branch injection 80 mg methylPREDN 2021-10- No [id number] 80mg 80 mg, Univers ISolone 10-21 [id number] Intramuscu ity of acetate 21:00: 20:04 lar, ONCE, [place] as (DEPO-MEDRO 00 :00 1 dose, On Me dical L) Fri Branch injection 08/21/22 80 mg at 1500, Routine methylPREDN 2021-10- No [id number] 80mg Univers ISolone 10-21 [id number] ity of acetate 21:00: 20:04 [place] (DEPO-MEDRO 00 :00 Medical L) Branch injection 80 mg methylPREDN 2021-10- No [id number] 80mg 80 mg, Univers ISolone 10-21 [id number] Intramuscu ity of acetate 21:00: 20:04 lar, ONCE, [place] as (DEPO-MEDRO 00 :00 1 dose, On Me estefany L) Fri Branch injection 08/21/22 80 mg at 1500, Routine Zofran 4 MG Zofran 4 MG No BID Zofran 4 9-28 MG 00:00: 00 Zofran 4 MG Zofran 4 MG 2021-0 No BID Zofran 4 9-28 MG 00:00: 00 Zofran 4 MG Zofran 4 MG 0 No BID Zofran 4 9-28 MG 00:00: 00 Zofran 4 MG Zofran 4 MG 2021-0 No BID Zofran 4 9-28 MG 00:00: 00 Naproxen Naproxen 2021- No BID Naproxen 250 MG 250 MG 9-28 10-28 250 MG 00:00: 00:00 00 :00 aspirin 81 Yes [id number] 81mg Take 1 Univers mg chewable 9-14 9109 tablet by ity of tablet 00:00: mouth in [place] the Medical morning. Branch aspirin 81 Yes [id number] 81mg Take 1 Univers mg chewable 9-14 9109 tablet by ity of tablet 00:00: mouth in [place] the Medical morning. Branch aspirin 81 Yes [id number] 81mg Take 1 Univers mg chewable 9-14 9109 tablet by ity of tablet 00:00: mouth in [place] the Medical morning. Branch aspirin 81 Yes [id number] 81mg Take 1 Univers mg chewable 9-14 9109 tablet by ity of tablet 00:00: mouth in [place] the Medical morning. Branch aspirin 81 0 Yes [id number] 81mg Take 1 Univers mg chewable 9-14 9109 tablet by ity of tablet 00:00: mouth in [place] the Medical morning. Branch aspirin 81 Yes [id number] 81mg Take 1 Univers mg chewable 9-14 9109 tablet by ity of tablet 00:00: mouth in [place] the Medical morning. Branch aspirin 81 Yes [id number] 81mg Take 1 Univers mg chewable 9-14 9109 tablet by ity of tablet 00:00: mouth in [place] 00 the Medical morning. Branch aspirin 81 2022-0 Yes [id number] 81mg Take 1 Univers mg chewable 9-14 9109 tablet by ity of tablet 00:00: mouth in [place] the Medical morning. Branch aspirin 81 2022-0 Yes [id number] 81mg Take 1 Univers mg chewable 9-14 9109 tablet by ity of tablet 00:00: mouth in [place] the Medical morning. Branch aspirin 81 2022-0 Yes [id number] 81mg Take 1 Univers mg chewable 9-14 9109 tablet by ity of tablet 00:00: mouth in [place] the Medical morning. Branch naproxen 2022-0 Yes [id number] 500mg Take 1 Univers 500 mg 9-13 9109 tablet by ity of tablet 00:00: mouth in [place] 00 the Medical morning Branch and 1 tablet in the evening. naproxen 2022-0 Yes [id number] 500mg Take 1 Univers 500 mg 9-13 9109 tablet by ity of tablet 00:00: mouth in [place] 00 the Medical morning Branch and 1 tablet in the evening. naproxen 2022-0 Yes [id number] 500mg Take 1 Univers 500 mg 9-13 9109 tablet by ity of tablet 00:00: mouth in [place] 00 the Medical morning Branch and 1 tablet in the evening. naproxen 2022-0 Yes [id number] 500mg Take 1 Univers 500 mg 9-13 9109 tablet by ity of tablet 00:00: mouth in [place] 00 the Medical morning Branch and 1 tablet in the evening. naproxen 2022-0 Yes [id number] 500mg Take 1 Univers 500 mg 9-13 9109 tablet by ity of tablet 00:00: mouth in [place] 00 the Medical morning Branch and 1 tablet in the evening. naproxen 2022-0 Yes [id number] 500mg Take 1 Univers 500 mg 9-13 9109 tablet by ity of tablet 00:00: mouth in [place] 00 the Medical morning Branch and 1 tablet in the evening. naproxen 2022-0 Yes [id number] 500mg Take 1 Univers 500 mg 9-13 9109 tablet by ity of tablet 00:00: mouth in [place] [address] the Medical morning Branch and 1 tablet in the evening. naproxen 2021-0 Yes [id number] 500mg Take 1 Univers 500 mg 9 9109 tablet by ity of tablet 00:00: mouth in [address] and 1 tablet in the evening. naproxen 202-0 Yes [id number] 500mg Take 1 Univers 500 mg 9- 9109 tablet by ity of tablet 00:00: mouth in [address] and 1 tablet in the evening. naproxen 2021-0 Yes [id number] 500mg Take 1 Univers 500 mg 9 9109 tablet by ity of tablet 00:00: mouth in [address] and 1 tablet in the evening. aspirin 2021-0 Yes 81mg 81 mg, Univers chewable 06-15 Oral, ity of tablet 81 14:00: DAILY, [place] mg 00 First dose Medical on [facility] 06/15/22 at 0900, Until Discontinu ed, Routine naproxen 0 Yes 500mg 500 mg, Unive rs (NAPROSYN) 9-12 Oral, BID, ity of tablet 500 13:00: First dose [place] mg 00 on [facility] 06/15/22 at Branch 0800, Until Discontinu ed, Routine simvastatin 0 Yes 10mg 10 mg, Univ ers (ZOCOR) 9-12 Oral, QHS, ity of tablet 10 02:00: First dose [place] mg 00 on [facility] 06/14/22 at Branch 2100, Until Discontinu ed, Routine heparin 2021-0 Yes 5000U 5,000 Univers (porcine) 9-12 Units, ity of injection 01:00: Subcutaneo [place] 5,000 Units 00 us, Q12H, Med ical First dose Branch on [place] 06/14/22 at 2000, Until Discontinu ed, Routine ondansetron 2021-0 Yes 4mg 4 mg, Slow Univers (ZOFRAN 9-12 IV Push, ity of (PF)) 00:23: Q6HPRN, [place] injection 4 00 Starting Medi moses mg on [facility] 06/14/22 at 1923, Until Discontinu ed, Routine, Nausea and Vomiting (N/V) HYDROcodone 2021-0 2022- No 1{tbl} 1 tablet, Univers -acetaminop 9-12 09-14 Oral, ity of hen (NORCO 00:22: 00:21 Q6HPRN, [place] as 5) 5-325 mg 51 :51 Starting Medi moses tablet 1 on [facility] Branch tablet 06/14/22 at 1921, Until 06/16/22 at 1920, Routine, Pain (scale 4-6) acetaminoph Yes 650mg 650 mg, Un ciro en 06-15 Oral, ity of (TYLENOL) 00:22: Q6HPRN, [place] tablet 650 43 Starting Medic al mg on [facility] Branch 06/14/22 at 1921, Until Discontinu ed, Routine, Pain (scale 1-3) meloxicam 2022- No 7.5mg QD Take 1 Meth omaira (Mobic) 7.5 06-01 08-[address] mg tablet 00:00: 04:59 (7.5 mg [facility] 00 :00 total) by l mouth daily. meloxicam 2022- No 7.5mg QD Take 1 Meth omaira (Mobic) 7.5 06-01 08-[address] mg tablet 00:00: 04:59 (7.5 mg [facility] 00 :00 total) by l mouth daily. meloxicam 2021-2022- No 7.5mg QD Take 1 Meth omaira (Mobic) 7.5 06-01 08-[address] mg tablet 00:00: 04:59 (7.5 mg [facility] 00 :00 total) by l mouth daily. meloxicam 2021-2022- No 7.5mg QD Take 1 Meth omaira (Mobic) 7.5 06-01 08-[address] mg tablet 00:00: 04:59 (7.5 mg [facility] 00 :00 total) by l mouth daily. simvastatin 2021-0 Yes 10mg QD Take 1 Meth omaira (ZOCOR) 10 8-12 tablet (10 st MG tablet 00:00: mg total) Hos ro 00 by mouth l every evening. simvastatin 2021-0 Yes 10mg QD Take 1 Meth omaira (ZOCOR) 10 8-12 tablet (10 st MG tablet 00:00: mg total) Hos ro 00 by mouth l every evening. simvastatin 2021-0 Yes 10mg QD Take 1 Meth omaira (ZOCOR) 10 8-12 tablet (10 st MG tablet 00:00: mg total) Hos ro 00 by mouth l every evening. simvastatin 2021-0 Yes 10mg Take 10 mg Univers 10 mg 8-12 by mouth ity of tablet 00:00: at [place] [address] bedtime. Medical Branch simvastatin 2021-0 Yes 10mg Take 10 mg Univers 10 mg 8-12 by mouth ity of tablet 00:00: at [place] [address] bedtime. Medical Branch simvastatin 2021-0 Yes 10mg Take 10 mg Univers 10 mg 8-12 by mouth ity of tablet 00:00: at [place] [address] bedtime. [facility] Branch simvastatin 2021-0 Yes 10mg Take 10 mg Univers 10 mg 8-12 by mouth ity of tablet 00:00: at [place] [address] bedtime. [facility] Branch simvastatin 2021-0 Yes 10mg Take 10 mg Univers 10 mg 8-12 by mouth ity of tablet 00:00: at [place] [address] bedtime. [facility] Branch simvastatin 2021-0 Yes 10mg Take 10 mg Univers 10 mg 8-12 by mouth ity of tablet 00:00: at [place] [address] bedtime. [facility] Branch simvastatin 2021-0 Yes 10mg Take 10 mg Univers 10 mg 8-12 by mouth ity of tablet 00:00: at [place] [address] bedtime. [facility] Branch simvastatin 2021-0 Yes 10mg Take 10 mg Univers 10 mg 8-12 by mouth ity of tablet 00:00: at [place] [address] bedtime. [facility] Branch simvastatin 2021-0 Yes 10mg Take 10 mg Univers 10 mg 8-12 by mouth ity of tablet 00:00: at [place] [address] bedtime. [facility] Branch simvastatin 2021-0 Yes 10mg Take 10 mg Univers 10 mg 8-12 by mouth ity of tablet 00:00: at [place] [address] bedtime. [facility] Branch simvastatin 0 Yes 10mg QD Take 1 Meth omaira (ZOCOR) 10 8-12 tablet (10 st MG tablet 00:00: mg total) Hos ro 00 by mouth l every evening. Bupivicaine Bupivicaine No 2.5mg Common [place] 03-09 Spirit 00:00: - [facility] 00 [facility] Kenalog Kenalog 0 No 40mg Common (Triamcinol (Triamcinol 03-09 S pirit one) one) 00:00: - [facility] 00 [facility] Bupivicaine Bupivicaine 2-0 No 2.5mg Common [place] 6-06 Spirit 00:00: - [facility] 00 [facility] Kenalog Kenalog 2-0 No 40mg Common (Triamcinol (Triamcinol 6-06 S pirit one) one) 00:00: - [facility]I 00 [facility] Bupivicaine Bupivicaine 2-0 No 2.5mg Common [place] 6-06 Spirit 00:00: - [facility]I 00 [facility] Kenalog Kenalog 2-0 No 40mg Common (Triamcinol (Triamcinol 6-06 S pirit one) one) 00:00: - [facility]I 00 [facility] Bupivicaine Bupivicaine 2021-0 No 2.5mg Common [place] 6-06 Spirit 00:00: - [facility]I 00 [facility] Kenalog Kenalog 2-0 No 40mg Common (Triamcinol (Triamcinol 6-06 S pirit one) one) 00:00: - [facility]I 00 [facility] Bupivicaine Bupivicaine 2-0 No 2.5mg Common [place] 6-06 Spirit 00:00: - [facility]I 00 [facility] Kenalog Kenalog 2-0 No 40mg Common (Triamcinol (Triamcinol 6-06 S pirit one) one) 00:00: - [facility]I 00 [facility] Bupivicaine Bupivicaine 2-0 No 2.5mg Common [place] 6-06 Spirit 00:00: - [facility] 00 [facility] Kenalog Kenalog 2-0 No 40mg Common (Triamcinol (Triamcinol 6-06 S pirit one) one) 00:00: - [facility]I 00 [facility] Bupivicaine Bupivicaine 2-0 No 2.5mg Common [place] 6-06 Spirit 00:00: - CHI 00 [facility] Kenalog Kenalog 2-0 No 40mg Common (Triamcinol (Triamcinol 6-06 S pirit one) one) 00:00: - [facility]I 00 [facility] Bupivicaine Bupivicaine 2-0 No 2.5mg Common [place] 6-06 Spirit 00:00: - [facility]I 00 [facility] Kenalog Kenalog 2-0 No 40mg Common (Triamcinol (Triamcinol 6-06 S pirit one) one) 00:00: - [facility]I 00 [facility] Bupivicaine Bupivicaine 2-0 No 2.5mg Common [place] 6-06 Spirit 00:00: - [facility]I 00 [facility] Kenalog Kenalog 2-0 No 40mg Common (Triamcinol (Triamcinol 6-06 S pirit one) one) 00:00: - [facility]I 00 [facility] Bupivicaine Bupivicaine 2-0 No 2.5mg Common [place] 6- Spirit 00:00: - CHI 00 [facility] Kenalog Kenalog 2-0 No 40mg Common (Triamcinol (Triamcinol 6-06 S pirit one) one) 00:00: - [facility]I 00 [facility] Bupivicaine Bupivicaine 2-0 No 2.5mg Common [place] 6-06 Spirit 00:00: - [facility]I 00 [facility] Kenalog Kenalog 2-0 No 40mg Common (Triamcinol (Triamcinol 6-06 S pirit one) one) 00:00: - [facility]I 00 [facility] Bupivicaine Bupivicaine 2-0 No 2.5mg Common [place] 6-06 Spirit 00:00: - [facility]I 00 [facility] Kenalog Kenalog 2-0 No 40mg Common (Triamcinol (Triamcinol 6-06 S pirit one) one) 00:00: - [facility]I 00 [facility] Bupivicaine Bupivicaine 2-0 No 2.5mg Common [place] 6-06 Spirit 00:00: - [facility]I 00 [facility] Kenalog Kenalog 2-0 No 40mg Common (Triamcinol (Triamcinol 6-06 S pirit one) one) 00:00: - [facility]I 00 [facility] Bupivicaine Bupivicaine 2-0 No 2.5mg Common [place] 6-06 Spirit 00:00: - [facility]I 00 [facility] Kenalog Kenalog 2021-0 No 40mg Common (Triamcinol (Triamcinol 6-06 S pirit one) one) 00:00: - [facility]I 00 [facility] Bupivicaine Bupivicaine 2-0 No 2.5mg Common [place] 6-06 Spirit 00:00: - [facility] Kenalog Kenalog 2021-0 No 40mg Common (Triamcinol (Triamcinol 6-06 S pirit one) one) 00:00: - [facility] 00 [facility] Bupivicaine Bupivicaine 2021-0 No 2.5mg Common [place] 6-06 Spirit 00:00: - [facility] 00 [facility] Kenalog Kenalog 2021-0 No 40mg Common (Triamcinol (Triamcinol 6-06 S pirit one) one) 00:00: - [facility] Bupivicaine Bupivicaine 2-0 No 2.5mg Common [place] 6-06 Spirit 00:00: - [facility]I 00 [facility] Kenalog Kenalog 2021-0 No 40mg Common (Triamcinol (Triamcinol 6-06 S pirit one) one) 00:00: - [facility] 00 [facility] Cephalexin Cephalexin 2021-0 2- No 1{capsu BID Cephalexin 500 MG 500 MG 5-18 05-23 le} 500 MG 00:00: 00:00 00 :00 Cephalexin Cephalexin 2-0 2022- No 1{capsu BID Cephalexin 500 MG 500 MG 5-18 05-23 le} 500 MG 00:00: 00:00 00 :00 Cephalexin Cephalexin 2-0 2022- No 1{capsu BID Cephalexin 500 MG 500 MG 5-18 05-23 le} 500 MG 00:00: 00:00 00 :00 simvastatin 2-0 Yes TAKE 1 Jairo sreedhar 10 mg oral 2-23 TABLET BY l tablet 15:28: MOUTH [place] 00 EVERY DAY IN THE EVENING simvastatin [...] 2-23 TABLET BY l tablet 15:28: MOUTH [place] 00 EVERY DAY IN THE EVENING Simvastatin Simvastatin No 1{table QD Simvastati 10 MG 10 MG 2-02 t_in_ n 10 MG 00:00: e_eveni 00 ng} Ketoconazol Ketoconazol 2021- No 1{appli BID Ketoconazo e 2 % e 2 % 10-10 cation} le 2 % 00:00: 00:00 00 :00 mometasone 2020-10 Yes [id number] Apply to Univers 0.1 % 2-15 area(s) 2 ity of lotion 00:00: (two) [place] 00 times Medical daily. Branch Avoid face, armpits, and groin. clobetasoL 2020-10 Yes [id number] Apply to Univers 0.05 % 2-15 area(s) 2 ity of cream 00:00: (two) [place] 00 times Medical daily. Branch mometasone 2020-10 Yes [id number] Apply to Univers 0.1 % 2-15 area(s) 2 ity of lotion 00:00: (two) [place] 00 times Medical daily. Branch Avoid face, armpits, and groin. clobetasoL 2020- Yes [id number] Apply to Univers 0.05 % 2-15 area(s) 2 ity of cream 00:00: (two) [place] 00 times Medical daily. Branch mometasone 2020-10 Yes [id number] Apply to Univers 0.1 % 2-15 area(s) 2 ity of lotion 00:00: (two) [place] 00 times Medical daily. Branch Avoid face, armpits, and groin. clobetasoL 2020- Yes [id number] Apply to Univers 0.05 % 2-15 area(s) 2 ity of cream 00:00: (two) [place] 00 times Medical daily. Branch mometasone 2020-10 Yes [id number] Apply to Univers 0.1 % 2-15 area(s) 2 ity of lotion 00:00: (two) [place] 00 times Medical daily. Branch Avoid face, armpits, and groin. clobetasoL 1-1 Yes [id number] Apply to Univers 0.05 % 2-15 area(s) 2 ity of cream 00:00: (two) [place] 00 times Medical daily. Branch mometasone 2020- Yes [id number] Apply to Univers 0.1 % 2-15 area(s) 2 ity of lotion 00:00: (two) [place] 00 times Medical daily. Branch Avoid face, armpits, and groin. clobetasoL 2020- Yes [id number] Apply to Univers 0.05 % 2-15 area(s) 2 ity of cream 00:00: (two) [place] 00 times Medical daily. Branch mometasone 2020- Yes [id number] Apply to Univers 0.1 % 2-15 area(s) 2 ity of lotion 00:00: (two) [place] 00 times Medical daily. Branch Avoid face, armpits, and groin. clobetasoL 2020- Yes [id number] Apply to Univers 0.05 % 2-15 area(s) 2 ity of cream 00:00: (two) [place] 00 times Medical daily. Branch mometasone 2020- Yes [id number] Apply to Univers 0.1 % 2-15 area(s) 2 ity of lotion 00:00: (two) [place] 00 times Medical daily. Branch Avoid face, armpits, and groin. clobetasoL 2020-1 Yes [id number] Apply to Univers 0.05 % 2-15 area(s) 2 ity of cream 00:00: (two) [place] 00 times Medical daily. Branch mometasone 2020- Yes [id number] Apply to Univers 0.1 % 2-15 area(s) 2 ity of lotion 00:00: (two) [place] 00 times Medical daily. Branch Avoid face, armpits, and groin. clobetasoL 1-1 Yes [id number] Apply to Univers 0.05 % 2-15 area(s) 2 ity of cream 00:00: (two) [place] 00 times Medical daily. Branch mometasone 2020- Yes [id number] Apply to Univers 0.1 % 2-15 area(s) 2 ity of lotion 00:00: (two) [place] 00 times Medical daily. Branch Avoid face, armpits, and groin. clobetasoL 2020-1 Yes [id number] Apply to Univers 0.05 % 2-15 area(s) 2 ity of cream 00:00: (two) [place] 00 times Medical daily. Branch mometasone 2020- Yes [id number] Apply to Univers 0.1 % 2-15 area(s) 2 ity of lotion 00:00: (two) [place] 00 times Medical daily. Branch Avoid face, armpits, and groin. clobetasoL 2020- Yes [id number] Apply to Univers 0.05 % 2-15 area(s) 2 ity of cream 00:00: (two) [place] 00 times Medical daily. Branch mometasone 2020- Yes [id number] Apply to Univers 0.1 % 2-15 area(s) 2 ity of lotion 00:00: (two) [place] 00 times Medical daily. Branch Avoid face, armpits, and groin. clobetasoL 2020- Yes [id number] Apply to Univers 0.05 % 2-15 area(s) 2 ity of cream 00:00: (two) [place] 00 times Medical daily. Branch mometasone 2020- Yes [id number] Apply to Univers 0.1 % 2-15 area(s) 2 ity of lotion 00:00: (two) [place] 00 times Medical daily. Branch Avoid face, armpits, and groin. clobetasoL 2020- Yes [id number] Apply to Univers 0.05 % 2-15 area(s) 2 ity of cream 00:00: (two) [place] 00 times Medical daily. Branch mometasone 2020- Yes [id number] Apply to Univers 0.1 % 2-15 area(s) 2 ity of lotion 00:00: (two) [place] 00 times Medical daily. Branch Avoid face, armpits, and groin. clobetasoL 1-1 Yes [id number] Apply to Univers 0.05 % 2-15 area(s) 2 ity of cream 00:00: (two) [place] 00 times Medical daily. Branch mometasone 2020- Yes [id number] Apply to Univers 0.1 % 2-15 area(s) 2 ity of lotion 00:00: (two) [place] 00 times Medical daily. Branch Avoid face, armpits, and groin. clobetasoL 2020- Yes [id number] Apply to Univers 0.05 % 2-15 area(s) 2 ity of cream 00:00: (two) [place] 00 times Medical daily. Branch mometasone 2020-10 Yes [id number] Apply to Univers 0.1 % 2-15 area(s) 2 ity of lotion 00:00: (two) [place] 00 times Medical daily. Branch Avoid face, armpits, and groin. clobetasoL 2020-10 Yes [id number] Apply to Univers 0.05 % 2-15 area(s) 2 ity of cream 00:00: (two) [place] 00 times Medical daily. Branch mometasone 2020-10 Yes [id number] Apply to Univers 0.1 % 2-15 area(s) 2 ity of lotion 00:00: (two) [place] 00 times Medical daily. Branch Avoid face, armpits, and groin. clobetasoL 2020- Yes [id number] Apply to Univers 0.05 % 2-15 area(s) 2 ity of cream 00:00: (two) [place] 00 times Medical daily. Branch meclizine 2020-10 Yes 0 Memoria 25 mg oral 1-22 Refill(s) l tablet 15:24: meclizine 2020-10 Yes 0 Memoria 25 [...] mg oral 1-22 Refill(s) l tablet 15:24: meclizine 2020-10 Yes 0 Memoria 25 [...] mg oral 1-22 Refill(s) l tablet 15:24: Valtrex 1 Valtrex 1 2020-0 1- No 1{table TID Valtrex 1 GM GM 9-27 10-04 t} GM 00:00: 00:00 00 :00 Lidocaine 4 Lidocaine 4 2020- No 1{appli BID Lidocaine % % 9-03 cation_ 4 % 00:00: as_need 00 ed} Lidocaine 4 Lidocaine 4 2020-0 No 1{appli BID Lidocaine % % 9-03 cation_ 4 % 00:00: as_need 00 ed} Lidocaine 4 Lidocaine 4 2020-0 No 1{appli BID Lidocaine % % 9-03 cation_ 4 % 00:00: as_need 00 ed} Lidocaine 4 Lidocaine 4 2020-0 No 1{appli BID Lidocaine % % 9-03 cation_ 4 % 00:00: as_need 00 ed} Lidocaine 4 Lidocaine 4 2020-0 No 1{appli BID Lidocaine % % 9-03 cation_ 4 % 00:00: as_need 00 ed} Lidocaine 4 Lidocaine 4 2020-0 No 1{appli BID Lidocaine % % 9-03 cation_ 4 % 00:00: as_need 00 ed} Lidocaine 4 Lidocaine 4 2020-0 No 1{appli BID Lidocaine % % 9-03 cation_ 4 % 00:00: as_need 00 ed} Lidocaine 4 Lidocaine 4 No 1{appli BID Lidocaine % % 9-03 cation_ 4 % 00:00: as_need 00 ed} Lidocaine 4 Lidocaine 4 No 1{appli BID Lidocaine % % 9-03 cation_ 4 % 00:00: as_need 00 ed} Lidocaine 4 Lidocaine 4 No 1{appli BID Lidocaine % % 9-03 cation_ 4 % 00:00: as_need 00 ed} Lidocaine 4 Lidocaine 4 No 1{appli BID Lidocaine % % 9-03 cation_ 4 % 00:00: as_need 00 ed} Lidocaine 4 Lidocaine 4 No 1{appli BID Lidocaine % % 9-03 cation_ 4 % 00:00: as_need 00 ed} Lidocaine 4 Lidocaine 4 No 1{appli BID Lidocaine % % 9-03 cation_ 4 % 00:00: as_need 00 ed} Lidocaine 4 Lidocaine 4 No 1{appli BID Lidocaine % % 9-03 cation_ 4 % 00:00: as_need 00 ed} Lidocaine 4 Lidocaine 4 No 1{appli BID Lidocaine % % 9-03 cation_ 4 % 00:00: as_need 00 ed} Lidocaine 4 Lidocaine 4 No 1{appli BID Lidocaine % % 9-03 cation_ 4 % 00:00: as_need 00 ed} Lidocaine 4 Lidocaine 4 No 1{appli BID Lidocaine % % 9-03 cation_ 4 % 00:00: as_need 00 ed} Lidocaine 4 Lidocaine 4 No 1{appli BID Lidocaine % % 9-03 cation_ 4 % 00:00: as_need 00 ed} Lidocaine 4 Lidocaine 4 No 1{appli BID Lidocaine % % 9-03 cation_ 4 % 00:00: as_need 00 ed} Lidocaine 4 Lidocaine 4 No 1{appli BID Lidocaine % % 9-03 cation_ 4 % 00:00: as_need 00 ed} Lidocaine 4 Lidocaine 4 No 1{appli BID Lidocaine % % 9-03 cation_ 4 % 00:00: as_need 00 ed} Lidocaine 4 Lidocaine 4 No 1{appli BID Lidocaine % % 9-03 cation_ 4 % 00:00: as_need 00 ed} Lidocaine 4 Lidocaine 4 No 1{appli BID Lidocaine % % 9-03 cation_ 4 % 00:00: as_need 00 ed} Lidocaine 4 Lidocaine 4 No 1{appli BID Lidocaine % % 9-03 cation_ 4 % 00:00: as_need 00 ed} Lidocaine 4 Lidocaine 4 No 1{appli BID Lidocaine % % 9-03 cation_ 4 % 00:00: as_need 00 ed} Lidocaine 4 Lidocaine 4 No 1{appli BID Lidocaine % % 9-03 cation_ 4 % 00:00: as_need 00 ed} Lidocaine 4 Lidocaine 4 No 1{appli BID Lidocaine % % 9-03 cation_ 4 % 00:00: as_need 00 ed} Lidocaine 4 Lidocaine 4 No 1{appli BID Lidocaine % % 9-03 cation_ 4 % 00:00: as_need 00 ed} Lidocaine 4 Lidocaine 4 No 1{appli BID Lidocaine % % 9-03 cation_ 4 % 00:00: as_need 00 ed} Vibramycin Vibramycin 2020- No 1{capsu QD Vibramycin 100 MG 100 MG 06-06 le} 100 MG 00:00: 00:00 00 :00 atorvastati Yes 20 mg = 1 M emoria n 20 MG 8-20 tab, PO, l Oral Tablet 20:17: Bedtime, # Aryan [Lipitor] 00 30 tab, 2 Refill(s), Pharmacy: [facility] #[id number], 165.1, cm, 05/23/21 14:27:00 CDT, Height, 75.455, kg, 05/23/21 14:27:00 CDT, Weight atorvastati Yes 20 mg = 1 M emoria n 20 MG 8-20 tab, PO, l Oral Tablet 20:17: Bedtime, # Aryan [Lipitor] 00 30 tab, 2 Refill(s), Pharmacy: [facility] #[id number], 165.1, cm, 05/23/21 14:27:00 CDT, Height, 75.455, kg, 05/23/21 14:27:00 CDT, Weight atorvastati Yes 20 mg = 1 M emoria n 20 MG 8-20 tab, PO, l Oral Tablet 20:17: Bedtime, # Aryan [Lipitor] 00 30 tab, 2 Refill(s), Pharmacy: [facility][id number], 165.1, cm, 05/23/21 14:27:00 CDT, Height, 75.455, kg, 05/23/21 14:27:00 CDT, Weight atorvastati Yes 20 mg = 1 M emoria n 20 MG 8-20 tab, PO, l Oral Tablet 20:17: Bedtime, # Aryan [Lipitor] 00 30 tab, 2 Refill(s), Pharmacy: [facility] [place] #[id number], 165.1, cm, 05/23/21 14:27:00 CDT, Height, 75.455, kg, 05/23/21 14:27:00 CDT, Weight atorvastati Yes 20 mg = 1 M emoria n 20 MG 8-20 tab, PO, l Oral Tablet 20:17: Bedtime, # Aryan [Lipitor] 00 30 tab, 2 Refill(s), Pharmacy: [facility] #[id number], 165.1, cm, 05/23/21 14:27:00 CDT, Height, 75.455, kg, 05/23/21 14:27:00 CDT, Weight Aspirin 81 0 Yes 81 mg = 1 Me moria MG Delayed 8-20 tab, PO, l Release 19:47: Daily, 0 Krishna n Oral Tablet 00 Refill(s) [Aspi-Cor] Aspi-Cor 81 Yes 81 mg = 1 M emoria mg oral 8-20 tab, PO, l delayed 19:47: Daily, 0 Krishna n release 00 Refill(s) tablet Aspirin 81 2020-0 Yes 81 mg = 1 Me moria MG Delayed 8-20 tab, PO, l Release 19:47: Daily, 0 Krishna n Oral Tablet 00 Refill(s) [Aspi-Cor] Aspirin 81 2020-0 Yes 81 mg = 1 Me moria MG Delayed 8-20 tab, PO, l Release 19:47: Daily, 0 Krishna n Oral Tablet 00 Refill(s) [Aspi-Cor] Aspirin Yes 81 mg = 1 Me moria MG Delayed 8-20 tab, PO, l Release 19:47: Daily, 0 Krishna n Oral Tablet 00 Refill(s) [Aspi-Cor] Aspi-Cor Yes 81 mg = 1 M emoria mg oral 8-20 tab, PO, l delayed 19:47: Daily, 0 Krishna n release 00 Refill(s) tablet Aspirin Yes 81 mg = 1 Me moria MG Delayed 8-20 tab, PO, l Release 19:47: Daily, 0 Krishna n Oral Tablet 00 Refill(s) [Aspi-Cor] Aspi-Cor Yes 81 mg = 1 M emoria mg oral 8-20 tab, PO, l delayed 19:47: Daily, 0 Krishna n release 00 Refill(s) tablet Triamcinolo Triamcinolo No 1{appli Triamcinol ne ne cation} one Acetonide Acetonide Acetonide 0.1 % 0.1 % 0.1 % Triamcinolo Triamcinolo No 1{appli Triamcinol ne ne cation} one Acetonide Acetonide Acetonide 0.1 % 0.1 % 0.1 % Triamcinolo Triamcinolo No 1{appli Triamcinol ne ne cation} one Acetonide Acetonide Acetonide 0.1 % 0.1 % 0.1 % - 81 81 No 1{table QD Aspir-81 MG MG t} 81 MG Triamcinolo Triamcinolo No 1{appli Triamcinol ne ne cation} one Acetonide Acetonide Acetonide 0.1 % 0.1 % 0.1 % Triamcinolo Triamcinolo No 1{appli Triamcinol ne ne cation} one Acetonide Acetonide Acetonide 0.1 % 0.1 % 0.1 % Simvastatin Simvastatin No 1{table QD Simvastati 10 MG 10 MG t_in_th n 10 MG e_eveni ng} - 81 81 No 1{table QD Aspir-81 MG MG t} 81 MG Triamcinolo Triamcinolo No 1{appli Triamcinol ne ne cation} one Acetonide Acetonide Acetonide 0.1 % 0.1 % 0.1 % Simvastatin Simvastatin No 1{table QD Simvastati 10 MG 10 MG t_in_th n 10 MG e_eveni ng} Aspir-81 81 Aspir-81 81 No 1{table QD Aspir-81 MG MG t} 81 MG Triamcinolo Triamcinolo No 1{appli Triamcinol ne ne cation} one Acetonide Acetonide Acetonide 0.1 % 0.1 % 0.1 % Simvastatin Simvastatin No 1{table QD Simvastati 10 MG 10 MG t_in_th n 10 MG e_eveni ng} Aspir-81 81 Aspir-81 81 No 1{table QD Aspir-81 MG MG t} 81 MG Triamcinolo Triamcinolo No 1{appli Triamcinol ne ne cation} one Acetonide Acetonide Acetonide 0.1 % 0.1 % 0.1 % Simvastatin Simvastatin No 1{table QD Simvastati 10 MG 10 MG t_in_th n 10 MG e_eveni ng} Aspir-81 81 Aspir-81 81 No 1{table QD Aspir-81 MG MG t} 81 MG Triamcinolo Triamcinolo No 1{appli Triamcinol ne ne cation} one Acetonide Acetonide Acetonide 0.1 % 0.1 % 0.1 % Simvastatin Simvastatin No 1{table QD Simvastati 10 MG 10 MG t_in_th n 10 MG e_eveni ng} Aspir-81 81 Aspir-81 81 No 1{table QD Aspir-81 MG MG t} 81 MG Triamcinolo Triamcinolo No 1{appli Triamcinol ne ne cation} one Acetonide Acetonide Acetonide 0.1 % 0.1 % 0.1 % Simvastatin Simvastatin No 1{table QD Simvastati 10 MG 10 MG t_in_th n 10 MG e_eveni ng} Aspir-81 81 Aspir-81 81 No 1{table QD Aspir-81 MG MG t} 81 MG Aspir-81 81 Aspir-81 81 No 1{table QD Aspir-81 MG MG t} 81 MG Simvastatin Simvastatin No 1{table QD Simvastati 10 MG 10 MG t_in_th n 10 MG e_eveni ng} Triamcinolo Triamcinolo No 1{appli Triamcinol ne ne cation} one Acetonide Acetonide Acetonide 0.1 % 0.1 % 0.1 % Simvastatin Simvastatin No 1{table QD Simvastati 10 MG 10 MG t_in_th n 10 MG e_eveni ng} Triamcinolo Triamcinolo No 1{appli Triamcinol ne ne cation} one Acetonide Acetonide Acetonide 0.1 % 0.1 % 0.1 % Aspir-81 81 Aspir-81 81 No 1{table QD Aspir-81 MG MG t} 81 MG Simvastatin Simvastatin No 1{table QD Simvastati 10 MG 10 MG t_in_th n 10 MG e_eveni ng} Triamcinolo Triamcinolo No 1{appli Triamcinol ne ne cation} one Acetonide Acetonide Acetonide 0.1 % 0.1 % 0.1 % Aspir-81 81 Aspir-81 81 No 1{table QD Aspir-81 MG MG t} 81 MG Simvastatin Simvastatin No 1{table QD Simvastati 10 MG 10 MG t_in_th n 10 MG e_eveni ng} Triamcinolo Triamcinolo No 1{appli Triamcinol ne ne cation} one Acetonide Acetonide Acetonide 0.1 % 0.1 % 0.1 % Aspir-81 81 Aspir-81 81 No 1{table QD Aspir-81 MG MG t} 81 MG Simvastatin Simvastatin No 1{table QD Simvastati 10 MG 10 MG t_in_th n 10 MG e_eveni ng} Triamcinolo Triamcinolo No 1{appli Triamcinol ne ne cation} one Acetonide Acetonide Acetonide 0.1 % 0.1 % 0.1 % Aspir-81 81 Aspir-81 81 No 1{table QD Aspir-81 MG MG t} 81 MG Aspir-81 81 Aspir-81 81 No 1{table QD Aspir-81 MG MG t} 81 MG Triamcinolo Triamcinolo No 1{appli Triamcinol ne ne cation} one Acetonide Acetonide Acetonide 0.1 % 0.1 % 0.1 % Simvastatin Simvastatin No 1{table QD Simvastati 10 MG 10 MG t_in_th n 10 MG e_eveni ng} Aspir-81 81 Aspir-81 81 No 1{table QD Aspir-81 MG MG t} 81 MG Triamcinolo Triamcinolo No 1{appli Triamcinol ne ne cation} one Acetonide Acetonide Acetonide 0.1 % 0.1 % 0.1 % Simvastatin Simvastatin No 1{table QD Simvastati 10 MG 10 MG t_in_th n 10 MG e_eveni ng} Aspir-81 81 Aspir-81 81 No 1{table QD Aspir-81 MG MG t} 81 MG Triamcinolo Triamcinolo No 1{appli Triamcinol ne ne cation} one Acetonide Acetonide Acetonide 0.1 % 0.1 % 0.1 % Simvastatin Simvastatin No 1{table QD Simvastati 10 MG 10 MG t_in_th n 10 MG e_eveni ng} Aspir-81 81 Aspir-81 81 No 1{table QD Aspir-81 MG MG t} 81 MG Triamcinolo Triamcinolo No 1{appli Triamcinol ne ne cation} one Acetonide Acetonide Acetonide 0.1 % 0.1 % 0.1 % Simvastatin Simvastatin No 1{table QD Simvastati 10 MG 10 MG t_in_th n 10 MG e_eveni ng} Aspir-81 81 Aspir-81 81 No 1{table QD Aspir-81 MG MG t} 81 MG Triamcinolo Triamcinolo No 1{appli Triamcinol ne ne cation} one Acetonide Acetonide Acetonide 0.1 % 0.1 % 0.1 % Simvastatin Simvastatin No 1{table QD Simvastati 10 MG 10 MG t_in_th n 10 MG e_eveni ng} Aspir-81 81 Aspir-81 81 No 1{table QD Aspir-81 MG MG t} 81 MG Triamcinolo Triamcinolo No 1{appli Triamcinol ne ne cation} one Acetonide Acetonide Acetonide 0.1 % 0.1 % 0.1 % Simvastatin Simvastatin No 1{table QD Simvastati 10 MG 10 MG t_in_th n 10 MG e_eveni ng} Aspir-81 81 Aspir-81 81 No 1{table QD Aspir-81 MG MG t} 81 MG Triamcinolo Triamcinolo No 1{appli Triamcinol ne ne cation} one Acetonide Acetonide Acetonide 0.1 % 0.1 % 0.1 % Simvastatin Simvastatin No 1{table QD Simvastati 10 MG 10 MG t_in_th n 10 MG e_eveni ng} Aspir-81 81 Aspir-81 81 No 1{table QD Aspir-81 MG MG t} 81 MG Triamcinolo Triamcinolo No 1{appli Triamcinol ne ne cation} one Acetonide Acetonide Acetonide 0.1 % 0.1 % 0.1 % Simvastatin Simvastatin No 1{table QD Simvastati 10 MG 10 MG t_in_th n 10 MG e_eveni ng} Simvastatin Simvastatin No 1{table QD Simvastati 10 MG 10 MG t_in_th n 10 MG e_eveni ng} Aspir-81 81 Aspir-81 81 No 1{table QD Aspir-81 MG MG t} 81 MG Triamcinolo Triamcinolo No 1{appli Triamcinol ne ne cation} one Acetonide Acetonide Acetonide 0.1 % 0.1 % 0.1 % Aspir-81 81 Aspir-81 81 No 1{table QD Aspir-81 MG MG t} 81 MG Simvastatin Simvastatin No 1{table QD Simvastati 10 MG 10 MG t_in_th n 10 MG e_eveni ng} Naproxen Naproxen No BID Naproxen 250 MG 250 MG 250 MG Triamcinolo Triamcinolo No 1{appli Triamcinol ne ne cation} one Acetonide Acetonide Acetonide 0.1 % 0.1 % 0.1 % Aspir-81 81 Aspir-81 81 No 1{table QD Aspir-81 MG MG t} 81 MG Simvastatin Simvastatin No 1{table QD Simvastati 10 MG 10 MG t_in_th n 10 MG e_eveni ng} Naproxen Naproxen No BID Naproxen 250 MG 250 MG 250 MG Triamcinolo Triamcinolo No 1{appli Triamcinol ne ne cation} one Acetonide Acetonide Acetonide 0.1 % 0.1 % 0.1 % Naproxen Naproxen No BID Naproxen 250 MG 250 MG 250 MG Triamcinolo Triamcinolo No 1{appli Triamcinol ne ne cation} one Acetonide Acetonide Acetonide 0.1 % 0.1 % 0.1 % Aspir-81 81 Aspir-81 81 No 1{table QD Aspir-81 MG MG t} 81 MG Simvastatin Simvastatin No 1{table QD Simvastati 10 MG 10 MG t_in_th n 10 MG e_eveni ng} Triamcinolo Triamcinolo No 1{appli Triamcinol ne ne cation} one Acetonide Acetonide Acetonide 0.1 % 0.1 % 0.1 % Triamcinolo Triamcinolo No 1{appli Triamcinol ne ne cation} one Acetonide Acetonide Acetonide 0.1 % 0.1 % 0.1 % Vital Signs Vital Name Observation Time Observation Value Comments Source height 2022-09-07 10:20:00 69 [in_i] [facility] weight 2022-09-07 10:20:00 152.0 [lb_av] [facility] temperature 2022-09-07 10:20:00 97.7 [degF] [facility] bmi 2022-09-07 10:20:00 22.44 kg/m2 [facility] oximetry 2022-09-07 10:20:00 97 % [facility] respiratory rate 2022-09-07 10:20:00 17 /min Comm on [facility] blood pressure 2022-09-07 10:20:00 116 mm[Hg] [facility] - systolic [facility] blood pressure 2022-09-07 10:20:00 65 mm[Hg] [facility] - diastolic [facility] Body temperature 2022-08-21 19:16:00 37 Cristina [facility] Body height 2022-08-21 19:16:00 167.6 cm [facility] Body weight 2022-08-21 19:16:00 68.947 kg [facility] BMI 2022-08-21 19:16:00 24.53 kg/m2 [facility] Body temperature 2022-07-24 17:34:00 36 Cristina [facility] Body height 2022-07-24 17:34:00 175.3 cm [facility] Body weight 2022-07-24 17:34:00 70.761 kg [facility] BMI 2022-07-24 17:34:00 23.04 kg/m2 [facility] height 2022-07-01 10:00:00 69 [in_i] [facility] weight 2022-07-01 10:00:00 151 [lb_av] [facility] temperature 2022-07-01 10:00:00 98.4 [degF] [facility] bmi 2022-07-01 10:00:00 22.3 kg/m2 [facility] oximetry 2022-07-01 10:00:00 97 % [facility] respiratory rate 2022-07-01 10:00:00 17 /min [facility] blood pressure 2022-07-01 10:00:00 130 mm[Hg] [facility] - systolic [facility] blood pressure 2022-07-01 10:00:00 71 mm[Hg] [facility] - diastolic [facility] Systolic blood 2022-06-16 17:04:00 156 mm[Hg] [facility] Diastolic blood 2022-06-16 17:04:00 78 mm[Hg] Unive rsity of pressure [facility] Heart rate 2022-06-16 17:04:00 68 /min [facility] Body temperature 2022-06-16 17:04:00 36.33 Cristina [facility] Respiratory rate 2022-06-16 17:04:00 21 [facility] 2022-06-16 17:04:00 96 /min [facility] Arterial blood by [facility] Pulse oximetry [place] Body height 2022-06-15 00:00:00 175.3 cm [facility] Body weight 2022-06-15 00:00:00 70.761 kg [facility] BMI 2022-06-15 00:00:00 23.04 kg/m2 [facility] height 2022-05-19 10:15:00 69 [in_i] [facility] weight 2022-05-19 10:15:00 156 [lb_av] [facility] temperature 2022-05-19 10:15:00 98.7 [degF] [facility] - [facility] bmi 2022-05-19 10:15:00 23.03 kg/m2 [facility] - [facility] blood pressure 2022-05-19 10:15:00 128 mm[Hg] [facility] - systolic [facility] blood pressure 2022-05-19 10:15:00 74 mm[Hg] [facility] - diastolic [facility] height 2022-05-08 09:20:00 69 [in_i] [facility] weight 2022-05-08 09:20:00 156.3 [lb_av] [facility] temperature 2022-05-08 09:20:00 97.8 [degF] [facility] bmi 2022-05-08 09:20:00 23.08 kg/m2 [facility] oximetry 2022-05-08 09:20:00 98 % [facility] respiratory rate 2022-05-08 09:20:00 18 /min [facility] blood pressure 2022-05-08 09:20:00 124 mm[Hg] [facility] - systolic [facility] blood pressure 2022-05-08 09:20:00 65 mm[Hg] [facility] - diastolic [facility] height 2022-04-27 15:00:00 69 [in_i] [facility] weight 2022-04-27 15:00:00 158 [lb_av] [facility] bmi 2022-04-27 15:00:00 23.33 kg/m2 [facility] blood pressure 2022-04-27 15:00:00 121 mm[Hg] [facility] - systolic [facility] blood pressure 2022-04-27 15:00:00 76 mm[Hg] [facility] - diastolic [facility] height 2022-03-09 15:00:00 69 [in_i] [facility] - [facility] weight 2022-03-09 15:00:00 158.7 [lb_av] [facility] bmi 2022-03-09 15:00:00 23.43 kg/m2 [facility] - [facility] blood pressure 2022-03-09 15:00:00 128 mm[Hg] [facility] - systolic [facility] blood pressure 2022-03-09 15:00:00 78 mm[Hg] [facility] - diastolic [facility] height 2022-02-18 14:40:00 69 [in_i] [facility] - [facility] weight 2022-02-18 14:40:00 157.5 [lb_av] [facility] temperature 2022-02-18 14:40:00 98.2 [degF] [facility] bmi 2022-02-18 14:40:00 23.26 kg/m2 [facility] oximetry 2022-02-18 14:40:00 95 % [facility] respiratory rate 2022-02-18 14:40:00 18 /min [facility] on [facility] blood pressure 2022-02-18 14:40:00 115 mm[Hg] [facility] - systolic [facility] blood pressure 2022-02-18 14:40:00 69 mm[Hg] [facility] - diastolic [facility] height 2022-02-02 11:40:00 69 [in_i] [facility] weight 2022-02-02 11:40:00 175 [lb_av] [facility] temperature 2022-02-02 11:40:00 98 [degF] [facility] bmi 2022-02-02 11:40:00 25.84 kg/m2 [facility] blood pressure 2022-02-02 11:40:00 128 mm[Hg] [facility] - systolic [facility] blood pressure 2022-02-02 11:40:00 75 mm[Hg] [facility] - diastolic [facility] height 2021-11-05 09:50:00 69 [in_i] [facility] weight 2021-11-05 09:50:00 175 [lb_av] [facility] temperature 2021-11-05 09:50:00 97.4 [degF] [facility] bmi 2021-11-05 09:50:00 25.84 kg/m2 [facility] height 2021-10-01 14:20:00 69 [in_i] [facility] weight 2021-10-01 14:20:00 167.0 [lb_av] [facility] bmi 2021-10-01 14:20:00 24.66 kg/m2 [facility] bmi 2021-06-30 10:20:00 24.66 kg/m2 [facility] oximetry 2021-06-30 10:20:00 98 % [facility] respiratory rate 2021-06-30 10:20:00 17 /min [facility] blood pressure 2021-06-30 10:20:00 132 mm[Hg] [facility] - systolic [facility] blood pressure 2021-06-30 10:20:00 76 mm[Hg] [facility] - diastolic [facility] height 2021-06-30 10:20:00 69 [in_i] [facility] weight 2021-06-30 10:20:00 167.0 [lb_av] [facility] temperature 2021-06-30 10:20:00 98.1 [degF] Common [facility] height 2021-06-06 16:20:00 69 [in_i] Common [facility] weight 2021-06-06 16:20:00 165.6 [lb_av] [facility] - [facility] temperature 2021-06-06 16:20:00 96.8 [degF] Common [facility] bmi 2021-06-06 16:20:00 24.45 kg/m2 [facility] oximetry 2021-06-06 16:20:00 98 % [facility] respiratory rate 2021-06-06 16:20:00 18 /min Comm [facility] blood pressure 2021-06-06 16:20:00 120 mm[Hg] [facility] - systolic [facility] blood pressure 2021-06-06 16:20:00 80 mm[Hg] [facility] - diastolic [facility] Systolic (mm Hg) 2022-09-02 15:02:00 Jairo rial [facility] Diastolic (mm Hg) 2022-09-02 15:02:00 Mem orial [facility] Heart Rate 2022-09-02 15:02:00 [facility] 2022-09-02 15:02:00 5 [ft_i] [facility] 2022-09-02 15:02:00 [facility] Aryan BMI Calculated 2022-09-02 15:02:00 Memori al [facility] Systolic (mm Hg) 2022-05-27 14:11:00 Jairo rial [facility] Diastolic (mm Hg) 2022-05-27 14:11:00 [facility] [place] Heart Rate 2022-05-27 14:11:00 [facility] [place] Respitory Rate 2022-05-27 14:11:00 [facility] [place] Weight 2022-05-27 14:11:00 [facility] Heart Rate 2021-11-26 15:18:00 [facility] [place] Respitory Rate 2021-11-26 15:18:00 [facility] Height 2021-11-26 15:18:00 167.64 cm [facility] [place] Weight 2021-11-26 15:18:00 [facility] [place] BMI Calculated 2021-11-26 15:18:00 Memori al [facility] Systolic (mm Hg) 2021-11-26 15:18:00 [facility] [place] Diastolic (mm Hg) 2021-11-26 15:18:00 [facility] [place] Systolic (mm Hg) 2021-08-25 15:12:00 [facility] [place] Diastolic (mm Hg) 2021-08-25 15:12:00 Mem [facility] Heart Rate 2021-08-25 15:12:00 [facility] [place] Respitory Rate 2021-08-25 15:12:00 [facility] Height 2021-08-25 15:12:00 160.02 cm [facility] Weight 2021-08-25 15:12:00 [facility] [place] BMI Calculated 2021-08-25 15:12:00 [facility] [place] Systolic (mm Hg) 2021-05-23 19:27:00 Jairo rial [facility] Diastolic (mm Hg) 2021-05-23 19:27:00 [facility] [place] Heart Rate 2021-05-23 19:27:00 [facility] [place] Respitory Rate 2021-05-23 19:27:00 [facility] [place] Height 2021-05-23 19:27:00 165.1 cm [facility] [place] Weight 2021-05-23 19:27:00 [facility] [place] BMI Calculated 2021-05-23 19:27:00 Memori al [facility] Procedures Procedure Date / Time Performing Clinician Source Performed [facility] PATIENT FINANCIAL 2022-12-04 18:30:59 Doctor Unassigned, [facility] POLICY [facility] EXTERNAL PROVIDER RECORDS 2022-06-25 05:01:00 Doctor Unassigned, [facility] CT ABDOMEN PELVIS WO 2022-06-17 16:31:57 Derek Newton [facility] CONTRAST Medical Branch MAGNESIUM 2022-06-16 16:07:00 Derek Newton [facility] BASIC METABOLIC PANEL 2022-06-16 16:07:00 Derek Newton [facility] (NA, K, CL, CO2, GLUCOSE, Medica l Branch BUN, CREATININE, CA) CBC WITHOUT DIFF 2022-06-16 16:07:00 Derek Newton [facility] URIC ACID 2022-06-15 03:59:00 Jose Shields [facility] MAGNESIUM 2022-06-15 03:59:00 [facility] 2022-06-15 03:59:00 Jose Shields [facility] ([id number]) (ALB,T.PRO,BILI Medical Branch T,BU/BC,ALT,AST,ALK PHOS) BASIC METABOLIC PANEL 2022-06-15 03:59:00 [facility] (NA, K, CL, CO2, GLUCOSE, Medica l Branch BUN, CREATININE, CA) CBC WITH DIFF 2022-06-15 03:59:00 [facility] ANTI-NUCLEAR ANTIBODY 2022-06-15 03:57:00 Jose Shields [facility] SCREEN [facility] BLOOD CULTURE SCREEN 2022-06-15 03:56:00 Jose Shields [facility] PROTHROMBIN TIME / INR 2022-06-15 03:56:00 Jose Shields [facility] ACTIVATED PARTIAL 2022-06-15 03:56:00 [facility] G[facility]LE [facility] XR CHEST 1 VW 2022-06-15 03:05:00 [facility] 2+ VW LEFT 2022-06-15 03:05:00 Jose Shields [facility] ESTIMATED GFR 2022-06-01 17:22:00 [facility] [place] PARTIAL THROMBOPLASTIN 2022-06-01 17:22:00 [facility] TIME (PTT) [place] PROTHROMBIN TIME WITH INR 2022-06-01 17:22:00 [facility] [place] COMPREHENSIVE METABOLIC 2022-06-01 17:22:00 [facility] PANEL [place] HC COMPLETE BLD COUNT 2022-06-01 17:22:00 Mali Daniel Met [facility] W/AUTO DIFF [place] MRI UPPER EXTREMITY 2022-05-13 21:04:54 Mali Daniel [facility] EXTERNAL STUDY [place] AUTHORIZATION FOR RELEASE 2022-03-08 05:01:00 Doctor Unassigned, [facility] [place] [facility] XR SHOULDER 2+ VW LEFT 2021-10-30 18:57:00 Tiffanie Pat [facility] Plan of Care Planned Activity Planned Date Details Comments Source Future Scheduled 2023-03-22 [facility] Test 20:17:42 malignant neoplasm of colon (procedure) [code = 290954282] Future Scheduled 2023-03-22 [facility] Test 20:17:42 malignant neoplasm of colon (procedure) [code = 388505522] Future Scheduled 2023-03-22 [facility] Test 20:17:42 malignant neoplasm of colon (procedure) [code = 694472832] Future Scheduled 2023-03-22 COVID-19 VACCINE (#1) [facility] Test 20:17:42 [code = COVID-19 VACCINE (#1)] Future Scheduled 2023-03-22 Hepatitis C screening [facility] Test 20:17:42 (procedure) [code = 552996392] Future Scheduled 2023-03-22 [facility] 20:17:42 malignant neoplasm of colon (procedure) [code = 452443864] Future Scheduled 2023-03-22 [facility] Test 20:17:42 malignant neoplasm of colon (procedure) [code = 657589286] Future Scheduled 2023-03-22 SHINGLES VACCINES (1 Met [facility] Test 20:17:42 of 2) [code = SHINGLES VACCINES (1 of 2)] Future Scheduled 2023-03-22 INFLUENZA VACCINE [facility] Test 20:17:42 [code = INFLUENZA VACCINE] Future Scheduled 2022-06-11 HEPATITIS B VACCINES Met [facility] Test 08:27:28 (1 of 3 - 3-dose series) [code = HEPATITIS B VACCINES (1 of 3 - 3-dose series)] Future Scheduled 2022-06-11 COVID-19 VACCINE (#1) [facility] Test 08:27:28 [code = COVID-19 VACCINE (#1)] Future Scheduled 2022-06-11 Hepatitis C screening [facility] Test 08:27:28 (procedure) [code = 783229408] Future Scheduled 2022-06-11 COLONOSCOPY SCREENING [facility] Test 08:27:28 [code = COLONOSCOPY SCREENING] Future Scheduled 2022-06-11 SHINGLES VACCINES (1 Met [facility] Test 08:27:28 of 2) [code = SHINGLES VACCINES (1 of 2)] Future Scheduled 2022-06-11 INFLUENZA VACCINE [facility] Test 08:27:28 [code = INFLUENZA VACCINE] Future Scheduled 2022-06-11 HEPATITIS B VACCINES Met [facility] Test 08:27:28 (1 of 3 - 3-dose series) [code = HEPATITIS B VACCINES (1 of 3 - 3-dose series)] Future Scheduled 2022-06-11 COVID-19 VACCINE (#1) [facility] Test 08:27:28 [code = COVID-19 VACCINE (#1)] Future Scheduled 2022-06-11 Hepatitis C screening [facility] Test 08:27:28 (procedure) [code = 364717860] Future Scheduled 2022-06-11 COLONOSCOPY SCREENING [facility] Test 08:27:28 [code = COLONOSCOPY SCREENING] Future Scheduled 2022-06-11 SHINGLES VACCINES (1 Met [facility] Test 08:27:28 of 2) [code = SHINGLES VACCINES (1 of 2)] Future Scheduled 2022-06-11 INFLUENZA VACCINE Method [facility] Hospital Test 08:27:28 [code = INFLUENZA VACCINE] Future Scheduled 2022-06-05 HEPATITIS B VACCINES Met [facility] Test 15:03:14 (1 of 3 - 3-dose series) [code = HEPATITIS B VACCINES (1 of 3 - 3-dose series)] Future Scheduled 2022-06-05 COVID-19 VACCINE (#1) [facility] Test 15:03:14 [code = COVID-19 VACCINE (#1)] Future Scheduled 2022-06-05 Hepatitis C screening [facility] Test 15:03:14 (procedure) [code = 269459385] Future Scheduled 2022-06-05 COLONOSCOPY SCREENING [facility] Test 15:03:14 [code = COLONOSCOPY SCREENING] Future Scheduled 2022-06-05 SHINGLES VACCINES (1 Met [facility] Test 15:03:14 of 2) [code = SHINGLES VACCINES (1 of 2)] Future Scheduled 2022-06-05 INFLUENZA VACCINE Method [facility] Test 15:03:14 [code = INFLUENZA VACCINE] Encounters Start End Encounter Admission Attending Care Care Encounter Source Date/Time Date/Time Type Type Clinicians Facility Department ID 2022-09-03 [facility] [id number] Common 12:59:00 Juan Carlos [facility] 2022-06-30 Outpatient Adams, [facility] [id number] Common 11:28:00 Juan Carlos [facility] 2022-05-19 [facility] [id number] Common 14:17:02 Juan Carlos [facility] 2022-05-07 Outpatient Adams, [facility] [id number] Common 10:23:02 Juan Carlos [facility] 2022-03-10 Outpatient Adams, [facility] [id number] Common 12:11:00 Juan Carlos [facility] 2022-03-09 [facility] [id number] Common 14:45:01 Juan Carlos [facility] 2022-02-09 [facility] [id number] Common 08:24:02 Juan Carlos [facility] 2021-12-18 Outpatient Adams, [facility] [id number] Common 09:55:02 Juan Carlos [facility] 2021-10-29 Out[facility] [id number] Common 13:48:11 Juan Carlos [facility] 2021-10-29 Out[facility] [id number] Common 13:47:27 Juan Carlos [id number] [facility] 2021-10-29 Outpatient Adams, [facility] [id number] Common 13:45:51 Juan Carlos [id number] [facility] 2021-10-29 Outpatient Adams, [facility] [id number] Common 13:28:02 Juan Carlos [id number] [facility] 2021-10-29 Outpatient Adams, [facility] [id number] Common 13:27:44 Juan Carlos [id number] [facility] 2021-10-29 Outpatient Adams, STLMLC [facility] [id number] Common 13:16:51 Juan Carlos [id number] [facility] 2021-10-29 [facility] [id number] Common 13:16:31 Juan Carlos [id number] [facility] 2023-05-12 2023-05-12 Outpatient MHIE MHIE [id number] Memoria 10:00:00 10:00:00 06 isidra Baeza 2023-05-12 2023-05-12 Outpatient MHIE MHIE [id number] Memoria 10:00:00 10:00:00 06 isidra Baeza 2023-03-30 2023-03-30 Outpatient Tavon [facility] [id number] Univers 15:10:00 15:10:00 ISSAC [facility] 2023-03-19 2023-03-19 Outpatient Tavon [facility] [id number] Univers 12:30:00 12:30:00 ISSAC nita [facility] 2022-12-04 2022-12-04 Outpatient Tavon [facility] [id number] Univers 13:00:00 13:00:00 ISSAC nita [facility] 2022-12-04 2022-12-04 Orders Doctor SEMAJ 1.2.840.114 [id number] Univers 00:00:00 00:00:00 Only Unassigned, STEFFEN 350.1.13.10 ity of [place] [facility] 4.2.7.2.686 Mumtaz as [phone] [address] 2022-09-07 2022-09-07 OFFICE [facility] [id number] Co mmon 00:00:00 00:00:00 VISIT Vincent MAIN PT - CHI LEVEL 4 [facility] 2022-09-02 2022-09-03 Outpatient MHIE MNA [id number] Memoria 15:00:00 05:59:59 Neurology 05 isidra Baeza 2022-09-02 2022-09-03 Outpatient MHIE MNA [id number] Memoria 15:00:00 05:59:59 Neurology 05 isidra Baeza 2022-09-02 2022-09-02 Outpatient D[facility]IAL [facility]LELENA [facility] [id number] 09:00:00 23:59:59 Abhijeet Javon Davenport 2022-09-02 2022-09-02 Outpatient MHIE MHIE [id number] Memoria 09:00:00 09:00:00 05 isidra Baeza 2022-09-01 2022-09-01 (TEL) STLMLC STL[facility]C [id number] Co mmon 00:00:00 00:00:00 Spirit - [facility] 2022-08-26 2022-08-26 Travel 1.2.840.1 1.2.513.050 [id number] [id number] Methodi 00:00:00 00:00:[address] 3.430.2.7 0.2.7.3.698 Ho spita .3.870136 084.8 l .8 2022-08-21 2022-08-21 Office Raymundo [facility] 1.2.840.114 [id number] Univers 13:30:00 13:40:00 Visit Issac TAYLOR 350.1.13.10 ity of [facility] 4.2.7.2.686 Mark ALEXANDRA [phone] [place] [address] [place] 2022-08-21 2022-08-21 Outpatient Tavon [facility] [id number] Univers 13:30:00 13:30:00 ISSAC campos [facility] 2022-08-18 2022-08-18 Travel 1.2.840.1 1.2.918.411 [id number] [id number] Methodi 00:00:00 00:00:[address] 3.430.2.7 0.2.7.3.698 spita .3.976788 084.8 l .8 2022-08-05 2022-08-05 Outpatient GUU_SHENG_Y MEHOP MEHOP [id number] [place] 00:00:00 00:[place] [address] [facility] 2022-08-04 2022-08-04 Outpatient GUU_SHENG_Y MEHOP MEHOP 116 [id number] [place] 00:00:00 00:00:00 AW [facility] 2022-07-30 2022-07-30 (TEL) [facility] [id number] Mi mmon 00:00:00 00:00:00 [facility] 2022-07-29 2022-07-29 Outpatient GUU_SHENG_Y MEHOP MEHOP 116 [id number] [place] 00:00:00 00:00:00 AW [facility] 2022-07-28 2022-07-28 Outpatient GUU_SHENG_Y MEHOP MEHOP 116 357 [place] 00:00:00 00:00:00 AW [facility] 2022-07-24 2022-07-24 [facility] [id number] Univers 12:30:00 13:39:39 ISSAC campos [facility] 2022-07-24 2022-07-24 [facility] 1.2.840.114 [id number] Univers 12:30:00 13:39:39 Visit Issac TAYLOR 350.1.13.10 [facility] 4.2.7.2.686 Mark ALEXANDRA [phone] [address] 2022-07-22 2022-07-22 Outpatient GUU_SHENG_Y MEHOP MEHOP 116 357- [place] 00:00:00 00:[place] [address] [facility] 2022-07-21 2022-07-21 Outpatient GUU_SHENG_Y MEHOP MEHOP 116 357- [place] 00:00:00 00:00:00 [place] [address]228 [facility] 2022-07-03 2022-07-03 Outpatient GUU_SHENG_Y MEHOP MEHOP 116 357 [place] 00:00:00 00:00:00 AW [facility] 2022-07-02 2022-07-02 Outpatient GUU_SHENG_Y MEHOP MEHOP 116 357 [place] 00:00:00 00:00:00 AW [facility] 2022-07-01 2022-07-01 OFFICE [facility] [id number] Co mmon 00:00:00 00:00:00 VISIT Vincent MAIN PT - CHI LEVEL 4 [facility] 2022-06-25 2022-06-25 Orders Doctor SEMAJ 1.2.840.114 [id number] Univers 00:00:00 00:00:00 Only Unassigned, STEFFEN 350.1.13.10 ity of [facility] 4.2.7.2.686 Mumtaz as [phone] [facility] [address] Branch 2022-06-19 2022-06-19 Outpatient GUU_SHENG_Y MEHOP MEHOP 116 [place] 00:00:00 00:00:00 AW [facility] 2022-06-19 2022-06-19 (TEL) [facility] [id number] Co mmon 00:00:00 00:00:00 [facility] 2022-06-17 2022-06-17 Outpatient Tavon [facility] [id number] Univers 11:31:57 23:59:00 MADDIE itnita of [facility] 2022-06-17 2022-06-17 WAI [place] 1.2.840.114 [id number] Univers 11:31:57 23:59:00 Encounter Maddie GLYNN 350.1.13.10 ity of [facility] [place].7.2.[place] [id number] [facility] [address] 2022-06-17 2022-06-17 Outpatient GUU_SHENG_Y MEHOP MEHOP [id number] [facility] 00:00:00 00:00:00 AW [address] da [facility] 2022-06-14 2022-06-16 Outpatient U NANNETTE [facility] [id number] Univers 18:44:00 16:31:00 MADDIE ity [facility] 2022-06-14 2022-06-16 [facility] Maddie Brunson 1.2.840 .114 [id number] Univers 18:44:00 16:31:00 Encounter Boyd De Santiago Adriana BOURNE 350.1.13. 10 [facility] 4.2.7.2.686 Mumtaz as [phone] [address] 2022-06-01 2022-06-01 [facility], 1.2.840.1 [id number] 2 [id number] Methodi 11:13:39 23:59:00 Encounter Mali 33794.1.[address] [place] 3.430.2.7 Hospit a .3.096626 l .8 2022-06-01 2022-06-01 Office [place], 1.2.840.1 [id number] 21 [id number] Methodi 10:45:00 12:57:37 Visit Mali 05699.1.[address] [place] 3.430.2.7 Hospit a .3.532420 l .8 2022-06-01 2022-06-01 [facility], 1.2.840.1 [id number] 21 [id number] Methodi 10:45:00 12:57:37 Visit [place]i 01988.1.[address] [place] 3.430.2.7 Hospit a .3.409442 l .8 2022-06-01 2022-06-01 [facility], 1.2.840.1 [id number] 21 [id number] Methodi 12:05:00 12:10:[address] [place] 3.430.2.7 Hospit a .3.924653 l .8 2022-06-01 2022-06-01 [facility], 1.2.840.1 [id number] 21 [id number] Methodi 12:05:00 12:10:[address] [place] 3.430.2.7 Hospit a .3.374627 l .8 2022-06-01 2022-06-01 [facility], 1.2.840.1 [id number] 21 [id number] Methodi 00:00:00 00:00:00 Only [place] [address]119.1.[address] [place] 3.430.2.7 Hospit a .3.359991 l .8 2022-06-01 2022-06-01 [facility], 1.2.840.1 [id number] 2 [id number] Candia 00:00:00 00:00:00 Encounter MALI 94171.1.1 [address] .3.102612 .8 2022-06-01 2022-06-01 Travel 1.2.840.1 1.2.097.512 3422 [id number] Methodi 00:00:00 00:00:[address] 3.430.2.7 0.2.7.3.698 Ho spita .3.729742 084.8 l .8 2022-06-01 2022-06-01 Travel 1.2.840.1 1.2.608.080 3438 [id number] Methodi 00:00:00 00:00:[address] 3.430.2.7 0.2.7.3.698 Ho spita .3.976621 084.8 l .8 2022-06-01 2022-06-01 [facility], 1.2.840.1 [id number] 21 [id number] Methodi 00:00:00 00:00:00 Only [place] 19346.1.[address] [place] 3.430.2.7 Hospit a .3.699405 l .8 2022-05-27 2022-05-28 Outpatient nullFlavo MNA [id number] Memoria 14:00:00 04:59:59 r Neurology 04 l Hayes Urbanna 2022-05-27 2022-05-28 Outpatient nullFlavo MNA [id number] Memoria 14:00:00 04:59:59 r Neurology 04 l Jarvis Baeza 2022-05-27 2022-05-27 Outpatient DANIAL SotoMISCHER [facility] [id number] 09:00:00 23:59:59 Abhijeet Rolando Davenport 2022-05-27 2022-05-27 Outpatient DANIALIE PAXTON [id number] [facility] 09:00:00 09:00:00 04 l Aryan 2022-05-27 2022-05-27 (TEL) STLC STLC [id number] Co mmon 00:00:00 00:00:00 [facility] 2022-05-25 2022-05-25 (TEL) [facility] [id number] Co mmon 00:00:00 00:00:00 [facility] 2022-05-22 2022-05-22 Outpatient GUU_SHENG_Y MTHOP [facility] 116 [id number] [place] 00:00:00 00:00:00 [place] [address]91 [facility] 2022-05-21 2022-05-21 Outpatient GUU_SHENG_Y [facility] 116 [id number] [place] 00:00:00 00:00:00 [place] 62575 [facility] 2022-05-21 2022-05-21 Travel 1.2.840.1 1.2.044.898 [id number] [id number] Methodi 00:00:00 00:00:[address] 3.430.2.7 0.2.7.3.698 Ho spita .3.581569 084.8 l .8 2022-05-21 2022-05-21 (TEL) [facility] STLC [id number] Co mmon 00:00:00 00:00:00 [facility] 2022-05-21 2022-05-21 Travel 1.2.840.1 1.2.007.887 0306 [id number] Methodi 00:00:00 00:00:[address] 3.430.2.7 0.2.7.3.698 Ho spita .3.657715 084.8 l .8 2022-05-20 2022-05-20 (TEL) STLMLC STLMLC [id number] Co mmon 00:00:00 00:00:00 [facility] 2022-05-19 2022-05-19 OFFICE STLMLC STLMLC [id number] Co mmon 00:00:00 00:00:00 VISIT [facility] L[facility] 4 [facility] 2022-05-12 2022-05-12 Outpatient GUU_SHENG_Y MEHOP MEHOP [id number] [place] 00:00:00 00:00:00 AW [address] da [facility] 2022-05-11 2022-05-11 (TEL) STLMLC STLMLC [id number] Co mmon 00:00:00 00:00:00 [facility] 2022-05-08 2022-05-08 PREV VISIT STLMLC STLMLC [id number] Common 00:00:00 00:00:00 EST AGE [facility] 40-64 [facility] 2022-05-05 2022-05-05 (TEL) STLMLC STLMLC [id number] Co mmon 00:00:00 00:00:00 [facility] 2022-04-29 2022-04-29 (TEL) STLMLC STLMLC [id number] Co mmon 00:00:00 00:00:00 [facility] 2022-04-27 2022-04-27 OFFICE STLMLC STLMLC [id number] Co mmon 00:00:00 00:00:00 VISIT [facility] PT [facility] LEVEL 4 [facility] 2022-04-27 2022-04-27 (TEL) STLMLC STLMLC [id number] Co mmon 00:00:00 00:00:00 [facility] 2022-04-08 2022-04-08 Outpatient GUU_SHENG_Y MEHOP MEHOP 116 [id number] [place] 10:56:00 10:56:00 AW [facility] 2022-04-06 2022-04-06 Outpatient NYLAU_WILDERG_Y [facility] 116 [place] 11:51:00 11:51:00 AW [facility] 2022-03-09 2022-03-09 OFFICE STLMLC STLMLC [id number] Co mmon 00:00:00 00:00:00 VISIT NEW Spir it PT LEVEL 4 - [facility] 2022-03-08 2022-03-08 Orders Doctor SEMAJ 1.2.840.114 [id number] Univers 00:00:00 00:00:00 Only Unassigned, STEFFEN 350.1.13.10 [facility] 4.2.7.2.686 Mumtaz as [phone] [place] [address] [place] 2022-03-04 2022-03-04 Outpatient NYLAU_WILDERG_Y [facility] 116 [place] 11:27:00 11:27:00 AW [facility] 2022-02-18 2022-02-18 (TEL) STLMLC STLMLC [id number] Co mmon 00:00:00 00:00:00 [facility] 2022-02-18 2022-02-18 OFFICE STLMLC STLMLC [id number] Co mmon 00:00:00 00:00:00 VISIT EST Spir it PT LEVEL 3 - [facility] 2022-02-18 2022-02-18 (TEL) STLMLC STLMLC [id number] Co mmon 00:00:00 00:00:00 [facility] 2022-02-10 2022-02-10 (TEL) STLMLC STLMLC [id number] Co mmon 00:00:00 00:00:00 [facility] 2022-02-05 2022-02-05 (TEL) STLMLC STLMLC [id number] Co mmon 00:00:00 00:00:00 [facility] 2022-02-02 2022-02-02 OFFICE [facility] [id number] Co mmon 00:00:00 00:00:00 VISIT EST Spir it PT LEVEL 3 - [facility] 2022-01-14 2022-01-14 Outpatient GUU_SHENG_Y MEHOP MEHOP 116 [id number] [place] 03:25:00 03:25:00 AW [facility] 2022-01-13 2022-01-13 Outpatient GUU_SHENG_Y MEHOP MEHOP 116 357 [place] 10:07:00 10:07:00 AW [facility] 2021-12-22 2021-12-22 Outpatient GUU_SHENG_Y MEHOP MEHOP 116 357 [place] 11:02:00 11:02:00 AW [facility] 2021-12-10 2021-12-10 Outpatient GUU_SHENG_Y MEHOP MEHOP 116 357 [place] 11:08:00 11:08:00 AW [facility] 2021-11-26 2021-11-27 Outpatient nullFlavo MNA [id number] Memoria 15:15:00 05:59:59 r Neurology 03 l Jarvis Baeza 2021-11-26 2021-11-27 Outpatient nullFlavo MNA [id number] Memoria 15:15:00 05:59:59 r Neurology 03 l Jarvis Baeza 2021-11-26 2021-11-26 Outpatient DIANNE SotoSCHER [id number] 09:15:00 23:59:59 Abhijeet Dedrick Davenport 2021-11-26 2021-11-26 Outpatient MHIE JA [id number] Memoria 09:15:00 09:15:00 03 l Aryan 2021-11-21 2021-11-21 Outpatient GUU_SHENG_Y MEHOP MEHOP 116 [id number] [place] 01:31:00 01:31:00 AW [facility] 2021-11-17 2021-11-17 New Car Inspector Lab, Faraz - Amos [facility] 1.2.840.1 14 [id number] Univers 10:30:00 10:45:00 Visit Carlos Gary Adyoulike 350.1.13.10 ity [facility] 4.2.7.2.686 Mumtaz as PATRICIA?BLEA [phone] [address] MEDICAL OFFICE BUILDING 2021-11-17 2021-11-17 Outpatient R AVRUN [facility] [id number] Univers 10:30:00 10:30:00 SHIVA ity of [facility] 2021-11-07 2021-11-07 Outpatient GUU[place]SHENG_Y [place] [id number] [place] 09:42:00 09:42:00 AW [facility] 2021-11-06 2021-11-06 Outpatient GUU_SHENG_Y [place] [id number] [place] 06:28:00 06:28:00 AW [facility] 2021-11-05 2021-11-[address] [facility] [id number] Co mmon 00:00:00 00:00:00 VISIT EST Spir it PT LEVEL 3 - [facility] 2021-11-04 2021-11-04 Telephone WAI Pat 1.2.840.114 [id number] Univers 00:00:00 00:00:00 Tiffanie Y HEALTH 350.1.13.10 i ty of [facility] 4[place]2.7.2.[place] [phone] [facility] [address] 2021-10-30 2021-10-30 Outpatient R VASU MCDERMOTT [facility] 10 [id number] Univers 12:32:56 23:59:00 VASU MCDERMOTT i ty of [facility] 2021-10-30 2021-10-30 [facility] [place] McdermottIT 1.2.840.114 [id number] Univers 12:32:56 23:59:00 Encounter Vasu Pereyra Y HEALTH 350.1.13.10 ity of [place]2.[place] [id number] [facility] [address] [place] 2021-10-30 2021-10-30 Outpatient R VASU MCDERMOTT [facility] 10 [id number] Univers 12:32:56 12:32:56 VASU MCDERMOTT i [facility] 2021-10-30 2021-10-30 Office Marvin Liu UNIVERSIT 1.2.840. 114 [id number] Univers 11:15:00 12:31:56 Visit Jc Katz HEALTH 350.1.13.10 ity of [place] [id number] [address] 2021-10-13 2021-10-13 New Car Inspector [facility] UNIVERSIT 1.2.840.114 [id number] Univers 10:15:00 10:15:00 Visit Desire Raymundo Nita HEALTH 350.1.13.1 0 [id number] [address] 2021-10-13 2021-10-13 Outpatient [facility] [id number] Univers 10:15:00 10:11:02 DESIRE campos [facility] 2021-10-13 2021-10-13 Outpatient Tavon [facility] [id number] Univers 10:15:00 10:11:02 DESIRE nita [facility] 2021-10-13 2021-10-13 WAI Pardo 1.2.840.114 [id number] Univers 00:00:00 00:00:00 Management Desire Yadiel Carbajal HEALTH [id number] [id number] [id number] [address] 2021-10-08 2021-10-08 Outpatient Tavon [facility] [id number] Univers 10:00:00 11:18:31 DESIRE campos [facility] 2021-10-08 2021-10-08 Outpatient Tavon [facility] [id number] Univers 10:00:00 11:18:31 DESIRE campos [facility] 2021-10-08 2021-10-08 Office Marvin Liu UNIVERSIT 1.2.840. 114 [id number] Univers 10:00:00 11:18:31 Visit Desire Raymundo Nita HEALTH 350.1.13.1 0 ity of CLINICS [id number] Mark thomas [id number] [address] 2021-10-08 2021-10-08 Outpatient Tavon [facility] [id number] Univers 10:00:00 11:18:31 DESIRE [facility] 2021-10-08 2021-10-08 Outpatient Tavon [facility] [id number] Univers 10:00:00 11:18:31 [facility] 2021-10-08 2021-10-08 Outpatient Tavon [facility] [id number] Univers 10:00:00 11:18:31 [facility] 2021-10-08 2021-10-08 Outpatient Tavon [facility] [id number] Univers 10:00:00 10:00:00 [facility] 2021-10-01 2021-10-[address] [facility] [id number] Co mmon 00:00:00 00:00:00 VISIT EST Spir it PT LEVEL 3 [facility] 2021-09-29 2021-09-29 (TEL) [facility] [id number] Co [place] 00:00:00 00:00:00 [facility] 2021-09-19 2021-09-19 Outpatient GUU_SHENG_[place] [id number] [place] 01:51:00 01:51:00 [place] [id number] [facility] 2021-09-18 2021-09-18 Outpatient GUU_SHENG_Y [facility] [id number] [place] 03:47:00 03:47:00 AW [id number] [facility] 2021-09-17 2021-09-17 Outpatient Tavon [facility] [id number] Univers 09:30:00 10:57:28 [facility] 2021-09-17 2021-09-17 Outpatient Tavon [facility] [id number] Univers 09:30:00 10:57:28 [facility] 2021-09-17 2021-09-17 Outpatient [facility] [id number] Univers 09:30:00 10:57:28 DESIRE [facility] 2021-09-17 2021-09-17 Outpatient Tavon [facility] [id number] Univers 09:30:00 10:57:28 DESIRE [facility] 2021-09-17 2021-09-17 Office Ann Delgado [facility] [id number] Univers 09:30:00 10:57:28 Visit Desire Ray[id number] Mumtazjoseph thomas [id number] [address] 2021-09-17 2021-09-17 Outpatient Tavon [facility] [id number] Univers 09:30:00 09:30:00 DESIRE [facility] 2021-08-25 2021-08-26 Outpatient nullFlavo MNA [id number] Memoria 15:15:00 05:59:59 r Neurology 02 isidra CasianoHayes Aryan 2021-08-25 2021-08-26 Outpatient nullFlavo MNA [id number] Memoria 15:15:00 05:59:59 r Neurology 02 isidra Baeza 2021-08-25 2021-08-25 Outpatient DIANNE SotoMISCHER [id number] 09:15:00 23:59:59 Abhijeet Livier [place] 2021-08-25 2021-08-25 Outpatient MHIE MHIE [id number] Memoria 09:15:00 09:15:00 02 isidra Baeza 2021-07-09 2021-07-09 Ambulatory nullFlavo MNA [id number] Memoria 14:15:00 14:15:00 Pre-Reg r Neurology 01 l Jarvis Baeza 2021-07-09 2021-07-09 Ambulatory nullFlavo MNA [id number] Memoria 14:15:00 14:15:00 Pre-Reg r Neurology 01 l Jarvis Baeza 2021-07-09 2021-07-09 Outpatient MHIE MHIE [id number] Memoria 09:15:00 09:15:00 01 l Aryan 2021-07-09 2021-07-09 Outpatient ANNIKA SotoSCHER MHMISCHER [id number] 09:15:00 09:15:00 Abhijeet 01 Issac 2021-07-09 2021-07-09 [facility] [id number] Co mmon 00:00:00 00:00:00 [facility] 2021-07-02 2021-07-02 Outpatient GUU_SHENG_Y MEHOP MEHOP [id number] [place] 11:34:00 11:[place] [id number] [facility] 2021-06-30 2021-06-[address] [facility] [id number] Co mmon 00:00:00 00:00:00 VISIT EST Spir it PT LEVEL 3 [facility] 2021-06-25 2021-06-25 Outpatient GUU_SHENG_Y MEHOP MTHOP [id number] [place] 10:44:00 10:44:00 [place] [id number] [facility] 2021-06-23 2021-06-23 Outpatient GUU_SHENG_Y MEHOP MEHOP [id number] [place] 03:14:00 03:14:00 [place] [id number] [facility] 2021-06-06 2021-06-[address] [facility] [facility] [id number] Co mmon 00:00:00 00:00:00 VISIT EST Spir it PT LEVEL 3 [facility] 2021-05-23 2021-05-24 Outpatient nullFlavo MNA [id number] Memoria 20:15:00 04:59:59 r Neurology 00 l Hayescharlene Martinann 2021-05-23 2021-05-24 Outpatient nullFlavo MNA [id number] Memoria 20:15:00 04:59:59 r Neurology 00 l Hayescharlene Martinann 2021-05-23 2021-05-23 Outpatient ANNIKA SotoSCHNICANOR ROBLEROSCHER [id number] 15:15:00 23:59:59 Abhijeet 00 Issac 2021-05-23 2021-05-23 Outpatient MHIE JA [id number] Memoria 15:15:00 15:15:00 00 isidra Baeza 2021-05-23 2021-05-23 Outpatient GUU_SHENG_Y MEHOP MEHOP [id number] [place] 02:20:00 02:20:00 AW [id number] [facility] 2021-05-21 2021-05-21 Outpatient GUU_SHENG_Y MTHOP [facility] [id number] [place] 10:55:00 10:55:00 [place] [id number] [facility] 2021-05-05 2021-05-05 Outpatient STLMLC STLMLC [id number] Common 00:00:00 00:00:00 [facility] 2021-04-22 2021-04-22 Outpatient STLMLC STLMLC [id number] Common 00:00:00 00:00:00 [facility] 2021-03-21 2021-03-21 Outpatient STLMLC STLMLC [id number] Common 00:00:00 00:00:00 [facility] Results This patient has no known results.
[2023-04-09 16:29] LABS: Absolute Lymphocytes (CBC) 1.2 K/uL (0.7-4.9); Hematocrit 33.3 % (39.6-49.0); MCV 74.9 fL (80-100); MPV 7.2 fL (7.6-11.3); RBC Red Blood Cell Count 4.45 M/uL (4.33-5.43)
[2023-04-09 16:31] LABS: Protime INR 1.27
[2023-04-09 16:37] LABS: Potassium 3.7 mEq/L (3.5-5.1)
--- NOTE | 2023-04-09 18:36 | RAD REPORT ---
EXAM DESCRIPTION: CT - CTHCSPWOC - 04/09/2023 5:49 pm CLINICAL HISTORY: Headache;Trauma COMPARISON: Thorax Wo Con dated 04/09/2023; Head Brain Wo Cont dated 06/11/2022 TECHNIQUE: Axial thin cut noncontrast CT images of the head were obtained. Axial thin cut noncontrast CT images of the cervical spine were obtained. Multiplanar reformatted images were generated and reviewed. All CT scans are performed using dose optimization technique as appropriate and may include automated exposure control or mA/KV adjustment according to patient size. FINDINGS: CT HEAD WITHOUT CONTRAST: No acute hemorrhage, hydrocephalus or extra-axial collection is identified.Stable encephalomalacia ce ntered on the left parietal and lateral temporal lobe, extending to the perisylvian temporal region. Ex vacuo dilation of the posterior left lateral ventricle, stable.No areas of brain edema or midline shift. The paranasal sinuses and mastoids are clear.The calvarium is intact. CT CERVICAL SPINE WITHOUT CONTRAST: No fracture or subluxation.Multilevel facet degenerative changes, with subchondral cystic changes gordo ng C2-3 facet articulations bilaterally, C3-4, and C4-5 facet articulations on the left. These are fa vored to be degenerative in nature.No prevertebral soft tissues swelling is identified. IMPRESSION: No acute traumatic intracranial or cervical spine findings. Stable left parietotemporal encephalomalacia, favored to represent sequelae of remote ischemia. Multilevel cervical spine degenerative changes as above.
--- NOTE | 2023-04-09 18:38 | RAD REPORT ---
EXAM DESCRIPTION: US - Extrem Venous W Compress Juan J - 04/09/2023 5:45 pm CLINICAL HISTORY: Pain, swelling COMPARISON: None. TECHNIQUE: Real-time sonographic evaluation of the bilateral lower extremity deep venous systems was performed. FINDINGS: Normal compressibility, flow augmentation, phasic flow and spontaneous flow is identified in both the left and right lower extremity deep venous systems. No intraluminal filling defects seen. Right subcutaneous tissue edema. IMPRESSION: No evidence of DVT in either lower extremity.
--- NOTE | 2023-04-09 18:52 | RAD REPORT ---
EXAM DESCRIPTION: CT - Thorax Wo Con - 04/09/2023 5:50 pm CLINICAL HISTORY: BLUNT CHEST TRAUMA COMPARISON: Head C Spine Mpr Wo Con dated 04/09/2023; Extrem Venous W Compress Juan J dated 04/09/2023; Terese st Abdomen Pelvis W Cont dated 06/14/2022 TECHNIQUE: Axial thin cut images of the chest were obtained without IV contrast. Multiplanar reforma ts were generated and reviewed. All CT scans are performed using dose optimization technique as appropriate and may include automated exposure control or mA/KV adjustment according to patient size. FINDINGS: No mass or infiltrate in the lung parenchyma. No pleural thickening or pleural effusion. N o pneumothorax. No abnormal mediastinal or hilar masses or lymphadenopathy seen. No significant aortic or pulmonary a rtery findings. Assessment is limited in the absence of IV contrast. No chest wall mass or abnormal axillary lymphadenopathy. Evaluation of the solid abdominal structures reveals no suspicious findings exophytic lateral left re nal mid pole 6.7 x 5.7 centimeter cyst is grossly stable. Subluxation of the left glenohumeral joint. Large joint effusion with linear ossific densities in the axillary recess. The effusion bulges most prominently along the posterior deltoid soft tissues. Umberto led appearance of the left humeral head articular surface. There may be a small defect along the infe rior margin of the glenoid. Scalloped appearance of the anterior aspect of the acromion, and distal e nd of the left clavicle, both are not completely imaged. Moderately enlarged left axillary lymph nodes, the largest measuring 2.2 centimeter in short axis. Right mid back 2.8 centimeter hypo dermal cystic lesion, most suggestive of a sebaceous cyst. IMPRESSION: Large left shoulder joint effusion, with subluxation of the glenohumeral joint. Mottled appearance of the articular surface of the humeral head, and scalloped appearance of the distal left clavicle and anterior aspect of the acromion, although these are incompletely imaged. Prominent left axillary lymph nodes. Possibility of inflammatory or septic arthritis should be considered. No other acute findings in the chest. The findings were communicated to Dennis Franco on 04/09/2023 at 18:47 hours.
[2023-04-09] MEDS ORDERED: LIDOCAINE 1% MPF 30 ML VIAL ONE (19:45)
--- NOTE | 2023-04-09 20:43 | EDPHYS ---
Physician Documentation [facility] Name: Jose Ny Age: 62 yrs Sex: Male : 1960 Arrival Date: 04/09/2023 Time: 15:35 Bed 17 Private MD: Nida Adamsh ED Physician Dennis Franco HPI: 04/09 15:57 This 62 yrs old Male presents to ER via Wheelchair with complaints of Fall Injury, rn Chest Pain, r/o blood clot. 15:57 Details of fall: The patient fell from an upright position. Onset: The symptoms/episode rn began/occurred yesterday. Associated injuries: The patient sustained injury to the head, injury to the chest. Severity of symptoms: At their worst the symptoms were moderate, in the emergency department the symptoms have improved. The patient has experienced similar episodes in the past. The patient has been recently seen by a physician:. Sent in today by pcp for evaluation and rule out blood clot in right leg. PCP noted swelling of RLE. No hx of dvt or PE. Denies pain to leg. Not involved in injury or fall. Reports hit head and has headache, no blood thinners. Also struck left chest and ribs are hurting. Denies back/neck/abd pain. . - Immunization history:: Adult Immunizations up to date. - Social history:: Smoking status: Patient denies any tobacco usage or history of. - Family history:: not pertinent. - Hospitalizations: : No recent hospitalization is reported. ROS: 15:57 Constitutional: Negative for fever, chills, and weight loss, Eyes: Negative for injury, rn pain, redness, and discharge, Neck: Negative for injury, pain, and swelling, Cardiovascular: + anterior chest wall pain Respiratory: Negative for shortness of breath, cough, wheezing, and pleuritic chest pain, Abdomen/GI: Negative for abdominal pain, nausea, vomiting, diarrhea, and constipation, Back: Negative for injury and pain, MS/Extremity: + swelling of both legs, R>L Skin: Negative for injury, rash, and discoloration, Neuro: + headache and generalized weakness Exam: 15:57 Constitutional: This is a well developed, well nourished patient who is awake, alert, rn and in no acute distress. Eyes: Pupils equal round and reactive to light, extra-ocular motions intact. Neck: No midline cervical tenderness Chest/axilla: + left anterior rib tenderness, no crepitus Cardiovascular: Regular rate and rhythm. No pulse deficits. Respiratory: No increased work of breathing, no retractions or nasal flaring. Abdomen/GI: soft, non-tender Back: No spinal tenderness. No costovertebral tenderness. Full range of motion. Skin: Warm, dry MS/ Extremity: Pulses equal, no cyanosis. bilateral pitting edema of lower ext, R>L circumference Neuro: Awake and alert, GCS 15 Vital Signs: 15:44 BP 126 / 68; Pulse 68; Resp 17; Temp 97.9; Pulse Ox 100% ; Weight 70.76 kg; os 16:38 BP 116 / 62; Pulse 66; Resp 18; Pulse Ox 97% on R/A; ld1 17:18 BP 109 / 64; Pulse 55; Resp 18; Pulse Ox 97% on R/A; ld1 19:30 BP 133 / 87; Pulse 75; Resp 18 S; Pulse Ox 97% on R/A; ha1 20:30 BP 135 / 90; Pulse 77; Resp 17 S; Temp 97.9; Pulse Ox 98% on R/A; ha1 21:30 BP 135 / 91; Pulse 83; Resp 18 S; Pulse Ox 97% on R/A; ha1 Procedures: 19:53 Joint Treatment: Aspiration of left shoulder using 18 gauge needle, using ultrasound rn guidance. Removed 10 ml's of clear fluid, yellow fluid, Dressed with band aid, Patient tolerated well. MDM: 15:44 Patient medically screened. rn 19:54 ED course: Pt consented and joint aspirated to rule out septic joint. Tolerated well. . rn 20:13 ED course: Family member reports his orthopedist tried to aspirate fluid from shoulder rn today or yesterday, unable to obtain fluid s/p lateral and posterior approach. TOld in past has gout in shoulder. CT shows inflammatory process in left shoulder that could be inflammatory arthritis or septic arthritis. CT also shows subluxation of shoulder joint consistent with the rotator cuff laxity/damage that family describes. Pt evaluated multiple times in past for left shoulder pain and swelling. I aspirated shoulder joint and sent fluid to rule out septic joint. Primary reason to be here was RLE swelling, no sign of infection and DVT u/s neg. . 20:39 Differential diagnosis: DVT, joint effusion, gout, inflammatory arthritis, septic rn arthritis. Data reviewed: vital signs, nurses notes, lab test result(s), radiologic studies, CT scan, and as a result, I will admit patient. Consideration of Admission/Observation Patient was admitted/placed on observation. Escalation of care including admission/observation considered. Counseling: I had a detailed discussion with the patient and/or guardian regarding: the historical points, exam findings, and any diagnostic results supporting the discharge/admit diagnosis, lab results, radiology results, the need to transfer to another facility, for higher level of care, [facility] does not immediately have the required specialist. ED course: Pt shoulder fluid neg for crystals, given large effusion, subluxation, and possible septic arthritis, decision made to initiate transfer to his orthopedist at [facility].. 20:59 ED course: Consulted with Dr. Kim, states believes is pseudogout, does not require turner in or further treatment unless gram stain has organisms or cell count consistent with septic arthritis. Will wait on rest of results. . 21:55 ED course: Lab called, no organisms seen on gram stain per hoisting laborer. Dr. Kim stated rn could go home if WBC on cell count < [id number] and no organisms, which are both true for this patient. Also, Dr. Kim has aspirated joint and confirmed pseudogout in past. Will dc home with return precautions. . 04/09 15:52 Order name: CBC with Diff; Complete Time: 17:00 rn 04/09 15:52 Order name: Basic Metabolic Panel; Complete Time: 17:00 rn 04/09 15:52 Order name: Protime (+inr); Complete Time: 17:00 rn 04/09 15:52 Order name: Ptt, Activated; Complete Time: 17:00 rn 04/09 19:53 Order name: Body Fluid Culture rn 04/09 19:53 Order name: Crystals, Fluid; Complete Time: 20:38 rn 04/09 19:53 Order name: Fluid Cell Count,Body; Complete Time: 21:24 rn 04/09 20:41 Order name: Blood Culture Adult (2) rn 04/09 20:41 Order name: CRP; Complete Time: 21:42 rn 04/09 15:52 Order name: Extrem Venous W Compression Juan J US; Complete Time: 18:45 rn 04/09 15:52 Order name: CT Head C Spine; Complete Time: 18:45 rn 04/09 15:52 Order name: CT Chest Wo Con; Complete Time: 18:54 rn 04/09 15:52 Order name: IV Start; Complete Time: 16:30 rn Administered Medications: 20:44 Drug: Lidocaine Infiltration (1 %) 30 ml {Note: administered by Dr. Franco during ha1 procedure.} Volume: 20 ml; Route: Infiltration; 20:59 Not Given (Duplicate Order): vancoMYCIN IVPB 1 grams IVPB once over 2 hrs rn 20:59 Not Given (Duplicate Order): Cefepime IVPB 1 grams IVPB at 200 ml/hr once over 30 mins; rn (mix in NS 100 mL) Disposition Summary: 04/09/23 21:57 Discharge Ordered Location: Home rn Problem: new(04/09/23 21:57) rn Symptoms: have improved(04/09/23 21:57) rn Condition: Stable(04/09/23 21:57) rn Diagnosis - Edema, unspecified rn - Inflammatory arthritis of left shoulder, suspected pseudogout rn Followup: rn - With: Private Physician - When: As needed - Reason: Recheck today's complaints, Re-evaluation by your physician Discharge Instructions: - Discharge Summary Sheet rn - Arthritis rn - Edema rn - Peripheral Edema rn Forms: - Medication Reconciliation Form rn - Thank You Letter rn - Antibiotic furnace converter - Prescription Opioid Use rn - [email or web address] rn Signatures: Dispatcher [employer] Dennis Mcbride MD MD rn Ayala, Heidy, RN RN [facility] Leticia Diamond RN RN os Corrections: (The following items were deleted from the chart) 15:47 15:46 PMHx: CVA; os os 15:47 15:46 PMHx: Hypercholesterolemia; os os 15:47 15:46 PMHx: Vertigo; os os 21:01 20:42 rn rn : 20:42 [facility]-System rn rn : 20:42 Higher level of care rn rn : 20:42 Stable rn rn 21:01 20:42 new rn rn : 20:42 are unchanged rn rn : 20:42 Anterior subluxation of left humerus, initial encounter - with effusion and rn possible septic arthritis. rn
--- NOTE | 2023-04-09 20:43 | ER ---
Nurse's Notes [facility] Name: Jose Ny Age: 62 yrs Sex: Male : 1960 Arrival Date: 04/09/2023 Time: 15:35 Bed 17 Private MD: Juan Carlos Adams Diagnosis: Edema, unspecified;Inflammatory arthritis of left shoulder, suspected pseudogout Presentation: 04/09 15:44 Chief complaint: Patient states: Left shoulder \T\ right leg pain, swelling \T\ redness for os the past 24 hrs. Coronavirus screen: At this time, the client does not indicate any symptoms associated with coronavirus-19. Ebola Screen: Patient denies travel to an Ebola-affected area in the 21 days before illness onset. No symptoms or risks identified at this time. Initial Sepsis Screen: Does the patient meet any 2 criteria? No. Patient's initial sepsis screen is negative. Does the patient have a suspected source of infection? No. Patient's initial sepsis screen is negative. Risk Assessment: Do you want to hurt yourself or someone else? Patient reports no desire to harm self or others. Onset of symptoms was April 08, 2023. 15:44 Method Of Arrival: Wheelchair os 15:44 Acuity: DREAD 3 os Triage Assessment: 15:47 General: Appears in no apparent distress. Behavior is calm, cooperative, appropriate os for age. Pain: Denies pain. Complains of pain in back of left arm, posterior chest and back of right leg. Neuro: Right sided numbness. Cardiovascular: No deficits noted. Respiratory: No deficits noted. GI: No deficits noted. - Immunization history:: Adult Immunizations up to date. - Social history:: Smoking status: Patient denies any tobacco usage or history of. - Family history:: not pertinent. - Hospitalizations: : No recent hospitalization is reported. Screenin:39 [facility] ED Fall Risk Assessment (Adult) History of falling in the last 3 months, ld1 including since admission No falls in past 3 months (0 pts). Abuse screen: Denies threats or abuse. Denies injuries from another. Nutritional screening: No deficits noted. Tuberculosis screening: No symptoms or risk factors identified. Assessment: 16:38 Reassessment: Patient and/or family updated on plan of care and expected duration. Pain ld1 level reassessed. Patient is alert, oriented x 3, equal unlabored respirations, skin warm/dry/pink. See triage assessment. 19:40 General: Appears uncomfortable, Behavior is calm, cooperative. Pain: Complains of pain ha1 in back of left arm Pain does not radiate. Pain currently is 5 out of 10 on a pain scale. Quality of pain is described as throbbing. Neuro: Level of Consciousness is awake, alert, obeys commands, Oriented to person, place, time, situation. Cardiovascular: Heart tones S1 S2 present. Respiratory: Airway is patent Respiratory effort is even, unlabored, Respiratory pattern is regular, symmetrical. Musculoskeletal: Range of motion: limited in right and left leg. 20:40 Reassessment: Patient and/or family updated on plan of care and expected duration. Pain ha1 level reassessed. Patient is alert, oriented x 3, equal unlabored respirations, skin warm/dry/pink. 21:40 Reassessment: Patient and/or family updated on plan of care and expected duration. Pain ha1 level reassessed. Patient is alert, oriented x 3, equal unlabored respirations, skin warm/dry/pink. 22:26 Reassessment: Patient and/or family updated on plan of care and expected duration. Pain ha1 level reassessed. Patient is alert, oriented x 3, equal unlabored respirations, skin warm/dry/pink. Vital Signs: 15:44 BP 126 / 68; Pulse 68; Resp 17; Temp 97.9; Pulse Ox 100% ; Weight 70.76 kg; os 16:38 BP 116 / 62; Pulse 66; Resp 18; Pulse Ox 97% on R/A; ld1 17:18 BP 109 / 64; Pulse 55; Resp 18; Pulse Ox 97% on R/A; ld1 19:30 BP 133 / 87; Pulse 75; Resp 18 S; Pulse Ox 97% on R/A; ha1 20:30 BP 135 / 90; Pulse 77; Resp 17 S; Temp 97.9; Pulse Ox 98% on R/A; ha1 21:30 BP 135 / 91; Pulse 83; Resp 18 S; Pulse Ox 97% on R/A; ha1 ED Course: 15:36 Patient arrived in ED. am2 15:36 Juan Carlos Adams DO is Private Physician. am2 15:44 Dennis Franco MD is Attending Physician. rn 15:46 Triage completed. os 15:59 Payton Jaramillo, RN is Primary Nurse. ld1 16:19 Initial lab(s) drawn, by me, sent to lab. Inserted saline lock: 20 gauge in left mm9 forearm, using aseptic technique. Blood collected. 16:20 Patient has correct armband on for positive identification. Placed in gown. Bed in low mm9 position. Call light in reach. Side rails up X2. Warm blanket given. telemetry monitor on. Pulse ox on. NIBP on. 16:39 No provider procedures requiring assistance completed. ld1 17:47 Extrem Venous W Compression Juan J US In Process Unspecified. EDMS 17:51 CT Head C Spine In Process Unspecified. EDMS 17:52 CT Chest Wo Con In Process Unspecified. EDMS 19:10 Arm band placed on right wrist. ha1 20:45 Initiated transfer to [facility] per Pt request, spoke with Kaylah. 20:52 [facility] called back for DrHarpreet to . 22:26 IV discontinued, intact, bleeding controlled, No redness/swelling at site. Pressure ha1 dressing applied. Administered Medications: 20:44 Drug: Lidocaine Infiltration (1 %) 30 ml {Note: administered by Dr. Franco during ha1 procedure.} Volume: 20 ml; Route: Infiltration; 20:59 Not Given (Duplicate Order): vancoMYCIN IVPB 1 grams IVPB once over 2 hrs rn 20:59 Not Given (Duplicate Order): Cefepime IVPB 1 grams IVPB at 200 ml/hr once over 30 mins; rn (mix in NS 100 mL) Medication: 16:39 VIS not applicable for this client. ld1 Outcome: 20:42 ER care complete, transfer ordered by MD. rn 21:57 Discharge ordered by MD. rn 22:26 Discharged to home via wheelchair, with family. ha1 22:26 Condition: stable 22:26 Discharge instructions given to patient, family, Instructed on discharge instructions, follow up and referral plans. Demonstrated understanding of instructions, follow-up care. 22:27 Patient left the ED. ha1 Signatures: Dispatcher [employer] EDMS Dennis Franco MD MD rn Moreno, Amanda am2 Payton Jaramillo RN RN ld1 Priscilla Hernandez Daysi Schafer RN RN ha1 Shelby Brown mm9 Leticia Diamond, RN RN os Corrections: (The following items were deleted from the chart) 15:47 15:46 PMHx: CVA; os os 15:47 15:46 PMHx: Hypercholesterolemia; os os 15:47 15:46 PMHx: Vertigo; os os 22: 20:40 General: Appears uncomfortable, Behavior is calm, cooperative, ha1 ha1 22: 20:40 Pain: Complains of pain in back of left arm Pain does not radiate. Pain currently ha1 is 5 out of 10 on a pain scale. Quality of pain is described as throbbing, ha1 : 20:40 Neuro: Level of Consciousness is awake, alert, obeys commands, Oriented to ha1 person, place, time, situation, ha1 : 20:40 Cardiovascular: Heart tones S1 S2 present ha1 ha1 : 20:40 Respiratory: Airway is patent Respiratory effort is even, unlabored, Respiratory ha1 pattern is regular, symmetrical, ha1 : 20:40 Musculoskeletal: Range of motion: limited in right and left leg ha1 ha1 22: 20:40 GI: ha1 ha1
[2023-04-09 21:23] LABS: Appearance VERY TURBID (CLEAR); Body Fluid Source SYNOVIAL; Body Fluid WBC 44251 /mm^3; Color of fluid Yellow (COLORLESS)
[2023-04-09 22:53] VITALS: TEMP 97.9
[2023-04-09 23:01] VITALS: BP 135/91; O2SAT 97
== END 2023-04-09 22:27 | disposition home or self-care (01) ==
LOC: ER 15:35
PROC: 0R9K3ZX Drainage of Left Shoulder Joint, Percutaneous Approach, Diagnostic (ICD-10-PCS; principal; 2023-04-09)
DX: M19.012 Primary osteoarthritis, left shoulder (principal); R07.89 Other chest pain
CPT/HCPCS: 87040 ×2; 87070; 85025; 80048; 36415; 89050; 85610; 85730; 89060; 86140; 70450; 71250; 72125; 93970; 99285; 10005; J2001

== ENCOUNTER 2023-09-08 15:55 | Emergency (ER) | payer OTHER ==
[2023-09-08 17:32] LABS: Absolute Lymphocytes (CBC) 1.5 K/uL (0.7-4.9); Hematocrit 31.2 % (39.6-49.0); Lymphocytes % 35.7 % (15.3-44.8); MCV 76.4 fL (80-100); MPV 6.6 fL (7.6-11.3); Platelets 284 thou/uL (152-406); RBC Red Blood Cell Count 4.08 M/uL (4.33-5.43)
[2023-09-08 17:36] LABS: Protime INR 1.35
--- NOTE | 2023-09-08 17:36 | RAD REPORT ---
EXAM DESCRIPTION: RAD - Chest Single View - 09/08/2023 5:06 pm CLINICAL HISTORY: DYSPNEA Chest pain. COMPARISON: Chest Single View dated 06/14/2022; Abdomen 1 View (KUB) dated 06/11/2022; Chest Single Vie w dated 06/11/2022; Chest Pa And Lat (2 Views) dated 08/11/2021 FINDINGS: Portable technique limits examination quality. The lungs are grossly clear. The heart is normal in size. No displaced fractures. IMPRESSION: No acute intrathoracic process suspected.
[2023-09-08 17:55] LABS: AST/SGOT 8 U/L (15-37); Albumin 2.6 g/dL (3.4-5.0); Alkaline Phosphatase 78 U/L (45-117); BUN Blood Urea Nitrogen 10 mg/dL (7-18); Bicarbonate 29 mEq/L (21-32); Bilirubin Direct 0.1 mg/dL (0-0.2); Bilirubin Indirect, Calculated 0.2 mg/dL (0.2-0.8); Bilirubin Total 0.3 mg/dL (0.2-1.0); Glomerular Filtration Rate 104 ml/min (=/>90); Glucose Level 91 mg/dL (74-106); NT PRO-BNP 303 pg/mL (<125); Protein, Total 7.1 g/dL (6.4-8.2); Sodium Level 141 mEq/L (136-145); Troponin High Sensitivity 4.1 pg/mL (<58.9)
--- NOTE | 2023-09-08 17:55 | RAD REPORT ---
EXAM DESCRIPTION: US - Extrem Venous W Compress Juan J - 09/08/2023 5:50 pm CLINICAL HISTORY: Pain;Swelling Bilateral leg edema and swelling. COMPARISON: Extrem Venous W Compress Juan J dated 04/09/2023 TECHNIQUE: Real-time sonographic interrogation of the left and right lower extremity deep venous sys tems was performed. FINDINGS: Normal compressibility, flow augmentation, phasic flow and spontaneous flow is identified in both the left and right lower extremity deep venous systems. IMPRESSION: No sonographic evidence of left or right lower extremity deep venous thrombosis.
[2023-09-08 18:00] LABS: ALT/SGPT < 10 U/L (16-61)
--- NOTE | 2023-09-08 18:03 | ER ---
Nurse's Notes [facility] Name: Jose Ny Age: 63 yrs Sex: Male : 1960 Arrival Date: 09/08/2023 Time: 15:55 Bed 17 Private MD: Diagnosis: Edema, unspecified Presentation: 09/08 16:29 Chief complaint: Patient states: LEG SWELLING AND FOOT SWELLING. Coronavirus screen: db Client denies travel out of the [place] in the last 14 days. At this time, the client does not indicate any symptoms associated with coronavirus-19. Ebola Screen: Patient negative for fever greater than or equal to 101.5 degrees Fahrenheit, and additional compatible Ebola Virus Disease symptoms Patient denies exposure to infectious person. Patient denies travel to an Ebola-affected area in the 21 days before illness onset. No symptoms or risks identified at this time. Initial Sepsis Screen: Does the patient meet any 2 criteria? No. Patient's initial sepsis screen is negative. Does the patient have a suspected source of infection? No. Patient's initial sepsis screen is negative. Risk Assessment: Do you want to hurt yourself or someone else? Patient reports no desire to harm self or others. Onset of symptoms was September 08, 2023. 16:29 Method Of Arrival: Wheelchair db 16:29 Acuity: DREAD 2 db Triage Assessment: 16:32 General: Appears in no apparent distress. comfortable, Behavior is calm, cooperative. db Pain: Complains of pain in right leg and left leg. Neuro: Level of Consciousness is awake, alert, obeys commands, Oriented to person, place, time, situation, Appropriate for age Speech with expressive aphasia noted. Respiratory: Airway is patent Respiratory effort is even, unlabored, Respiratory pattern is regular, symmetrical. Historical: - Allergies: 16:31 No Known Allergies; db - PMHx: 16:31 Cerebrovascular accident; db - Immunization history:: Adult Immunizations unknown. - Social history:: Smoking status: Patient denies any tobacco usage or history of. - Family history:: not pertinent. - Hospitalizations: : No recent hospitalization is reported. Screenin:35 [facility] ED Fall Risk Assessment (Adult) Score/Fall Risk Level 0 - 2 = Low Risk. Abuse eh3 screen: Denies threats or abuse. Denies injuries from another. Nutritional screening: No deficits noted. Tuberculosis screening: No symptoms or risk factors identified. Assessment: 16:35 General: Appears in no apparent distress. uncomfortable, Behavior is cooperative. Pain: eh3 Complains of pain in left leg and right leg. Neuro: Level of Consciousness is awake, alert, obeys commands, Oriented to person, place, time, situation. Cardiovascular: Capillary refill < 3 seconds Patient's skin is warm and dry. Edema is 2+ to left midcalf, left ankle, left shoulder, right midcalf and right ankle. Cardiovascular: Rhythm is sinus rhythm. Respiratory: Airway is patent Respiratory effort is even, unlabored, Respiratory pattern is regular, symmetrical. GI: Abdomen is round non-distended. Derm: Skin is pink, warm \\T\\ dry. Musculoskeletal: Circulation, motion, and sensation intact. 17:30 Reassessment: Patient appears in no apparent distress at this time. Patient and/or 3 family updated on plan of care and expected duration. Pain level reassessed. Patient is alert, oriented x 3, equal unlabored respirations, skin warm/dry/pink. 18:25 Reassessment: Pt does not want Lasix because he states he doesn't want to go home and eh3 then be walking back and forth to the bathroom to urinate. Offered urinal to take home, pt refused. Pt states he will take the Lasix if he can stay in the ED "for a while" and use the urinal. 18:30 Reassessment: Patient appears in no apparent distress at this time. Patient and/or eh3 family updated on plan of care and expected duration. Pain level reassessed. Patient is alert, oriented x 3, equal unlabored respirations, skin warm/dry/pink. Vital Signs: 16:29 BP 122 / 78; Pulse 78; Resp 18; Temp 98.7(TE); Pulse Ox 100% ; db 17:30 BP 136 / 78; Pulse 67; Resp 18; Pulse Ox 98% on R/A; eh3 18:30 BP 135 / 82; Pulse 68; Resp 18; Pulse Ox 99% on R/A; eh3 19:00 BP 146 / 85; Pulse 81; Resp 16; Pulse Ox 99% on R/A; eh3 ED Course: 16:02 Patient arrived in ED. mr 16:12 Dennis Franco MD is Attending Physician. rn 16:31 Triage completed. db 16:32 Arm band placed on left wrist. db 16:35 Loretta Gan, RN is Primary Nurse. eh3 16:35 Patient placed in an exam room. db 16:35 Patient has correct armband on for positive identification. Bed in low position. Call eh3 light in reach. Side rails up X2. Adult w/ patient. Provided Education on: use of call nguyen. Client placed on continuous cardiac and pulse oximetry monitoring. NIBP monitoring applied. 16:35 Inserted saline lock: 20 gauge in left antecubital area, using aseptic technique. Blood eh3 collected. 17:06 Chest Single View In Process Unspecified. EDMS 17:51 Extrem Venous W Compression Juan J US In Process Unspecified. EDMS 19:27 No provider procedures requiring assistance completed. IV discontinued, intact, eh3 bleeding controlled, No redness/swelling at site. Pressure dressing applied. Administered Medications: 18:20 Drug: traMADol PO 50 mg PO once Route: PO; eh3 19:05 Follow up: Response: No adverse reaction eh3 18:25 Drug: Furosemide IVP 20 mg IVP once; give over 2 minutes Route: IVP; Site: left eh3 antecubital; 19:05 Follow up: Response: No adverse reaction eh3 Medication: 19:27 VIS not applicable for this client. eh3 Outcome: 18:02 Discharge ordered by . rn 19:27 Discharged to home ambulatory, with family, eh3 19:27 Condition: stable 19:27 Discharge instructions given to patient, family, Instructed on discharge instructions, follow up and referral plans. Demonstrated understanding of instructions, follow-up care, 19:43 Patient left the ED. eh3 Signatures: Dispatcher [employer] [facility] Shea Carter, Reg Reg Dennis Garcia MD MD rn Hall, Erin, RN RN 3 Yusra Wheeler, VASHTI RN db Corrections: (The following items were deleted from the chart) 16:35 16:31 PMHx: Congestive heart failure; db db 19:03 17:20 Loretta Gan, VASHTI is Primary Nurse. eh3 eh3
--- NOTE | 2023-09-08 18:03 | EDPHYS ---
Physician Documentation [facility] Name: Jose Ny Age: 63 yrs Sex: Male : 1960 Arrival Date: 09/08/2023 Time: 15:55 Bed 17 Private MD: ED Physician Dennis Franco HPI: 09/08 16:39 This 63 yrs old Male presents to ER via Wheelchair with complaints of Leg Swelling, Leg rn Pain, Feet Swelling. 16:39 The patient presents with pain, swelling. The complaints affect the left leg and right rn leg. Onset: The symptoms/episode began/occurred 3 month(s) ago. Modifying factors: The symptoms are alleviated by nothing. the symptoms are aggravated by weight bearing. Associated signs and symptoms: Pertinent positives: swelling, Pertinent negatives fever, warmth, weakness. Severity of symptoms: At their worst the symptoms were moderate, in the emergency department the symptoms are unchanged. The patient has experienced similar episodes in the past. Patient and family member report swelling to bilateral lower extremities for 3 months. Has been seen for this with DVTs ruled out. Most recently given orders for outpatient echo, but having insurance problems obtaining study. Has seen PCP for this as well. Also has chronic shoulder issues that I have seen him before with a joint aspiration and his orthopedist believes it is pseudogout and rotator cuff injury. No acute injury or complaint other than chronic pain. No fever. No chest pain or shortness of breath. Family member states that he was complaining of pain again mainly to the right lower extremity so brought him in to see if there is anything we can do for the pain.. Historical: - Allergies: 16:31 No Known Allergies; db - PMHx: 16:31 Cerebrovascular accident; db - Immunization history:: Adult Immunizations unknown. - Social history:: Smoking status: Patient denies any tobacco usage or history of. - Family history:: not pertinent. - Hospitalizations: : No recent hospitalization is reported. ROS: 16:39 Constitutional: Negative for fever, chills, and weight loss, Eyes: Negative for injury, rn pain, redness, and discharge, Neck: Negative for injury, pain, and swelling, Cardiovascular: Negative for chest pain, palpitations Respiratory: Negative for shortness of breath, cough, wheezing, and pleuritic chest pain, Abdomen/GI: Negative for abdominal pain, nausea, vomiting, diarrhea, and constipation, MS/Extremity: Positive for swelling to both legs, right worse than left Skin: Negative for injury, rash, and discoloration, Neuro: Negative for headache, weakness, numbness, tingling, and seizure, Exam: 16:39 Constitutional: This is a well developed, well nourished patient who is awake, alert, rn and in no acute distress. Cardiovascular: Regular rate and rhythm. No pulse deficits. Respiratory: No increased work of breathing, no retractions or nasal flaring. MS/ Extremity: Pulses equal, no cyanosis. Neurovascular intact. Bilateral lower extremity edema, 2+ pitting, worse on the right. No open wounds or weeping. No masses. No signs of cellulitis. Neuro: Awake and alert, GCS 15 18:06 ECG was reviewed by the Attending Physician. rn Vital Signs: 16:29 BP 122 / 78; Pulse 78; Resp 18; Temp 98.7(TE); Pulse Ox 100% ; db 17:30 BP 136 / 78; Pulse 67; Resp 18; Pulse Ox 98% on R/A; eh3 18:30 BP 135 / 82; Pulse 68; Resp 18; Pulse Ox 99% on R/A; eh3 19:00 BP 146 / 85; Pulse 81; Resp 16; Pulse Ox 99% on R/A; eh3 MDM: 16:12 Patient medically screened. rn 17:55 ED course: technical services librarian gives verbal report of a negative DVT ultrasound study.. rn 18:01 Differential diagnosis: Edema, peripheral edema, lymphedema, congestive heart failure, rn DVT. Data reviewed: vital signs, nurses notes, lab test result(s), radiologic studies, plain films, ultrasound, and as a result, I will discharge patient. Counseling: I had a detailed discussion with the patient and/or guardian regarding the historical points, exam findings, and any diagnostic results supporting the discharge/admit diagnosis, lab results, radiology results, the need for outpatient follow up, to return to the emergency department if symptoms worsen or persist or if there are any questions or concerns that arise at home. Response to treatment: the patient's symptoms have mildly improved after treatment, and as a result, I will discharge patient. Special discussion: I discussed with the patient/guardian in detail that at this point there is no indication for admission to the hospital. It is understood, however, that if the symptoms persist or worsen the patient needs to return immediately for re-evaluation. ED course: Patient has outpatient echo ordered. DVT study negative here. No acute findings and workup here. 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 12 16:14 Order name: BMP; Complete Time: 18:02 rn 09/08 16:14 Order name: CBC with Diff; Complete Time: 17:48 rn 09/08 16:14 Order name: Hepatic Function; Complete Time: 18:02 rn 09/08 16:14 Order name: Magnesium; Complete Time: 18:02 rn 09/08 16:14 Order name: NT PRO-BNP; Complete Time: 18:02 rn 09/08 16:14 Order name: PT-INR; Complete Time: 17:48 rn 09/08 16:14 Order name: Ptt, Activated; Complete Time: 17:48 rn 09/08 16:14 Order name: Troponin HS; Complete Time: 18:02 rn 09/08 16:37 Order name: Extrem Venous W Compression Juan J US; Complete Time: 18:00 rn 06 17:06 Order name: Chest Single View; Complete Time: 17:48 EDMS 09/08 16:14 Order name: EKG; Complete Time: 16:15 rn 09/08 16:14 Order name: Cardiac monitoring; Complete Time: 17:20 rn 09/08 16:14 Order name: EKG - Nurse/Tech; Complete Time: 17:20 rn 09/08 16:14 Order name: IV Saline Lock; Complete Time: 17:20 rn 09/08 16:14 Order name: Labs collected and sent; Complete Time: 17:20 rn 09/08 16:14 Order name: O2 Per Protocol; Complete Time: 17:20 rn 09/08 16:14 Order name: O2 Sat Monitoring; Complete Time: 17:20 rn EC:06 Rate is 67 beats/min. Rhythm is regular. QRS [place] is Normal. WI interval is normal. QRS rn interval is normal. QT interval is normal. No Q waves. T waves are Normal. No ST changes noted. Clinical impression: Normal ECG. Interpreted by me. Reviewed by me. Administered Medications: 18:20 Drug: traMADol PO 50 mg PO once Route: PO; [facility] 19:05 Follow up: Response: No adverse reaction eh3 18:25 Drug: Furosemide IVP 20 mg IVP once; give over 2 minutes Route: IVP; Site: left 3 antecubital; 19:05 Follow up: Response: No adverse reaction 3 Disposition Summary: 09/08/23 18:02 Discharge Ordered Notes: Location: Home rn Problem: chronic rn Symptoms: have improved rn Condition: Stable rn Diagnosis - Edema, unspecified rn Followup: rn - With: Private Physician - When: As needed - Reason: Recheck today's complaints, Re-evaluation by your physician Discharge Instructions: - Discharge Summary Sheet rn - Edema rn - Peripheral Edema rn Forms: - Medication Reconciliation Form rn - Thank You Letter rn - Antibiotic criminal attorney - Prescription Opioid Use rn - Patient Portal Instructions rn - Leadership Thank You Letter rn Signatures: Dispatcher [employer] Dennis Mcbride MD MD rn Hall, Erin, RN RN 3 Yusra Wheeler RN RN db Corrections: (The following items were deleted from the chart) 16:35 16:31 PMHx: Congestive heart failure; db db 17:06 16:15 Chest Pa And Lat (2 Views)+RAD.RAD.BRZ ordered. EDMS EDMS
[2023-09-08] MEDS ORDERED: FUROSEMIDE 20 MG/ 2ML VIAL ONE (18:37)
[2023-09-08] MEDS ORDERED: TRAMADOL HCL 50 MG TAB ONE (18:37)
[2023-09-08 21:06] VITALS: TEMP 98.7
[2023-09-08 21:08] VITALS: O2SAT 99
[2023-09-08 21:10] VITALS: BP 146/85
== END 2023-09-08 19:43 | disposition home or self-care (01) ==
LOC: ER 15:55
DX: R60.9 Edema, unspecified (principal); Z86.73 Personal history of transient ischemic attack (TIA), and cerebral infarction without residual deficits
CPT/HCPCS: 93005; 85025; 80048; 36415; 83735; 85610; 80076; 85730; 84484; 83880; 71045; 93970; 96374; 99284; J1940

== ENCOUNTER → 2023-11-18 | Emergency (ER) | payer OTHER ==
[~2023-11-18] MED LIST: ACETAMINOPHEN 500 MG TAB ONE; KETOROLAC 30 MG/ML INJ ONE
--- NOTE | 2023-11-18 11:27 | RAD REPORT ---
EXAM DESCRIPTION: RAD - Ankle Right 3 View - 11/18/2023 11:18 am CLINICAL HISTORY: Right ankle pain FINDINGS: No fracture or dislocation is seen. A large calcaneal spur
--- NOTE | 2023-11-18 11:29 | RAD REPORT ---
EXAM DESCRIPTION: RAD - Tib Fib Right - 11/18/2023 11:17 am CLINICAL HISTORY: Right leg pain FINDINGS: No fracture is seen
--- NOTE | 2023-11-18 11:32 | RAD REPORT ---
EXAM DESCRIPTION: RAD - Knee Right 3 View - 11/18/2023 11:16 am CLINICAL HISTORY: Right knee pain status post injury FINDINGS: No fracture or dislocation is seen.
--- NOTE | 2023-11-18 11:41 | EDPHYS ---
Physician Documentation [facility] Name: Jose Ny Age: 63 yrs Sex: Male : 1960 Arrival Date: 11/18/2023 Time: 10:29 Bed 13 Private MD: [facility] ED Physician Holden Landis HPI: 11/18 10:53 This 63 yrs old Male presents to ER via Wheelchair with complaints of Ankle ec2 Injury. 10:53 Patient arrives today for complaints of a right ankle injury. Patient had reportedly ec2 twisted his ankle several days ago. No head injury, no neck pain. Patient with history of CVA, limited history given, history provided by sister.. Historical: - Allergies: 10:41 No Known Allergies; iw - PMHx: 10:41 Cerebrovascular accident; iw - Immunization history:: Adult Immunizations not up to date. - Social history:: Smoking status: Patient/guardian denies using tobacco, but has a distant history of tobacco abuse, Patient uses. ROS: 10:53 Constitutional: as per hpi ec2 Exam: 10:53 Constitutional: GEN: No acute distress HEENT: -Head: no deformities -Eyes: EOMI CV: ec2 regular rate LUNGS: no respiratory distress ABD: non-tender SKIN: no wounds appreciated MSK: No C/T/L spine deformities RUE w/o bony deformity LUE w/o bony deformity RLE with ecchymosis and TTP to the right ankle LLE w/o bony deformity NEURO: moves all extremities equally, GCS 15 (E4, V5, M6) Vital Signs: 10:39 BP 129 / 72; Pulse 74; Resp 16; Pulse Ox 98% on R/A; Weight 68.04 kg; Height 5 ft. 8 iw in. ; Pain 10/10; 10:54 BP 143 / 71; Pulse 77; Resp 17; Pulse Ox 99% on R/A; rs5 10:39 Body Mass Index 22.81 (68.04 kg, 172.72 cm) iw 10:39 Pain Scale: Adult iw MDM: 10:43 Patient medically screened. ec2 10:53 Data reviewed: vital signs. ED course: Patient arrives today for evaluation of right ec2 ankle pain. Examination remarkable for ankle findings noted above. Will obtain radiographs and assess for bony fracture versus possible contusion.. 11:40 ED course: Radiographs show no bony fracture, suspect ankle sprain. Will discharge ec2 home, instructed on [id number] medications. Return precautions given.. 11/18 10:52 Order name: Knee Right 3 View XRAY; Complete Time: 11:40 ec2 11/18 10:52 Order name: Tib Fib Right XRAY; Complete Time: 11:40 ec2 11/18 10:52 Order name: Ankle Right 3 View XRAY; Complete Time: 11:40 ec2 11/18 11:41 Order name: Agustin Wrap; Complete Time: 11:50 ec2 Administered Medications: 12:00 Drug: Acetaminophen PO 1000 mg PO once Route: PO; rs5 12:00 Drug: Ketorolac IM 30 mg IM once Route: IM; Site: left deltoid; rs5 Disposition Summary: 11/18/23 11:41 Discharge Ordered Notes: Location: Home ec2 Condition: Stable ec2 Diagnosis - Sprain of ankle ec2 Followup: ec2 - With: Private Physician - When: - Reason: Re-evaluation by your physician Discharge Instructions: - Discharge Summary Sheet ec2 - Ankle Sprain, [id number] ec2 Forms: - Medication Reconciliation Form ec2 - Thank You Letter ec2 - Antibiotic Education ec2 - Prescription Opioid Use ec2 - Patient Portal Instructions ec2 - Leadership Thank You Letter ec2 Signatures: Dispatcher [employer] Ysabel Maradiaga, RN VASHTI Robinson Broussard RN RN rs5 Holden Landis MD MD ec2
--- NOTE | 2023-11-18 11:41 | ER ---
Nurse's Notes [facility] Name: Jose Ny Age: 63 yrs Sex: Male : 1960 Arrival Date: 11/18/2023 Time: 10:29 Bed 13 Private MD: Juan Carlos Adams Diagnosis: Sprain of ankle Presentation: 11/18 10:39 Chief complaint: Friend and/or Co-Worker states: he fell Wednesday while trying to kill a cockroach, he fell on his right leg, he went to see his PCP today and they were worried that his right ankle was fractured, he can walk but there is a lot of pain. Coronavirus screen: At this time, the client does not indicate any symptoms associated with coronavirus-19. Ebola Screen: Patient negative for fever greater than or equal to 101.5 degrees Fahrenheit, and additional compatible Ebola Virus Disease symptoms Patient denies exposure to infectious person. No symptoms or risks identified at this time. Initial Sepsis Screen: Does the patient meet any 2 criteria? No. Patient's initial sepsis screen is negative. Does the patient have a suspected source of infection? No. Patient's initial sepsis screen is negative. Risk Assessment: Do you want to hurt yourself or someone else? Patient reports no desire to harm self or others. Onset of symptoms was November 14, 2022. 10:39 Method Of Arrival: Wheelchair iw 10:39 Acuity: DREAD 3 iw Historical: - Allergies: 10:41 No Known Allergies; iw - PMHx: 10:41 Cerebrovascular accident; iw - Immunization history:: Adult Immunizations not up to date. - Social history:: Smoking status: Patient/guardian denies using tobacco, but has a distant history of tobacco abuse, Patient uses. Screenin:40 [facility] ED Fall Risk Assessment (Adult) History of falling in the last 3 months, rs5 including since admission Yes- single mechanical fall (1 pt) Confusion or Disorientation No (0 pts) Intoxicated or Sedated No (0 pts) Impaired Gait Yes (1 pt) Mobility Assist Device Used Yes (1 pt) Altered Elimination No (0 pt) Score/Fall Risk Level 3 or more points = High Risk Oriented to surroundings, Maintained a safe environment. Abuse screen: Denies threats or abuse. Nutritional screening: No deficits noted. Tuberculosis screening: No symptoms or risk factors identified. Assessment: 10:30 General: Appears distressed, uncomfortable, Behavior is calm, cooperative, anxious. rs5 Pain: Complains of pain in right ankle Pain radiates to right hip Pain currently is 10 out of 10 on a pain scale. Quality of pain is described as aching, Is continuous. Neuro: Level of Consciousness is awake, alert, obeys commands, Oriented to person, place, time, situation. Cardiovascular: Rhythm is regular. Respiratory: Respiratory effort is even, unlabored, Respiratory pattern is regular, symmetrical. GI: Abdomen is round non-distended, Abd is soft and non tender X 4 quads. : No signs and/or symptoms were reported regarding the genitourinary system. EENT: No signs and/or symptoms were reported regarding the EENT system. Derm: Skin is intact, Skin is pink, warm \T\ dry. Musculoskeletal: Range of motion: limited in right lower extremity, swelling noted. 11:30 Reassessment: To bedside for you wrap of right ankle, pt tolerated procedure well. rs5 11:50 Reassessment: Patient and/or family updated on plan of care and expected duration. Pain rs5 level reassessed. Patient is alert, oriented x 3, equal unlabored respirations, skin warm/dry/pink. Patient states feeling better. Vital Signs: 10:39 BP 129 / 72; Pulse 74; Resp 16; Pulse Ox 98% on R/A; Weight 68.04 kg; Height 5 ft. 8 iw in. ; Pain 10/10; 10:54 BP 143 / 71; Pulse 77; Resp 17; Pulse Ox 99% on R/A; rs5 10:39 Body Mass Index 22.81 (68.04 kg, 172.72 cm) iw 10:39 Pain Scale: Adult iw ED Course: 10:31 Patient arrived in ED. rg4 10:32 Juan Carlos Adams DO is Private Physician. rg4 10:34 Holden Landis MD is Attending Physician. ec2 10:40 Patient has correct armband on for positive identification. Bed in low position. Call rs5 light in reach. Side rails up X2. 10:41 Triage completed. iw 10:41 Arm band placed on Patient placed in an exam room, on a stretcher. ll1 10:43 Robinson Broussard, RN is Primary Nurse. rs5 10:53 No provider procedures requiring assistance completed. rs5 11:18 Knee Right 3 View XRAY In Process Unspecified. EDMS 11:18 Tib Fib Right XRAY In Process Unspecified. EDMS 11:18 Ankle Right 3 View XRAY In Process Unspecified. EDMS 11:55 Patient did not have IV access during this emergency room visit. rs5 Administered Medications: 12:00 Drug: Acetaminophen PO 1000 mg PO once Route: PO; rs5 12:00 Drug: Ketorolac IM 30 mg IM once Route: IM; Site: left deltoid; rs5 Medication: 10:53 VIS not applicable for this client. rs5 Outcome: 11:41 Discharge ordered by . ec2 11:55 Discharged to home ambulatory, rs5 11:55 Condition: stable 11:55 Discharge instructions given to patient, Instructed on discharge instructions, follow up and referral plans. Demonstrated understanding of instructions, follow-up care, 12:00 Patient left the ED. rs5 Signatures: Dispatcher [employer] Ysabel Maradiaga, RN Lawanda Mills 4 Jonatan Torres RN RN ll1 Robinson Broussard, VASHTI RN rs5 Holden Landis MD MD ec2
[2023-11-18 12:16] VITALS: BP 143/71; O2SAT 99
== END ==
LOC: ER 10:29
DX: S93.401A Sprain of unspecified ligament of right ankle, initial encounter (principal)
CPT/HCPCS: 96372; 99284

== ENCOUNTER → 2023-11-20 | Emergency (ER) | payer OTHER ==
[~2023-11-20] MED LIST changes: +FENTANYL CITR 100 MCG/2 ML ONE; +ONDANSETRON 4 MG/2 ML VIAL ONE; +methocarbamoL 500 MG TAB ONE
--- NOTE | 2023-11-20 07:30 | RAD REPORT ---
EXAM DESCRIPTION: RAD - Ankle Right 3 View - 11/20/2023 5:12 am CLINICAL HISTORY: fall COMPARISON: Ankle Right 3 View dated 11/18/2023 FINDINGS/IMPRESSION: No acute fracture. No malalignment. Plantar aspect calcaneal spurs. Peripheral vascular calcifications.
[2023-11-20 08:19] LABS: Absolute Lymphocytes (CBC) 1.6 K/uL (0.7-4.9); Albumin 2.5 g/dL (3.4-5.0); Bilirubin Total 0.5 mg/dL (0.2-1.0); Hematocrit 29.8 % (39.6-49.0); Lymphocytes % 29.9 % (15.3-44.8); MPV 7.2 fL (7.6-11.3); Platelets 280 thou/uL (152-406); Protein, Total 6.9 g/dL (6.4-8.2); RBC Red Blood Cell Count 3.98 M/uL (4.33-5.43); Troponin High Sensitivity 4.1 pg/mL (<58.9)
--- NOTE | 2023-11-20 08:31 | RAD REPORT ---
EXAM DESCRIPTION: RAD - Chest Single View - 11/20/2023 8:20 am CLINICAL HISTORY: COUGH COMPARISON: Chest Single View dated 09/08/2023; Chest Single View dated 06/14/2022; Abdomen 1 View ([facility]) dated 06/11/2022; Chest Single View dated 06/11/2022 FINDINGS: Lines: None. Lungs: No evidence of edema or pneumonia. Pleural: No significant pleural effusions or pneumothorax. Cardiac: The heart size is within normal limits. Mediastinum: Within normal limits. Bones: No acute fractures. Other: None IMPRESSION: No acute cardiopulmonary disease.
--- NOTE | 2023-11-20 08:31 | RAD REPORT ---
EXAM DESCRIPTION: RAD - Tib Fib Right - 11/20/2023 8:21 am CLINICAL HISTORY: PAIN COMPARISON: Tib Fib Right dated 11/18/2023 FINDINGS/IMPRESSION: No acute fracture. No malalignment. No significant focal degenerative changes.
--- NOTE | 2023-11-20 09:08 | EDPHYS ---
Physician Documentation [facility] Name: Jose Ny Age: 63 yrs Sex: Male : 1960 Arrival Date: 11/20/2023 Time: 04:27 Bed 5 Private MD: ED Physician Luis Dickson HPI: 11/20 04:41 This 63 yrs old Male presents to ER via Unassigned with complaints of Leg ec2 Pain. 04:41 Patient arrives today for evaluation of right ankle pain. Patient had a fall several ec2 days ago had not had a repeat fall. Was seen several days ago, had an x-ray that was negative for any acute bony fracture. . Historical: - Allergies: 05:11 No Known Allergies; pf1 - PMHx: 05:11 Cerebrovascular accident; Gout; Arthritis; pf1 05:12 left clavicle fx; pf1 - Immunization history:: Adult Immunizations not up to date, Client reports having NOT received the Covid vaccine. Last tetanus immunization: > 10 years ago Flu vaccine is not up to date. - Social history:: Smoking status: Patient/guardian denies using tobacco, the patient reports quitting approximately 20 years ago, Patient/guardian denies using alcohol, street drugs. ROS: 04:41 Constitutional: as per hpi ec2 Exam: 04:41 Constitutional: GEN: NAD Head: atraumatic Eyes: EOMI Ears: External ears are ec2 normal. CV: regular rate LUNGS: no respiratory distress ABD: non-distended SKIN: no evidence of rashes MSK: Right ankle swelling, TTP, no deformity present, intact distal neurovascular status. NEURO: moves all extremities equally 09:03 ECG was reviewed by the Attending Physician. [facility] Vital Signs: 04:33 BP 127 / 71; Pulse 70; Resp 18; Temp 98.5; Pulse Ox 100% on R/A; Weight 67.13 kg; pf1 Height 5 ft. 8 in. ; Pain 10/10; 05:45 BP 123 / 78; Pulse 56; Resp 17 S; Pulse Ox 100% on R/A; ha1 06:24 BP 122 / 75; Pulse 62; Resp 17 S; Pulse Ox 100% on R/A; ha1 08:37 BP 129 / 70; Pulse 53; Resp 16; Pulse Ox 100% on R/A; iw 04:33 Body Mass Index 22.50 (67.13 kg, 172.72 cm) pf1 04:33 Pain Scale: Adult pf1 MDM: 04:32 Patient medically screened. ec2 04:41 ED course: Patient arrives today for evaluation of a right ankle injury. Examination ec2 remarkable for well-appearing nontoxic individual is otherwise in no acute distress. MSK findings as noted above. Will obtain repeat radiograph, treat the patient symptoms and reassess the patient. Suspect ankle sprain causing patient's symptoms.. 06:12 Data reviewed: vital signs. 2 11/20 07:41 Order name: CBC with Diff; Complete Time: 09:04 [facility] 11/20 07:41 Order name: Comprehensive Metabolic Panel; Complete Time: 08:21 [facility] 11/20 07:41 Order name: Troponin High Sensitivity; Complete Time: 08:21 [facility] 11/20 07:41 Order name: BNP; Complete Time: 08:21 [facility] 11/20 04:41 Order name: Ankle Right 3 View XRAY; Complete Time: 07:39 [facility] 11/20 07:41 Order name: Chest Single View XRAY; Complete Time: 09:04 [facility] 11/20 07:41 Order name: US Extremity Venous W Compression Juan J [facility] 11/20 07:41 Order name: Tib Fib Right XRAY; Complete Time: 09:04 [facility] 11/20 07:41 Order name: EKG; Complete Time: 07:41 [facility] 11/20 04:41 Order name: Ice pack; Complete Time: 05:17 2 11/20 07:41 Order name: EKG - Nurse/Tech; Complete Time: 07:52 [facility] 11/20 07:46 Order name: Walking boot; Complete Time: 09:51 [facility] EC:03 Rate is 61 beats/min. Rhythm is regular. QRS Sabin is Normal. CT interval is normal. QRS kaylynn interval is normal. QT interval is normal. No Q waves. T waves are Normal. No ST changes noted. Clinical impression: NSR w/ Non-specific ST/T Changes and No evidence of ischemia. Interpreted by me. Reviewed by me. Administered Medications: 05:20 Drug: Acetaminophen PO 1000 mg PO once Route: PO; pf1 06:26 Follow up: Response: No adverse reaction; Marked relief of symptoms ha1 05:20 Drug: Ketorolac IM 30 mg IM once Route: IM; Site: right deltoid; pf1 06:26 Follow up: Response: No adverse reaction; Marked relief of symptoms ha1 05:20 Drug: Methocarbamol PO 500 mg PO once Route: PO; pf1 06:26 Follow up: Response: No adverse reaction; Marked relief of symptoms ha1 08:36 Drug: fentaNYL (PF) IVP 25 mcg IVP once Route: IVP; Site: left wrist; iw 08:36 Drug: Ondansetron IVP 4 mg IVP once; over 2 minutes Route: IVP; Site: left wrist; iw 09:51 Not Given (Physician Discretion): fentanyl (pf)25 mcg IVP once iw Disposition Summary: 11/20/23 09:07 Discharge Ordered Notes: Location: Home kaylynn Condition: Stable [facility] Diagnosis - Sprain of ankle kaylynn - Anemia, unspecified kaylynn - Iron deficiency anemia, unspecified kaylynn Followup: ec2 - With: Private Physician - When: - Reason: Recheck today's complaints Followup: kaylynn - With: fErain Santillan MD - When: 2 - 3 days - Reason: Recheck today's complaints, Re-evaluation by your physician Discharge Instructions: - Iron Deficiency Anemia, Adult [facility] - Anemia [facility] - Iron-Rich Diet kaylynn - Iron Deficiency Anemia, Adult, Puoc-sf-Tsep [facility] - Preventing Iron Deficiency Anemia, Adult [facility] - Discharge Summary Sheet ec2 - Ankle Sprain, Yuvp-sl-Jitw ec2 Forms: - Medication Reconciliation Form [facility] - Thank You Letter [facility] - Antibiotic Education [facility] - Prescription Opioid Use [facility] - Patient Portal Instructions [facility] - Leadership Thank You Letter [facility] Prescriptions: - acetaminophen-codeine 300-30 mg Oral tablet - take 2 tablet ORAL route every 6 hours as needed for pain; 20 tablet; Refills: [facility] 0, Product Selection Permitted - Ferrous Sulfate 325 mg (65 mg Iron) Oral Tablet - take 1 tablet ORAL route every 8 hours; 90 tablet; Refills: 0, Product [facility] Selection Permitted - Pepcid 20 mg Oral tablet - take 1 tablet ORAL route every 12 hours for 30 days; 60 tablet; Refills: 0, [facility] Product Selection Permitted - methocarbamol 500 mg Oral tablet - take 2 tablets ORAL route 4 times per day; 20 tablet; Refills: 0, Product ec2 Selection Permitted Signatures: Dispatcher [employer] Luis Martinez MD MD cha Williams, Irene, RN RN iw Finley, Pamala, RN RN pf1 Holden Landis MD MD ec2 Daysi Schafer RN ha1
--- NOTE | 2023-11-20 09:08 | ER ---
Nurse's Notes [facility] Name: Jose Ny Age: 63 yrs Sex: Male : 1960 Arrival Date: 11/20/2023 Time: 04:27 Bed 5 Private MD: Diagnosis: Sprain of ankle;Anemia, unspecified;Iron deficiency anemia, unspecified Presentation: 11/20 04:33 Chief complaint: Patient states: right lower leg pain 10 and ankle pain with pf1 swelling,onset Wednesday, S/P fall. Family member stated patient was seen here on and xray was negative. 04:33 Coronavirus screen: Vaccine status: Patient reports being unvaccinated. Client denies pf1 travel out of the [place] in the last 14 days. At this time, the client does not indicate any symptoms associated with coronavirus-19. Ebola Screen: Patient negative for fever greater than or equal to 101.5 degrees Fahrenheit, and additional compatible Ebola Virus Disease symptoms. Initial Sepsis Screen: Does the patient meet any 2 criteria? No. Patient's initial sepsis screen is negative. Does the patient have a suspected source of infection? No. Patient's initial sepsis screen is negative. Risk Assessment: Do you want to hurt yourself or someone else? Patient reports no desire to harm self or others. 04:33 Method Of Arrival: Wheelchair pf1 04:33 Acuity: DREAD 3 pf1 05:04 Chief complaint:. pf1 Historical: - Allergies: 05:11 No Known Allergies; pf1 - PMHx: 05:11 Cerebrovascular accident; Gout; Arthritis; pf1 05:12 left clavicle fx; pf1 - Immunization history:: Adult Immunizations not up to date, Client reports having NOT received the Covid vaccine. Last tetanus immunization: > 10 years ago Flu vaccine is not up to date. - Social history:: Smoking status: Patient/guardian denies using tobacco, the patient reports quitting approximately 20 years ago, Patient/guardian denies using alcohol, street drugs. Screenin:16 [facility] ED Fall Risk Assessment (Adult) History of falling in the last 3 months, pf1 including since admission Yes- single mechanical fall (1 pt) Confusion or Disorientation No (0 pts) Intoxicated or Sedated No (0 pts) Impaired Gait Yes (1 pt) Mobility Assist Device Used Yes (1 pt) Altered Elimination No (0 pt) Score/Fall Risk Level 3 or more points = High Risk Oriented to surroundings, Maintained a safe environment, Educated pt \\T\\ family on fall prevention, incl call for assistance when getting out of bed, Assessed \\T\\ reinforced patient's understanding of fall precautions, Provided non-skid footwear, Hourly rounding (assess needs \\T\\ fall precautionary measures) done, Used ambulatory aids as needed (educated on \\T\\ assisted with), Used gait belt as appropriate Implemented a Fall Risk Plan of Care, Apply high fall risk patient identification: yellow non skid footwear/ fall signage, Placed fall mat w/ non beveled edge next to bed, Activated bed/chair alarm, Remained w/in arm's length of patient and in sight while toileting, Offered frequent toileting (1:1 observation), Remained with patient while ambulating, Utilized family, sitter, or virtual rug cleaner helper as indicated. Abuse screen: Denies threats or abuse. Nutritional screening: No deficits noted. Tuberculosis screening: No symptoms or risk factors identified. Assessment: 04:35 General: Appears in no apparent distress. comfortable, unkempt, Behavior is calm, pf1 cooperative, appropriate for age, quiet. 04:35 Pain: Complains of pain in right leg and right ankle Pain currently is 10 out of 10 on pf1 a pain scale. Neuro: No deficits noted. Level of Consciousness is awake, alert, obeys commands, Oriented to person, place, time, situation. Cardiovascular: No deficits noted. Capillary refill < 3 seconds Patient's skin is warm and dry. Respiratory: No deficits noted. Airway is patent Respiratory effort is even, unlabored, Respiratory pattern is regular, symmetrical. GI: No deficits noted. No signs and/or symptoms were reported involving the gastrointestinal system. : No deficits noted. No signs and/or symptoms were reported regarding the genitourinary system. EENT: No deficits noted. No signs and/or symptoms were reported regarding the EENT system. Derm: No deficits noted. No signs and/or symptoms reported regarding the dermatologic system. Musculoskeletal: Circulation, motion, and sensation intact. Capillary refill < 3 seconds, Swelling present in right leg Reports pain in right leg and right ankle since Wednesday. 08:36 Reassessment: pt says "hurt, hurt", medicated for pain, pt placed in gown, repositioned iw in bed, sister at bedside , awaiting US. Vital Signs: 04:33 BP 127 / 71; Pulse 70; Resp 18; Temp 98.5; Pulse Ox 100% on R/A; Weight 67.13 kg; pf1 Height 5 ft. 8 in. ; Pain 10/10; 05:45 BP 123 / 78; Pulse 56; Resp 17 S; Pulse Ox 100% on R/A; ha1 06:24 BP 122 / 75; Pulse 62; Resp 17 S; Pulse Ox 100% on R/A; ha1 08:37 BP 129 / 70; Pulse 53; Resp 16; Pulse Ox 100% on R/A; iw 04:33 Body Mass Index 22.50 (67.13 kg, 172.72 cm) pf1 04:33 Pain Scale: Adult pf1 ED Course: 04:30 Patient arrived in ED. gm2 04:32 Holden Landis MD is Attending Physician. ec2 04:35 Patient has correct armband on for positive identification. Bed in low position. Call pf1 light in reach. Side rails up X2. 05:11 Triage completed. pf1 05:14 Ankle Right 3 View XRAY In Process Unspecified. EDMS 07:04 Attending Physician role handed off by Holden Landis MD ec2 07:04 Luis Dickson MD is Attending Physician. ec2 07:29 Ysabel Pat, VASHTI is Primary Nurse. iw 07:47 Inserted saline lock: 20 gauge in left forearm, using aseptic technique. Blood aa5 collected. 07:47 Initial lab(s) drawn, by me, sent to lab. aa5 08:22 Chest Single View XRAY In Process Unspecified. EDMS 08:22 Tib Fib Right XRAY In Process Unspecified. EDMS 09:07 Efrain Santillan MD is Referral Physician. kaylynn 09:37 US Extremity Venous W Compression Juan J In Process Unspecified. EDMS 09:51 Provided Education on: prescriptions . iw 09:51 No provider procedures requiring assistance completed. IV discontinued, intact, iw bleeding controlled, No redness/swelling at site. Pressure dressing applied. Administered Medications: 05:20 Drug: Acetaminophen PO 1000 mg PO once Route: PO; pf1 06:26 Follow up: Response: No adverse reaction; Marked relief of symptoms ha1 05:20 Drug: Ketorolac IM 30 mg IM once Route: IM; Site: right deltoid; pf1 06:26 Follow up: Response: No adverse reaction; Marked relief of symptoms ha1 05:20 Drug: Methocarbamol PO 500 mg PO once Route: PO; pf1 06:26 Follow up: Response: No adverse reaction; Marked relief of symptoms ha1 08:36 Drug: fentaNYL (PF) IVP 25 mcg IVP once Route: IVP; Site: left wrist; iw 08:36 Drug: Ondansetron IVP 4 mg IVP once; over 2 minutes Route: IVP; Site: left wrist; iw 09:51 Not Given (Physician Discretion): fentanyl (pf)25 mcg IVP once iw Medication: 09:51 VIS not applicable for this client. iw Outcome: 09:07 Discharge ordered by . kaylynn 09:51 Discharged to home via wheelchair, with family, iw 09:51 Condition: good 09:51 Discharge instructions given to patient, family, Instructed on discharge instructions, follow up and referral plans. Demonstrated understanding of instructions, follow-up care, medications, Prescriptions given X 4, 09:52 Patient left the ED. iw Signatures: Dispatcher [employer] Luis Martinez MD MD cha Williams, Irene RN VASHTI Omayra Brooks RN RN aa5 Daysi Schafer RN RN ha1 Rupal Hurley RN RN pf1 Holden Landis MD MD ec2 Maranda Curry 2
--- NOTE | 2023-11-20 09:44 | RAD REPORT ---
EXAM DESCRIPTION: US - Extrem Venous W Compress Juan J - 11/20/2023 9:36 am CLINICAL HISTORY: Pain;Swelling COMPARISON: Extrem Venous W Compress Juan J dated 09/08/2023 TECHNIQUE: Real-time sonographic evaluation of the lower extremity deep venous systems was performed using color Doppler, grayscale, and compression. FINDINGS: Bilateral lower extremities. Normal compressibility, flow augmentation, phasic flow and spontaneous flow is identified in both the left and right lower extremity deep venous systems. No intraluminal filling defects seen. IMPRESSION: No DVT in either lower extremity.
[2023-11-20 10:14] VITALS: BP 129/70; TEMP 98.5; O2SAT 100
--- NOTE | 2023-11-22 11:01 | EKG ---
Test Date: 2023-11-20 Test Time: 07:54:32 Music Education Adjunct Professor: GENE MEASUREMENT RESULTS: Intervals: Rate: 61 DE: 114 QRSD: 82 QT: 414 QTc: 416 Ford: P: 74 DE: 114 QRS: 68 T: 59 INTERPRETIVE STATEMENTS: Normal sinus rhythm Normal ECG Compared to ECG 09/08/2023 18:03:42 No significant changes Electronically Signed On 11-22-23 10:57:26 PLATFORM BEATER by Darwin Meek
== END ==
LOC: ER 04:27
DX: S93.401A Sprain of unspecified ligament of right ankle, initial encounter (principal); D50.9 Iron deficiency anemia, unspecified; Z86.73 Personal history of transient ischemic attack (TIA), and cerebral infarction without residual deficits; Z28.310 Unvaccinated for COVID-19
CPT/HCPCS: 93005; 85025; 36415; 84484; 80053; 83880; 71045; 73590; 73610; 93970; 96375; 96372; 96374; 99284; J3010; J2405

== ENCOUNTER → 2023-11-26 | Emergency (ER) | payer OTHER ==
[~2023-11-26] MED LIST changes: -ACETAMINOPHEN 500 MG TAB ONE; -FENTANYL CITR 100 MCG/2 ML ONE; -KETOROLAC 30 MG/ML INJ ONE; +NA CHLORIDE 0.9% 500 ML ONE; -ONDANSETRON 4 MG/2 ML VIAL ONE; -methocarbamoL 500 MG TAB ONE
[2023-11-26 11:43] LABS: Absolute Lymphocytes (CBC) 1.1 K/uL (0.7-4.9); Hematocrit 30.2 % (39.6-49.0); Lymphocytes % 18.9 % (15.3-44.8); MCV 75.1 fL (80-100); MPV 6.6 fL (7.6-11.3); Platelets 300 thou/uL (152-406); RBC Red Blood Cell Count 4.02 M/uL (4.33-5.43)
[2023-11-26 12:08] LABS: Albumin 2.6 g/dL (3.4-5.0); Bilirubin Direct 0.2 mg/dL (0-0.2); Bilirubin Indirect, Calculated 0.2 mg/dL (0.2-0.8); Bilirubin Total 0.4 mg/dL (0.2-1.0); Potassium 3.6 mEq/L (3.5-5.1); Protein, Total 7.3 g/dL (6.4-8.2); Thyroid Stimulating Hormone 1.85 uIU/mL (0.358-3.740); Troponin High Sensitivity 3.4 pg/mL (<58.9)
--- NOTE | 2023-11-26 12:08 | RAD REPORT ---
EXAM DESCRIPTION: RAD - Chest Single View - 11/26/2023 11:40 am CLINICAL HISTORY: dizziness Chest pain. COMPARISON: Chest Single View dated 11/20/2023; Chest Single View dated 09/08/2023; Chest Single View dated 06/14/2022; Abdomen 1 View (KUB) dated 06/11/2022 FINDINGS: Portable technique limits examination quality. The lungs are emphysematous but grossly clear. The heart is normal in size. No displaced fractures. IMPRESSION: No acute intrathoracic process suspected.
[2023-11-26 12:42] LABS: Specific Gravity 1.023 (1.005-1.030); Urine Bacteria None Seen /HPF (<20); Urine Bilirubin NEGATIVE (Negative); Urine Blood Negative (Negative); Urine Clarity Clear (Clear); Urine Color Yellow (Yellow); Urine Glucose NEGATIVE (Negative); Urine Mucus 4+ /HPF (None Seen); Urine Protein TRACE (Negative); Urine Urobilinogen 1+ (Normal); Urine pH 6.5 (5.0-7.0)
--- NOTE | 2023-11-26 13:06 | ER ---
Nurse's Notes [facility] Name: Jose Ny Age: 63 yrs Sex: Male : 1960 Arrival Date: 11/26/2023 Time: 10:14 Bed 7 Private MD: Juan Carlos Adams Diagnosis: Syncope Near;Increased hunger Presentation: 11/26 10:46 Chief complaint: Patient states: Dizziness for 3 days with increased appetite. No ll1 fever. Coronavirus screen: Client denies travel out of the [place] in the last 14 days. At this time, the client does not indicate any symptoms associated with coronavirus-19. Ebola Screen: Patient denies travel to an Ebola-affected area in the 21 days before illness onset. Initial Sepsis Screen: Does the patient meet any 2 criteria? No. Patient's initial sepsis screen is negative. Does the patient have a suspected source of infection? No. Patient's initial sepsis screen is negative. Risk Assessment: Do you want to hurt yourself or someone else? Patient reports no desire to harm self or others. Onset of symptoms was November 24, 2023. 10:46 Method Of Arrival: Ambulatory ll1 10:46 Acuity: DREAD 3 ll1 Triage Assessment: 10:45 General: Appears uncomfortable, Behavior is calm, cooperative, appropriate for age. ll1 Pain: Complains of pain in back Quality of pain is described as aching. Neuro: Reports dizziness. GI: Reports being hungry. Musculoskeletal: Reports pain in back. Historical: - Allergies: 10:40 No Known Allergies; ll1 - PMHx: 10:40 Arthritis; Cerebrovascular accident; Gout; left clavicle fx; ll1 - Immunization history:: Adult Immunizations up to date. - Social history:: Smoking status: Patient denies any tobacco usage or history of. - Family history:: not pertinent. Screenin:21 [facility] ED Fall Risk Assessment (Adult) History of falling in the last 3 months, ld1 including since admission No falls in past 3 months (0 pts). Abuse screen: Denies threats or abuse. Denies injuries from another. Nutritional screening: No deficits noted. Tuberculosis screening: No symptoms or risk factors identified. Assessment: 11:20 General: Appears in no apparent distress. comfortable, Behavior is cooperative, ld1 anxious. Pain: Denies pain. Neuro: Level of Consciousness is awake, alert, obeys commands, Oriented to person, place, time, situation, Appropriate for age. Neuro: Reports dizziness. Cardiovascular: Capillary refill < 3 seconds Patient's skin is warm and dry. Respiratory: Airway is patent Respiratory effort is even, unlabored. GI: Abdomen is flat, non-distended. : No signs and/or symptoms were reported regarding the genitourinary system. EENT: No signs and/or symptoms were reported regarding the EENT system. Derm: No signs and/or symptoms reported regarding the dermatologic system. Musculoskeletal: No signs and/or symptoms reported regarding the musculoskeletal system. 12:35 Reassessment: Patient and/or family updated on plan of care and expected duration. Pain rs5 level reassessed. Patient is alert, oriented x 3, equal unlabored respirations, skin warm/dry/pink. Patient denies pain at this time. Cardiovascular: Rhythm is regular. Respiratory: Respiratory effort is even, unlabored. 13:11 Reassessment: No changes from previously documented assessment. rs5 Vital Signs: 10:46 BP 137 / 81; Pulse 85; Resp 17; Temp 97.7; Pulse Ox 98% ; Pain 7/10; ll1 11:20 BP 148 / 76; Pulse 66; Resp 18; Pulse Ox 97% on R/A; ld1 11:20 BP 148 / 76; Pulse 74; Resp 18; Pulse Ox 97% on R/A; ld1 12:44 Pulse 56; Resp 18; Pulse Ox 100% on R/A; ld1 10:46 Pain Scale: Adult ll1 ED Course: 10:16 Patient arrived in ED. rg4 10:16 Juan Carlos Adams DO is Private Physician. rg4 10:18 Graham Diaz MD is Attending Physician. rt 10:40 Arm band placed on Patient placed in an exam room, on a stretcher. ll1 10:47 Triage completed. ll1 10:59 Robinson Broussard, VASHTI is Primary Nurse. rs5 11:21 Patient has correct armband on for positive identification. Placed in gown. Bed in low ld1 position. Call light in reach. Side rails up X2. monitor technician on. Pulse ox on. NIBP on. Door closed. Noise minimized. Warm blanket given. 11:21 No provider procedures requiring assistance completed. ld1 11:41 XRAY Chest (1 view) In Process Unspecified. EDMS 13:04 Juan Carlos Adams DO is Referral Physician. rt 13:04 Issac Laguerre MD is Referral Physician. rt 13:22 IV discontinued, intact, bleeding controlled, No redness/swelling at site. Pressure rs5 dressing applied. Administered Medications: 11:50 Drug: NS 0.9% IV 500 ml IV at 500 bolus once Route: IV; Rate: 500 bolus; Site: left rs5 antecubital; 12:10 Follow up: Response: No adverse reaction rs5 12:55 Follow up: IV Status: Completed infusion rs5 Medication: 11:21 VIS not applicable for this client. ld1 Outcome: 13:05 Discharge ordered by . rt 13:22 Discharged to home ambulatory, rs5 13:22 Condition: stable 13:22 Discharge instructions given to patient, family, Instructed on discharge instructions, follow up and referral plans. Demonstrated understanding of instructions, follow-up care, 13:23 Patient left the ED. rs5 Signatures: Dispatcher [employer] Lawanda Santacruz rg4 Jonatan Torres, RN RN ll1 Payton Jaramillo RN RN ld1 Graham Diaz MD MD rt Robinson Broussard RN RN rs5
--- NOTE | 2023-11-26 13:06 | EDPHYS ---
Physician Documentation [facility] Name: Jose Ny Age: 63 yrs Sex: Male : 1960 Arrival Date: 11/26/2023 Time: 10:14 Bed 7 Private MD: Bryan [facility] ED Physician Graham Diaz HPI: 11/26 16:34 This 63 yrs old Male presents to ER via Ambulatory with complaints of Dizziness, rt Increased Appetite. 16:34 Patient presents to the ED with reported dizziness, increased number for several weeks. rt Patient denies any abdominal pain, nausea or vomiting. Denies other acute complaints at this time, symptoms are moderate in severity, no other aggravating alleviating factors.. Historical: - Allergies: 10:40 No Known Allergies; ll1 - PMHx: 10:40 Arthritis; Cerebrovascular accident; Gout; left clavicle fx; ll1 - Immunization history:: Adult Immunizations up to date. - Social history:: Smoking status: Patient denies any tobacco usage or history of. - Family history:: not pertinent. ROS: 16:34 Constitutional: Negative for fever, chills, and weight loss, Cardiovascular: Negative rt for chest pain, palpitations, and edema, Respiratory: Negative for shortness of breath, cough, wheezing, and pleuritic chest pain, Abdomen/GI: Negative for abdominal pain, nausea, vomiting, diarrhea, and constipation, MS/Extremity: Negative for injury and deformity, Skin: Negative for injury, rash, and discoloration, 16:34 Neuro: Positive for near syncope, Negative for altered mental status, Exam: 16:34 Constitutional: This is a well developed, well nourished patient who is awake, alert, rt and in no acute distress. Head/Face: Normocephalic, atraumatic. Chest/axilla: Normal chest wall appearance and motion. Nontender with no deformity. No lesions are appreciated. Cardiovascular: Regular rate and rhythm with a normal S1 and S2. No gallops, murmurs, or rubs. Normal PMI, no JVD. No pulse deficits. Respiratory: Lungs have equal breath sounds bilaterally, clear to auscultation and percussion. No rales, rhonchi or wheezes noted. No increased work of breathing, no retractions or nasal flaring. Abdomen/GI: Soft, non-tender, with normal bowel sounds. No distension or tympany. No guarding or rebound. No evidence of tenderness throughout. Skin: Warm, dry with normal turgor. Normal color with no rashes, no lesions, and no evidence of cellulitis. MS/ Extremity: Pulses equal, no cyanosis. Neurovascular intact. Full, normal range of motion. Neuro: Awake and alert, GCS 15, oriented to person, place, time, and situation. Cranial nerves II-XII grossly intact. Motor strength 5/5 in all extremities. Sensory grossly intact. Cerebellar exam normal. Normal gait. 16:34 ECG was reviewed by the Attending Physician. Vital Signs: 10:46 BP 137 / 81; Pulse 85; Resp 17; Temp 97.7; Pulse Ox 98% ; Pain 7/10; ll1 11:20 BP 148 / 76; Pulse 66; Resp 18; Pulse Ox 97% on R/A; ld1 11:20 BP 148 / 76; Pulse 74; Resp 18; Pulse Ox 97% on R/A; ld1 12:44 Pulse 56; Resp 18; Pulse Ox 100% on R/A; ld1 10:46 Pain Scale: Adult ll1 MDM: 10:56 Patient medically screened. rt 16:34 Differential diagnosis: Early satiety, dysrhythmia, thyroid disturbance, diabetes. Data rt reviewed: vital signs, nurses notes, lab test result(s), EKG, radiologic studies. I considered the following discharge prescriptions or medication management in the emergency department Medications were administered in the Emergency Department. See MAR. Test considered but Not performed: CT: No acute focal neurodeficits, CT scan of the head not indicated, no abdominal tenderness, CT scan of the abdomen pelvis not indicated. Counseling: I had a detailed discussion with the patient and/or guardian regarding the historical points, exam findings, and any diagnostic results supporting the discharge/admit diagnosis, lab results, radiology results, the need for outpatient follow up, to return to the emergency department if symptoms worsen or persist or if there are any questions or concerns that arise at home. 11/26 11:11 Order name: Basic Metabolic Panel; Complete Time: 12:10 rt 11/26 11:11 Order name: CBC with Diff; Complete Time: 12:10 rt 11/26 11:11 Order name: LFT's; Complete Time: 12:10 rt 11/26 11:11 Order name: Magnesium; Complete Time: 12:10 rt 11/26 11:11 Order name: Troponin HS; Complete Time: 12:10 rt 11/26 11:11 Order name: UAM; Complete Time: 12:51 rt 11/26 11:11 Order name: TSH; Complete Time: 12:10 rt 11/26 11:11 Order name: XRAY Chest (1 view); Complete Time: 12:10 rt 11/26 11:11 Order name: EKG; Complete Time: 11:12 rt 11/26 11:11 Order name: Cardiac monitoring; Complete Time: 11:13 rt 11/26 11:11 Order name: EKG - Nurse/Tech; Complete Time: 11:57 rt 11/26 11:11 Order name: IV Saline Lock; Complete Time: 11:57 rt 11/26 11:11 Order name: Labs collected and sent; Complete Time: 11:57 rt 11/26 11:11 Order name: O2 Per Protocol; Complete Time: 11:13 rt 11/26 11:11 Order name: O2 Sat Monitoring; Complete Time: 11:13 rt EC:34 Rate is 63 beats/min. Rhythm is regular, Normal Sinus Rhythm with No ectopy. QRS [place] rt is Normal. TX interval is normal. QRS interval is normal. QT interval is normal. No Q waves. T waves are Normal. No ST changes noted. Interpreted by me. Administered Medications: 11:50 Drug: NS 0.9% IV 500 ml IV at 500 bolus once Route: IV; Rate: 500 bolus; Site: left rs5 antecubital; 12:10 Follow up: Response: No adverse reaction rs5 12:55 Follow up: IV Status: Completed infusion rs5 Disposition Summary: 11/26/23 13:05 Discharge Ordered Notes: Location: Home rt Problem: new rt Symptoms: have improved rt Condition: Stable rt Diagnosis - Syncope Near rt - Increased hunger rt Followup: rt - With: Juan Carlos Adams DO - When: 2 - 3 days - Reason: Followup: rt - With: Issac Laguerre MD - When: 2 - 3 days - Reason: Discharge Instructions: - Discharge Summary Sheet rt - Near-Syncope rt Forms: - Medication Reconciliation Form rt - Thank You Letter rt - Antibiotic Education rt - Prescription Opioid Use rt - Patient Portal Instructions rt - Leadership Thank You Letter rt Signatures: Dispatcher [employer] Jonatan Morin, RN RN ll1 Payton Jaramillo RN RN ld1 Graham Diaz MD MD rt Robinson Broussard RN RN rs5
[2023-11-26 13:29] VITALS: BP 148/76; TEMP 97.7
[2023-11-26 13:51] VITALS: O2SAT 100
--- NOTE | 2023-11-29 14:39 | EKG ---
Test Date: 2023-11-26 Test Time: 11:50:39 Software Implementation Project Manager: ROCIO MEASUREMENT RESULTS: Intervals: Rate: 63 SD: 96 QRSD: 80 QT: 398 QTc: 407 Anderson: P: 55 SD: 96 QRS: 66 T: 49 INTERPRETIVE STATEMENTS: Sinus rhythm with short SD Otherwise normal ECG Compared to ECG 11/20/2023 07:54:32 Short SD interval now present Electronically Signed On 11-29-23 14:30:12 ELECTRIC MOTOR REPAIR SUPERVISOR by Barry Castro
== END ==
LOC: ER 10:14
DX: R55 Syncope and collapse (principal); R63.2 Polyphagia; Z86.73 Personal history of transient ischemic attack (TIA), and cerebral infarction without residual deficits
CPT/HCPCS: 85025; 81001; 80048; 36415; 83735; 80076; 84443; 84484; 71045; J7040; 93005

== ENCOUNTER 2024-01-21 10:29 | Emergency (ER) | payer OTHER ==
--- NOTE | 2024-01-21 12:30 | RAD REPORT ---
EXAM DESCRIPTION: US - UPPER EXTREMITY VENOUS UNILATE - 01/21/2024 12:03 pm CLINICAL HISTORY: Hand swelling COMPARISON: None. TECHNIQUE: Real-time sonographic evaluation of the left upper extremity deep venous system was perfo rmed. FINDINGS: Normal compressibility, flow augmentation, phasic flow and spontaneous flow is identified in the left upper extremity deep venous system. No intraluminal filling defects seen. Multiple prominent lymph nodes seen in the left axilla, largest measuring 3.5 x 3.3 x 2.4 cm. Nonspec ific heterogeneous left periarticular soft tissue swelling with areas of non loculated fluid. IMPRESSION: No DVT in the left upper extremity. Multiple prominent lymph nodes seen in the left axilla, largest measuring 3.5 x 3.3 x 2.4 cm. Nonspecific heterogeneous left periarticular soft tissue swelling with areas of non loculated fluid.
--- NOTE | 2024-01-21 12:33 | RAD REPORT ---
EXAM DESCRIPTION: US - Extremity Venous Uni Ltd - 01/21/2024 12:17 pm CLINICAL HISTORY: Swelling COMPARISON: None. TECHNIQUE: Real-time sonographic evaluation of the right lower extremity deep venous system was perf ormed. FINDINGS: Normal compressibility, flow augmentation, phasic flow and spontaneous flow is identified in the right lower extremity deep venous system. No intraluminal filling defects seen. IMPRESSION: No DVT in the right lower extremity.
--- NOTE | 2024-01-21 12:36 | RAD REPORT ---
EXAM DESCRIPTION: RAD - Wrist Left 3 View - 01/21/2024 12:25 pm CLINICAL HISTORY: SWELLING COMPARISON: No comparisons TECHNIQUE: Left wrist, 3 views. FINDINGS: No acute fracture. Deformities and chronic osseous remodeling with some areas of organized callus along the proximal left metacarpal, lateral bones of the carpus, and distal radius. There is no dislocation or periosteal reaction noted. No suspicious bony finding. No foreign body or other sof t tissue abnormality. Vascular calcifications. IMPRESSION: Chronic findings as above along the lateral wrist and proximal left metacarpal, may rela te to sequelae of remote trauma or osteomyelitis. An element of acute osteomyelitis would be difficul t to exclude.
--- NOTE | 2024-01-21 12:36 | RAD REPORT ---
EXAM DESCRIPTION: RAD - Knee Right 3 View - 01/21/2024 12:25 pm CLINICAL HISTORY: SWELLING COMPARISON: Knee Right 3 View dated 11/18/2023 TECHNIQUE: Right knee, 3 views. FINDINGS: No fracture, dislocation or periosteal reaction.No joint effusion seen. Mild tricompartmen pavel degenerative changes. No joint space narrowing. No soft tissue abnormality. IMPRESSION: Negative right knee.
--- NOTE | 2024-01-21 13:33 | ER ---
Nurse's Notes [facility] Name: Jose Ny Age: 63 yrs Sex: Male : 1960 Arrival Date: 01/21/2024 Time: 10:29 Bed 12 Private MD: Juan Carlos Adams Diagnosis: Edema to right lower extremity;Edema to left wrist Presentation: 01/20 10:46 Chief complaint: Parent and/or Guardian states: the patient has been having right leg ap3 and left arm/hand pain for "some time", possibly since November. When the patients manager of loss prevention operations called the patients to get in for a visit, she was informed to bring him to the ED for evaluation first. Coronavirus screen: At this time, the client does not indicate any symptoms associated with coronavirus-19. Ebola Screen: No symptoms or risks identified at this time. Initial Sepsis Screen: Does the patient meet any 2 criteria? No. Patient's initial sepsis screen is negative. Initial Sepsis Screen: Does the patient have a suspected source of infection? No. Patient's initial sepsis screen is negative. Risk Assessment: Do you want to hurt yourself or someone else? Patient reports no desire to harm self or others. Onset of symptoms is unknown. 10:46 Method Of Arrival: Wheelchair ap3 10:46 Acuity: DREAD 3 ap3 Triage Assessment: 10:48 General: Appears in no apparent distress. Behavior is calm, cooperative. Pain: ap3 Complains of pain in left hand, left arm and right leg. Neuro: Level of Consciousness is awake, alert, obeys commands, Oriented to person, place, time, slow to respond, but given time he does respond appropriately . Cardiovascular: Patient's skin is warm and dry. Respiratory: Airway is patent Respiratory effort is even, unlabored, Respiratory pattern is regular, symmetrical. Historical: - Allergies: 10:48 No Known Allergies; ap3 - PMHx: 10:48 Arthritis; Cerebrovascular accident; Gout; left clavicle fx; ap3 - Immunization history:: Client reports having NOT received the Covid vaccine. Last tetanus immunization: unknown, Flu vaccine is not up to date. - Infectious Disease History:: Denies. - Social history:: Smoking status: Patient denies any tobacco usage or history of. - Family history:: not pertinent. Screenin:49 [facility] ED Fall Risk Assessment (Adult). Abuse screen: Denies threats or abuse. ap3 Nutritional screening: No deficits noted. 10:49 Tuberculosis screening: No symptoms or risk factors identified. ap3 Assessment: 13:30 General: Appears in no apparent distress. comfortable, Behavior is calm, cooperative, bp appropriate for age. Vital Signs: 10:46 BP 114 / 65; Pulse 70; Resp 17; Temp 98.7; Pulse Ox 100% ; ap3 ED Course: 10:31 Patient arrived in ED. mr 10:32 Juan Carlos Adams DO is Private Physician. mr 10:35 Graham Diaz MD is Attending Physician. rt 10:48 Triage completed. ap3 10:50 Arm band placed on right wrist. ap3 11:41 Radiology exam delayed due to patient in US at the time of attempting xray. md2 12:05 Extremity Venous Uni Ltd US In Process Unspecified. EDMS 12:05 UPPER EXTREMITY VENOUS UNILATE In Process Unspecified. EDMS 12:27 Knee Right 3 View XRAY In Process Unspecified. EDMS 12:27 Wrist Left (3 View) XRAY In Process Unspecified. EDMS 13:22 Patient placed in an exam room, in a wheelchair. ll1 13:28 Elroy Brown, RN is Primary Nurse. bp 13:30 Patient has correct armband on for positive identification. Provided Education on: N/A. bp 13:30 No provider procedures requiring assistance completed. Patient did not have IV access bp during this emergency room visit. 13:32 Juan Carlos Adams DO is Referral Physician. rt Administered Medications: No medications were administered Medication: 13:30 VIS not applicable for this client. bp Outcome: 13:33 Discharge ordered by . rt 13:50 Discharged to home via wheelchair, with family, bp 13:50 Condition: stable 13:50 Discharge instructions given to patient, family, Instructed on discharge instructions, follow up and referral plans. Demonstrated understanding of instructions, follow-up care, 13:50 Patient left the ED. bp Signatures: Dispatcher [employer] EDMS Shea Carter, Reg Reg mr Elroy Brown, RN RN bp Ligia Harper RN RN ap3 Jonatan Torres RN RN ll1 Veronica Madrid md2 Graham Diaz MD MD rt
--- NOTE | 2024-01-21 13:33 | EDPHYS ---
Physician Documentation [facility] Name: Jose Ny Age: 63 yrs Sex: Male : 1960 Arrival Date: 01/21/2024 Time: 10:29 Bed 12 Private MD: Bryan [facility] ED Physician Graham Diaz HPI: 01/20 11:24 This 63 yrs old Male presents to ER via Wheelchair with complaints of Hand Swelling, rt Leg Swelling, Shoulder Pain. 11:24 Patient presents to the ED with a left wrist, right leg swelling since a fall in rt November. Patient is trying to get into a longterm. Tried to get in with his PCP who requested he come to the ED for imaging. Unclear what specific imaging was requested. Denies any worsening of the symptoms, significant pain. Denies other acute complaints, symptoms are mild in severity, no other aggravating or alleviating factors.. Historical: - Allergies: 10:48 No Known Allergies; ap3 - PMHx: 10:48 Arthritis; Cerebrovascular accident; Gout; left clavicle fx; ap3 - Immunization history:: Client reports having NOT received the Covid vaccine. Last tetanus immunization: unknown, Flu vaccine is not up to date. - Infectious Disease History:: Denies. - Social history:: Smoking status: Patient denies any tobacco usage or history of. - Family history:: not pertinent. ROS: 11:24 Constitutional: Negative for fever, chills, and weight loss, Cardiovascular: Negative rt for chest pain, palpitations, and edema, Respiratory: Negative for shortness of breath, cough, wheezing, and pleuritic chest pain, Abdomen/GI: Negative for abdominal pain, nausea, vomiting, diarrhea, and constipation, Skin: Negative for injury, rash, and discoloration, Neuro: Negative for headache, weakness, numbness, tingling, and seizure, 11:24 MS/extremity: Positive for pain, swelling, Exam: 11:24 Constitutional: This is a well developed, well nourished patient who is awake, alert, rt and in no acute distress. Head/Face: Normocephalic, atraumatic. Chest/axilla: Normal chest wall appearance and motion. Nontender with no deformity. No lesions are appreciated. Cardiovascular: Regular rate and rhythm with a normal S1 and S2. No gallops, murmurs, or rubs. Normal PMI, no JVD. No pulse deficits. Respiratory: Lungs have equal breath sounds bilaterally, clear to auscultation and percussion. No rales, rhonchi or wheezes noted. No increased work of breathing, no retractions or nasal flaring. Abdomen/GI: Soft, non-tender, with normal bowel sounds. No distension or tympany. No guarding or rebound. No evidence of tenderness throughout. Skin: Warm, dry with normal turgor. Normal color with no rashes, no lesions, and no evidence of cellulitis. 11:24 Musculoskeletal/extremity: Bilateral lower extremity swelling, right worse than left. No appreciable areas of tenderness. There is swelling to the left wrist, also no appreciable tenderness, no deformities noted or bruising. Pulses, motor, sensation intact. Vital Signs: 10:46 BP 114 / 65; Pulse 70; Resp 17; Temp 98.7; Pulse Ox 100% ; ap3 MDM: 10:52 Patient medically screened. rt 13:50 Differential diagnosis: Arthritis, DVT, peripheral edema. Data reviewed: vital signs, rt nurses notes, radiologic studies, CT scan, ultrasound. Care significantly affected by the following chronic conditions: Congestive Heart Failure. Counseling: I had a detailed discussion with the patient and/or guardian regarding the historical points, exam findings, and any diagnostic results supporting the discharge/admit diagnosis, radiology results, the need for outpatient follow up. ED course: Discussed with patient incidental findings of chronic changes of the wrist as well as findings of lymphadenopathy. I do not see signs of acute infection currently. Do not believe that emergent interventions are indicated at this time, patient is stable for outpatient care with primary care.. 01/20 10:59 Order name: Extremity Venous Uni Ltd US; Complete Time: 12:39 rt 01/20 10:59 Order name: Knee Right 3 View XRAY; Complete Time: 12:39 rt 01/20 10:59 Order name: Wrist Left (3 View) XRAY; Complete Time: 12:39 rt 01/20 11:18 Order name: UPPER EXTREMITY VENOUS UNILATE; Complete Time: 12:39 EDMS Administered Medications: No medications were administered Disposition Summary: 01/21/24 13:33 Discharge Ordered Notes: Location: Home rt Problem: new rt Symptoms: are unchanged rt Condition: Stable rt Diagnosis - Edema to right lower extremity rt - Edema to left wrist rt Followup: rt - With: Juan Carlos Adams DO - When: 2 - 3 days - Reason: Discharge Instructions: - Discharge Summary Sheet rt - Edema rt Forms: - Medication Reconciliation Form rt - Thank You Letter rt - Antibiotic Education rt - Prescription Opioid Use rt - Patient Portal Instructions rt - Leadership Thank You Letter rt Signatures: Dispatcher [employer] Ligia Newton RN RN ap3 Graham Diaz MD MD rt
[2024-01-21 14:27] VITALS: BP 114/65; TEMP 98.7; O2SAT 100
== END 2024-01-21 13:50 | disposition home or self-care (01) ==
LOC: ER 10:29
DX: R60.0 Localized edema (principal)
CPT/HCPCS: 93971; 99282